=== PATIENT | female | born 1950 | race Two or more races ===

== ENCOUNTER 2020-11-16 10:51 | Inpatient (IN) | payer MEDICARE, MEDICAID ==
[~2020-11-16] VITALS: Ht 160 cm; Wt 90.7 kg
--- NOTE | 2020-11-16 10:55 | NUR ---
ED Nurse Note: pt presents to ED for AMS, per pt's daughter, she lives at home with another daughter who is COVID (+), she reports that pt has been isolating herself but in the last two days has experienced loss of appetite and increased confusion. at baseline, pt is AOx4 but today is AOx2, able to follow commands and answer simple questions. pt's daughter also reports that she has not been taking her HTN meds for unk amount of time, her BP upon triage is noted to be 231/103. pt is ambulatory with steady gait, when asked about px, she reports "a little" but cannot indicate where. pt is mildy repsonsive to pain, pulls away from COVID nasal swab. skin appears to be warm, dry and intact. vitals are otherwise stable. isolation precautions initiated
[2020-11-16 11:38] VITALS: BP 235/109
[2020-11-16 11:41] VITALS: BP 200/89
[2020-11-16 11:53] LABS: APPEARANCE,URINE CLEAR; BILIRUBIN, URINE NEGATIVE (NEGATIVE); GLUCOSE, URINE (UA) 1+ (NEGATIVE); KETONES,URINE 1+ (NEGATIVE); LEUKOCYTE ESTERASE ,URINE 1+ (NEGATIVE); NITRITE,URINE NEGATIVE (NEGATIVE); PH,URINE 6 (4.5-8.0); PROTEIN,URINE 2+ (NEGATIVE); UROBILINOGEN,URINE 1 MG/DL (0.0-1.0)
[2020-11-16 11:55] LABS: BASOPHILS % (AUTO) 1.3 % (0.0-2.0); EOSINOPHILS % (AUTO) 1.6 % (0.0-3.0); HEMOGLOBIN 13.8 G/DL (12.0-16.0); LYMPHOCYTES % (AUTO) 21.3 % (20.0-45.0); MEAN CORPUSCULAR VOLUME 92 FL (80-99); NEUTROPHILS % (AUTO) 65.9 % (45.0-75.0); PLATELET COUNT 187 K/UL (150-450); RED BLOOD COUNT 4.77 M/UL (4.20-5.40); WHITE BLOOD COUNT 8.6 K/UL (4.8-10.8)
[2020-11-16 11:56] LABS: COLOR,URINE YELLOW
[2020-11-16 11:57] LABS: INR 1.1 (0.9-1.1)
--- NOTE | 2020-11-16 12:02 | Emergency Room Report ---
History of Present Illness General Chief Complaint: Altered Mental Status Source: Patient Present Illness HPI Patient is a 70-year-old female past medical history of hypertension who was brought in by her family for altered mental status. Per family patient has been staying with her daughter who is COVID-19 positive. Over the past 2 days they report that the patient has become altered has had decreased appetite and appears fatigued. Patient is awake but not alert. She is able to follow commands but cannot give any history. Allergies: Coded Allergies: EGG (Verified Allergy, Unknown, 11/16/20) Shrimp (Verified Allergy, Unknown, 11/16/20) COVID-19 Screening Contact w/high risk pt: Yes Experienced COVID-19 symptoms?: No COVID-19 Testing performed CUSTOMER LOYALTY REPRESENTATIVE: Yes - pt's daughter has COVID COVID-19 Screening: Negative COVID-19 COVID-19 Testing Source: 2 days ago urgent care Patient History Reviewed Nursing Documentation: PMH: Agreed; PSxH: Agreed Nursing Documentation-PMH Past Medical History: No History, Except For Hx Hypertension: Yes Hx Asthma: Yes Review of Systems All Other Systems: limited - Altered mental status Physical Exam Vital Signs Date Time Temp Pulse Resp B/P (MAP) Pulse Ox O2 Delivery O2 Flow Rate FiO2 11/16/20 10:52 98.6 69 20 231/103 (145) 97 Room Air Sp02 EP Interpretation: reviewed, normal General Appearance: no apparent distress, alert, non-toxic Head: normocephalic, atraumatic Eyes: bilateral eye normal inspection, bilateral eye PERRL ENT: hearing grossly normal, normal pharynx, no angioedema, normal voice Neck: full range of motion, supple/symm/no masses Respiratory: no respiratory distress, no accessory muscle use, other - Right lower lobe rhonchi Cardiovascular #1: regular rate, rhythm Gastrointestinal: non tender, soft, no guarding, no rebound Rectal: deferred Genitourinary: no CVA tenderness Musculoskeletal: no calf tenderness, no lower extremity edema Neurologic: two way radio installer III-XII nml as tested Skin: no rash Lymphatic: no adenopathy Medical Decision Making Diagnostic Impression: Primary Impression: Encephalopathy Additional Impressions: Malignant hypertension Pneumonia ER Course Patient has been pancultured. Patient is a rapid COVID-19 PCR negative but patient kept as PUI. Patient CT brain demonstrates evidence of prior infarct but radiologist recommends MRI to rule out subacute infarct. Patient has been given aspirin and MRI has been ordered and is pending. Patient's chest x-ray consistent with pneumonia. Patient started on azithromycin as well as cefepime. Patient presented very hypertensive and has been given hydralazine. Patient's blood pressure has improved to 139/102. Patient will be admitted for further treatment and evaluation. Laboratory Tests Test 11/16/20 11:20 White Blood Count 8.6 K/UL (4.8-10.8) Red Blood Count 4.77 M/UL (4.20-5.40) Hemoglobin 13.8 G/DL (12.0-16.0) Hematocrit 44.0 % (37.0-47.0) Mean Corpuscular Volume 92 FL (80-99) Mean Corpuscular Hemoglobin 28.8 PG (27.0-31.0) Mean Corpuscular Hemoglobin Concent 31.2 G/DL (32.0-36.0) L Red Cell Distribution Width 14.0 % (11.6-14.8) Platelet Count 187 K/UL (150-450) Mean Platelet Volume 8.2 FL (6.5-10.1) Neutrophils (%) (Auto) 65.9 % (45.0-75.0) Lymphocytes (%) (Auto) 21.3 % (20.0-45.0) Monocytes (%) (Auto) 10.0 % (1.0-10.0) Eosinophils (%) (Auto) 1.6 % (0.0-3.0) Basophils (%) (Auto) 1.3 % (0.0-2.0) Prothrombin Time 11.7 SEC (9.30-11.50) H Prothrombin Time INR 1.1 (0.9-1.1) Activated Partial Thromboplast Time 25 SEC (23-33) D-Dimer 0.65 mg/L FEU (0.00-0.49) H Urine Color Yellow Urine Appearance Clear Urine pH 6 (4.5-8.0) Urine Specific [place] 1.025 (1.005-1.035) Urine Protein 2+ (NEGATIVE) H Urine Glucose (UA) 1+ (NEGATIVE) H Urine Ketones 1+ (NEGATIVE) H Urine Blood 1+ (NEGATIVE) H Urine Nitrite Negative (NEGATIVE) Urine Bilirubin Negative (NEGATIVE) Urine Urobilinogen 1 MG/DL (0.0-1.0) H Urine Leukocyte Esterase 1+ (NEGATIVE) H Urine RBC 0-2 /HPF (0 - 2) Urine WBC 0-2 /HPF (0 - 2) Urine Squamous Epithelial Cells Few /LPF (NONE/OCC) Urine Bacteria Few /HPF (NONE) Urine Mucus Few /LPF (NONE/OCC) H Sodium Level 136 MMOL/L (136-145) Potassium Level 3.7 MMOL/L (3.5-5.1) Chloride Level 100 MMOL/L (98-107) Carbon Dioxide Level 27 MMOL/L (21-32) Anion Gap 9 mmol/L (5-15) Blood Urea Nitrogen 22 mg/dL (7-18) H Creatinine 0.9 MG/DL (0.55-1.30) Estimated Glomerular Filtration Rate > 60 mL/min (>60) Glucose Level 222 MG/DL (74-106) H Lactic Acid Level Pending Calcium Level 9.0 MG/DL (8.5-10.1) Magnesium Level 2.2 MG/DL (1.8-2.4) Ferritin 38 NG/ML (8-388) Total Bilirubin 0.5 MG/DL (0.2-1.0) Aspartate Amino Transferase (AST) 28 U/L (15-37) Alanine Aminotransferase (ALT) 23 U/L (12-78) Alkaline Phosphatase 68 U/L (46-116) Lactate Dehydrogenase 205 U/L (81-234) Total Creatine Kinase 91 U/L (26-308) Troponin I 0.012 ng/mL (0.000-0.056) C-Reactive Protein, Quantitative Pending Pro-B-Type Natriuretic Peptide 461 pg/mL (0-125) H Total Protein 8.1 G/DL (6.4-8.2) Albumin 3.3 G/DL (3.4-5.0) L Globulin 4.8 g/dL Albumin/Globulin Ratio 0.7 (1.0-2.7) L Microbiology Date/Time Source Procedure Growth Status 11/16/20 11:20 Nasopharynx SARS-CoV-2 RdRp Gene Assay - Final Complete EKG Diagnostic Results Troponin ordered: Yes When was troponin ordered?: Nov 16, 2020 EKG Time: 11:15 EP Interpretation: Sylvia Pelayo MD Rate: bradycardiac - 59 bpm Rhythm: other - Sinus bradycardia ST Segments: no acute changes ASA given to the pt in ED: No Rhythm Strip Diag. Results Rhythm Strip Time: 12:01 EP Interpretation: yes - Sylvia Pelayo MD Rate: 88 bpm Rhythm: NSR, no PVC's, no ectopy Chest X-Ray Diagnostic Results Chest X-Ray Diagnostic Results : Chest X-Ray Ordered: Yes # of Views/Limited/Complete: 1 View Indication: Other - Acute encephalopathy EP Interpretation: Yes Interpretation: no effusion, no pneumothorax, other - Right lower lobe infiltrate Impression: Other - Pneumonia Electronically Signed by: Sylvia Pelayo MD Last Vital Signs Date Time Temp Pulse Resp B/P (MAP) Pulse Ox O2 Delivery O2 Flow Rate FiO2 11/16/20 11:41 200/89 11/16/20 11:38 98.6 18 97 Room Air 11/16/20 11:11 78 Disposition: ADMITTED INPATIENT - Telemetry Condition: Critical Physician Consult: Dr. White at 1250pm Referrals: [facility] (PCP) Additional Instructions: I spoke with Dr. Reno from [facility] who states they will not be transferring any patients from this area at this time. Please note that this report is being documented using [employer]on[employer] technology. This can lead to erroneous entry secondary to incorrect interpretation by the dictating instrument. Sylvia Pelayo M.D. Nov 16, 2020 12:02
[2020-11-16 12:07] LABS: ANION GAP 9 mmol/L (5-15); BLOOD UREA NITROGEN 22 mg/dL (7-18); CARBON DIOXIDE 27 MMOL/L (21-32); CHLORIDE 100 MMOL/L (98-107); CREATININE 0.9 MG/DL (0.55-1.30); POTASSIUM 3.7 MMOL/L (3.5-5.1); SODIUM 136 MMOL/L (136-145)
--- NOTE | 2020-11-16 12:21 | Diagnostic Imaging Report ---
FILM CXR 1 VIEW INDICATION: Altered mental status COMPARISON: None FINDINGS: Single frontal view demonstrates a prominent heart size. Interstitial prominence with subtle right upper and right lower lobe and left lower lobe opacities. No effusion or pneumothorax. The visualized osseous structures are within normal limits. IMPRESSION: Enlarged heart and interstitial prominence with right upper and bilateral lower lobe infiltrates
[2020-11-16 12:26] LABS: ALANINE AMINOTRANSFERASE 23 U/L (12-78); ALBUMIN 3.3 G/DL (3.4-5.0); ALBUMIN/GLOBULIN RATIO 0.7 (1.0-2.7); ALKALINE PHOSPHATASE 68 U/L (46-116); ASPARTATE AMINO TRANSFERASE 28 U/L (15-37); BILIRUBIN,TOTAL 0.5 MG/DL (0.2-1.0); CREATINE KINASE 91 U/L (26-308); FERRITIN 38 NG/ML (8-388); LACTATE DEHYDROGENASE 205 U/L (81-234)
[2020-11-16] MEDS ORDERED: Cefepime HCl 2 GM in D5W 55 ML IVPB ONE (12:45)
[2020-11-16] MEDS ORDERED: Azithromycin 500 MG in NS 275 ML IV ONE (12:45)
--- NOTE | 2020-11-16 12:50 | Diagnostic Imaging Report ---
CT HEAD Without Contrast HISTORY: Altered mental status TECHNIQUE: One or more of the following dose reduction techniques were used: automated exposure control, adjustment of the mA and/or kV according to patient size, use of iterative reconstruction technique. One or more of the following dose reduction techniques were used: automated exposure control, adjustment of the mA and/or kV according to patient size, use of iterative reconstruction technique. Total Exam volume computed tomography dose index (CTDIvol) = 53.4 mGy and Dose Length Product (DLP) = 1018.8mGY-c. Axial CT images of the head obtained. Coronal reconstructions were obtained. COMPARISON: None FINDINGS: There is an area of hypoattenuation in the left temporal and parietal lobe with volume loss. Mild periventricular white matter hypoattenuation. No acute hemorrhage or mass-effect or midline shift. Paranasal sinuses and mastoid air cells are unremarkable. No skull fracture seen. Orbital structures are unremarkable. IMPRESSION: Hypoattenuation in the left parietal and temporal lobe which has the appearance of a prior infarct although subacute ischemia cannot be excluded. This may be further evaluated with MRI. There is no acute hemorrhage or mass-effect or midline shift.
[2020-11-16 13:11] VITALS: BP 168/63
--- NOTE | 2020-11-16 13:25 | NUR ---
ED Nurse Note: reflex lactic drawn and sent to lab
--- NOTE | 2020-11-16 13:27 | NUR ---
ED Nurse Note: R forearm IV site infiltrated and removed. new IV line established to L AC; 22g, patent and intact, infusing abx per ERMD order
--- NOTE | 2020-11-16 14:21 | NUR ---
ED Nurse Note: Spoke with pt's daughter Deanna Argueta - [phone]. Per daughter, pt is supposed to be taking blood pressure medication but does not take it. Pt's daughter is unable to provide list of meds.
[2020-11-16 15:15] VITALS: BP_SYST 161; BP_SYST 186; BP_DIAS 61; BP_DIAS 80
--- NOTE | 2020-11-16 15:58 | Diagnostic Imaging Report ---
MRI HEAD Without Contrast HISTORY: Altered mental status COMPARISON: Head CT 16 November 2020 TECHNIQUE: Multiplanar and multiecho MRI images of the brain obtained without contrast FINDINGS: No abnormal intra- or extra-axial collections or parenchymal lesions are seen. There are involutional changes with prominence of the sulci, basal cisterns and ventricles. Scattered white matter hyperintensities are present, likely from small vessel disease. Large area of restricted diffusion involving the left temporal lobe and occipital lobe corresponding to a hypoattenuation the recent head CT without hemorrhagic changes.. This area demonstrates edema and sulcal thickening. IMPRESSION: 1. Restricted diffusion from acute or subacute ischemia involving the left temporal and occipital lobes. No midline shift appreciated. Age- related changes are present. No acute hemorrhage. 2. Involutional changes with small vessel disease.
--- NOTE | 2020-11-16 17:00 | NUR ---
ED Nurse Note: pt's BP in 180-190 range systolically, ERMD notified
--- NOTE | 2020-11-16 17:13 | Consultation ---
History of Present Illness General Date patient seen: Nov 16, 2020 Time patient seen: 15:30 Chief Complaint: Altered Mental Status Referring physician: Dr White Reason for Consultation: PNA Present Illness HPI 89 years old Wolof speaking female with past medical history of hypertension, asthma, was brought by he family due to altered mental status. Patient was staying at home with her daughter, who was diagnosed with COVID-19 . Over the past few days patient became altered , had decreased appetite and appeared fatigued. Patient was able to follow commands , but unable to provide any history. Upon evaluation she was afebrile , pulse oximetry was stable on room air, blood pressure was significantly elevated 231/103. CT of the head revealed hypoattenuation in the left parietal and temporal lobe, which had appearance of a prior infarct, although subacute ischemia cannot be excluded. No acute hemorrhage or mass-effect or midline shift. Chest x-ray revealed enlarged heart and interstitial prominence with right upper and bilateral lower lobe infiltrates. MRI of the brain revealed restricted diffusion from acute or subacute ischemia, involving the left temporal and occipital lobes. No acute hemorrhage, no midline shift. Small vessel disease. Laboratory work-up revealed no leukocytosis, stable hemoglobin , hematocrit and platelet count. Stable electrolytes. Lactic acid 2.1 , repeated 1.9 Glucose 222 Troponin negative , pro BNP 461 . BUN 22 , creatinine 0.9. Albumin 3.3. Urinalysis revealed +2 protein, +1 glucose, no pyuria, no bacteria. Stable LFT. Rapid COVID-19 was negative. CRP pending , LDH 205 ,ferritin 38 and D-dimer 0.65. In emergency department patient received empiric antibiotic . Hydralazine was given twice IV for elevated blood pressure , and at this time blood pressure down to 168/63 . saturating 98 % on the room air. Still in emergency department and waiting for a room to be admitted. Pulmonary consult was requested to assist in management of this patient. Allergies: Coded Allergies: EGG (Verified Allergy, Unknown, 11/16/20) Shrimp (Verified Allergy, Unknown, 11/16/20) Medication History Unable to Obtain Active Prescriptions or Reported Meds Patient History Healthcare decision maker Resuscitation status Advanced Directive on File Review of Systems ROS Narrative Unable to obtain due to patient medical condition Physical Exam General Appearance: no apparent distress, confused, other - awake, responsive, but unabel to provide answers as being asled Lines, tubes and drains: peripheral HEENT: normocephalic, atraumatic, anicteric, mucous membranes moist Neck: supple Respiratory/Chest: lungs clear - with moderate air exchange , no accessory muscle use Cardiovascular/Chest: normal rate, regular rhythm Abdomen: normal bowel sounds, non tender, soft Skin Exam: warm/dry Neurologic: responsive, other - unable to squeeze my hands ( ? does't understand me? ) but muscle strength BLE stable, pronator drift not seen when she was raising her arms while lying in the bed; unable to access gait, Last 24 Hour Vital Signs Date Time Temp Pulse Resp B/P (MAP) Pulse Ox O2 Delivery O2 Flow Rate FiO2 11/16/20 15:15 98.6 71 16 186/80 97 Room Air 11/16/20 13:11 98.6 78 18 168/63 98 Room Air 11/16/20 12:19 200/89 11/16/20 11:41 200/89 11/16/20 11:38 98.6 18 235/109 97 Room Air 11/16/20 11:17 235/109 11/16/20 11:11 78 18 11/16/20 10:52 98.6 69 20 231/103 (145) 97 Room Air Laboratory Tests Test 11/16/20 11:20 11/16/20 12:50 11/16/20 13:30 White Blood Count 8.6 K/UL (4.8-10.8) Red Blood Count 4.77 M/UL (4.20-5.40) Hemoglobin 13.8 G/DL (12.0-16.0) Hematocrit 44.0 % (37.0-47.0) Mean Corpuscular Volume 92 FL (80-99) Mean Corpuscular Hemoglobin 28.8 PG (27.0-31.0) Mean Corpuscular Hemoglobin Concent 31.2 G/DL (32.0-36.0) L Red Cell Distribution Width 14.0 % (11.6-14.8) Platelet Count 187 K/UL (150-450) Mean Platelet Volume 8.2 FL (6.5-10.1) Neutrophils (%) (Auto) 65.9 % (45.0-75.0) Lymphocytes (%) (Auto) 21.3 % (20.0-45.0) Monocytes (%) (Auto) 10.0 % (1.0-10.0) Eosinophils (%) (Auto) 1.6 % (0.0-3.0) Basophils (%) (Auto) 1.3 % (0.0-2.0) Prothrombin Time 11.7 SEC (9.30-11.50) H Prothromb Time International Ratio 1.1 (0.9-1.1) Activated Partial Thromboplast Time 25 SEC (23-33) D-Dimer 0.65 mg/L FEU (0.00-0.49) H Urine Color Yellow Urine Appearance Clear Urine pH 6 (4.5-8.0) Urine Specific [place] 1.025 (1.005-1.035) Urine Protein 2+ (NEGATIVE) H Urine Glucose (UA) 1+ (NEGATIVE) H Urine Ketones 1+ (NEGATIVE) H Urine Blood 1+ (NEGATIVE) H Urine Nitrite Negative (NEGATIVE) Urine Bilirubin Negative (NEGATIVE) Urine Urobilinogen 1 MG/DL (0.0-1.0) H Urine Leukocyte Esterase 1+ (NEGATIVE) H Urine RBC 0-2 /HPF (0 - 2) Urine WBC 0-2 /HPF (0 - 2) Urine Squamous Epithelial Cells Few /LPF (NONE/OCC) Urine Bacteria Few /HPF (NONE) Urine Mucus Few /LPF (NONE/OCC) H Sodium Level 136 MMOL/L (136-145) Potassium Level 3.7 MMOL/L (3.5-5.1) Chloride Level 100 MMOL/L (98-107) Carbon Dioxide Level 27 MMOL/L (21-32) Anion Gap 9 mmol/L (5-15) Blood Urea Nitrogen 22 mg/dL (7-18) H Creatinine 0.9 MG/DL (0.55-1.30) Estimat Glomerular Filtration Rate > 60 mL/min (>60) Glucose Level 222 MG/DL (74-106) H Lactic Acid Level 2.10 mmol/L (0.4-2.0) H 1.90 mmol/L (0.66-2.22) Calcium Level 9.0 MG/DL (8.5-10.1) Magnesium Level 2.2 MG/DL (1.8-2.4) Ferritin 38 NG/ML (8-388) Total Bilirubin 0.5 MG/DL (0.2-1.0) Aspartate Amino Transf (AST/SGOT) 28 U/L (15-37) Alanine Aminotransferase (ALT/SGPT) 23 U/L (12-78) Alkaline Phosphatase 68 U/L (46-116) Lactate Dehydrogenase 205 U/L (81-234) Total Creatine Kinase 91 U/L (26-308) Troponin I 0.012 ng/mL (0.000-0.056) C-Reactive Protein, Quantitative Pending Pro-B-Type Natriuretic Peptide 461 pg/mL (0-125) H Total Protein 8.1 G/DL (6.4-8.2) Albumin 3.3 G/DL (3.4-5.0) L Globulin 4.8 g/dL Albumin/Globulin Ratio 0.7 (1.0-2.7) L Arterial Blood pH 7.505 (7.350-7.450) Arterial Blood Partial Pressure CO2 34.7 mmHg (35.0-45.0) L Arterial Blood Partial Pressure O2 81.7 mmHg (75.0-100.0) Arterial Blood HCO3 26.8 mmol/L (22.0-26.0) H Arterial Blood Oxygen Saturation 97.0 % (95-100) Arterial Blood Base Excess 3.9 (-2-2) H Joshua Test Positive Microbiology Date/Time Source Procedure Growth Status 11/16/20 11:20 Nasopharynx SARS-CoV-2 RdRp Gene Assay - Final Complete Height (Feet): 5 Height (Inches): 3.00 Weight (Pounds): 200 Assessment/Plan Assessment/Plan: ASSESSMENT Pneumonia Suspected COVID-19/PUI ( close contact with daughter, diagnosed positive ) Acute toxic metabolic encephalopathy ( possibly due to COVID vs neurolgogical conditiion) Abnormal MRI HTN emeregency hx of asthma PLAN OF CARE admit to isolation room , monitored floor O2 titrate to keep sat > 92% HFA get CAMRYN COV2 by PCR given close contact with positive patient empiric abx hold on steroids, given pulse ox stable on RA a/coagulation with LMWH fup inflam markers HFA no evidence of asthma exacerbation fup imaging supportive care neuro eval start ASA and check lipid panel further workup per neuro recs BP management , reduce BP slowly case discussed and evaluated by supervising physician Abril Adler NP Nov 16, 2020 17:13
[2020-11-16] MEDS ORDERED: Albuterol 90mcg Inhaler 8gm INH PRN (17:15)
--- NOTE | 2020-11-16 17:41 | NUR ---
ED Nurse Note: report given to JUAN Shelley. Addendum: 11/16/20 at 1742 by JUDE on 2E
--- NOTE | 2020-11-16 18:06 | NUR ---
ED Nurse Note: Pt transfered safely to 2E on the monitor. BP 180/89.
[2020-11-16 18:13] LABS: CHOLESTEROL 218 MG/DL (< 200); HDL CHOLESTEROL 48 MG/DL (40-60); TRIGLYCERIDES 70 MG/DL (30-150)
--- NOTE | 2020-11-16 18:15 | NUR ---
NURSE NOTES: pt was transferred to via rney. inventory list accounted for. ditto machine operator was placed. VS: 99.3, 99, 18, 185/83, 99%. pt has no complaints of pain. skin is intact, no skin issues. Right 22g forearm saline lock. bed is locked and in lowest position. call light is within reach.
--- NOTE | 2020-11-16 19:40 | NUR ---
NURSE NOTES: Contacted Dr. White for admission orders. Awaiting call back.
--- NOTE | 2020-11-16 19:40 | NUR ---
NURSE NOTES: Received pt and report from JUAN Dawson. Observed pt resting in bed with both eyes open and watching television. Pt is A/Ox2-3. playground monitor is in placed; pt is NSR. IV site intact, asymptomatic, and patent. Pt is on RA; sating at 97%. Bed is in the lowest position and locked. Call light and bedside table is within reach. No signs/symptoms of acute distress noted. Will contact MD for admission orders.
--- NOTE | 2020-11-16 19:43 | NUR ---
NURSE HAND-OFF REPORT: Important Events on Shift:[] pt was transferred from ED Patient Status: [] Diet: [] Pending Orders: [] Pending Results/Labs:[] Pending MD notification:[] Latest Vital Signs: Temperature 98.2 , Pulse 79 , B/P 180 /89 , Respiratory Rate 18 , O2 SAT 98 , Room Air, O2 Flow Rate . Vital Sign Comment: [] EKG Rhythm: Rhythm change?: MD Notified?: - MD Response: Latest Chakraborty Fall Score: 85 Fall Risk: High Risk Safety Measures: Call light , Bed Alarm , Side Rails , Bed position . Fall Precautions: Report given to [].Ruby MARTINEZ
[2020-11-16 20:00] VITALS: BP 159/79
--- NOTE | 2020-11-16 20:30 | NUR ---
NURSE NOTES: Received admission orders from Dr. White. Will note and carry out.
[2020-11-17] VITALS: BP 169/91
[2020-11-17] MEDS: D5 1/2NS w/KCl 20mEq 1,000 ML IV SCH ×2 (00:15→11:20)
[2020-11-17] MEDS: HydrALAZINE 50mg tab ORAL PRN ×2 (01:14→18:37)
[2020-11-17 04:00] VITALS: BP 158/89
--- NOTE | 2020-11-17 07:35 | NUR ---
NURSE NOTES: pt is in bed eating breakfast. IV is patent, running fluids, no signs of phlebitis or infiltration noted. pt is on quality assurance monitor body and RA, no signs of cardiac or respiratory distress present. pt verbalized understanding of call light. call light is within reach, bed is locked and in lowest position.
--- NOTE | 2020-11-17 07:51 | NUR ---
NURSE HAND-OFF REPORT: Important Events on Shift: Pt was admitted for AMS and r/o COVID. Patient Status: Stable Diet: Cardiac Pending Orders: 2D Echo Pending Results/Labs: AM Labs Pending MD notification: N Latest Vital Signs: Temperature 98.0 , Pulse 64 , B/P 158 /89 , Respiratory Rate 17 , O2 SAT 97 , Room Air, O2 Flow Rate . EKG Rhythm: Sinus Rhythm Rhythm change?: N Latest Chakraborty Fall Score: 85 Fall Risk: High Risk Safety Measures: Call light Within Reach, Bed Alarm Zone 1, Side Rails Side Rails x2, Bed position . Fall Precautions: Yellow Socks Yellow Gown Door Sign Patient Fall Education Report given to JUAN Dawson.
[2020-11-17 08:00] VITALS: BP 159/89
[2020-11-17 08:26] LABS: BASOPHILS % (AUTO) 1.4 % (0.0-2.0); EOSINOPHILS % (AUTO) 3.3 % (0.0-3.0); HEMATOCRIT 41.6 % (37.0-47.0); HEMOGLOBIN 13.3 G/DL (12.0-16.0); LYMPHOCYTES % (AUTO) 17.6 % (20.0-45.0); MEAN CORPUSCULAR VOLUME 91 FL (80-99); MONOCYTES % (AUTO) 11.6 % (1.0-10.0); NEUTROPHILS % (AUTO) 66.1 % (45.0-75.0); PLATELET COUNT 195 K/UL (150-450); RED BLOOD COUNT 4.59 M/UL (4.20-5.40); RED CELL DISTRIBUTION WIDTH 14.3 % (11.6-14.8); WHITE BLOOD COUNT 8.2 K/UL (4.8-10.8)
--- NOTE | 2020-11-17 08:47 | Consultation ---
Consult Note Consult Note Neurology Consultation Date of Consultation: 11/17/2020 Reason For Referral: Altered Level of Consciousness HPI: This is a 70 years old primarily Wolof speaking female patient with past medical history of hypertension, asthma, was brought by he family due to altered mental status. Patient lives with her daughter and was apparently exposed to COVID-19, She states that over the past 3 days she became altered, also had decreased appetite and appeared fatigued. Patient was examined at bedside with 2 RN's one Wolof speaking who translated the visit with me. She admits to frontal headaches, occasional dizziness. Upon evaluation she was afebrile, able to speak and understand questions. However, she was not able to answer appropriately, at times daljit answers were not within in context of the question being answered. She was able to recognize the color "blue" of the nurses scrubs and also she was able to read the sugar label on a sugar packet, but when asked how many people were in the room besides her, she answered she has [address] of the head revealed hypoattenuation in the left parietal and temporal lobe, which had appearance of a prior infarct. No acute hemorrhage or mass-effect or midline shift. MRI of the brain revealed restricted diffusion from acute or subacute ischemia, involving the left temporal and occipital lobes. No acute hemorrhage, no midline shift. Small vessel disease. We were consulted for ALOC and AMS. Past Medical history: Hypertension Past Surgical history: Denies Family History: Non Contributory Allergies: NKDA ROS: no weight loss or fever Psychological: no depression or mood changes, no memory los Hematological and Lymphatic ROS: no swollen glands, unusual bleeding or bruising Endocrine: no polyuria, polydipsia, weight changes, temperature intolerance Respiratory : no cough, shortness of breath, or wheezing Cardiovascular: no chest pain or dyspnea on exertion Gastrointestinal: denies abdominal pain, bright red blood in stool. Musculoskeletal: no myalgias or arthralgias Neurological ROS: Left sided weakness, dizziness Dermatological ROS: no new or changing skin lesions, rashes or pruritis Physical Exam: VS reviewed General: Patient is lying in bed no acute distress Neuro: Awake and Alert Oriented x4, has insight to situation Comprehension intact. Language parameters intact. Cranial nerves II-XII are tested Pupils are round equal and sluggish. However right sided visual deficit noted. Tongue is midline. Motor: No involuntary movements. Bilateral extremity strength is equal 3/5 bilateral lower extremity 3/5. Sensation intact to light and touch. Coordination and gait intact. LAB Data: Reviewed Imaging: MRI Brain: Restricted diffusion from acute or subacute ischemia involving the left temporal and occipital lobes. No midline shift appreciated. Age- related changes are present. No acute hemorrhage. Meds: Reviewed Assessment and Rec's 1. 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 Hypertension --> Bp meds,monitor closely , consider 2D Echo 3. Obesity. Thank you for allowing us to participate in the care of this patient consultation greatly appreciated. Discussed in detail with my supervising physician Dr. Burt Leo, who is in agreement with plan of care. The time of the note does not necessarily reflect the time the patient was seen. Carmen Melara NP Nov 17, 2020 08:47
[2020-11-17 08:49] LABS: ALANINE AMINOTRANSFERASE 21 U/L (12-78); ALBUMIN 3.1 G/DL (3.4-5.0); ALBUMIN/GLOBULIN RATIO 0.8 (1.0-2.7); ALKALINE PHOSPHATASE 63 U/L (46-116); ANION GAP 7 mmol/L (5-15); ASPARTATE AMINO TRANSFERASE 19 U/L (15-37); BILIRUBIN,TOTAL 0.6 MG/DL (0.2-1.0); BLOOD UREA NITROGEN 22 mg/dL (7-18); CALCIUM 8.8 MG/DL (8.5-10.1); CARBON DIOXIDE 29 MMOL/L (21-32); CHLORIDE 102 MMOL/L (98-107); CREATININE 0.8 MG/DL (0.55-1.30); POTASSIUM 3.8 MMOL/L (3.5-5.1); SODIUM 138 MMOL/L (136-145)
[2020-11-17] MEDS: Azithromycin 500 MG in NS 275 ML IV SCH (08:53)
[2020-11-17] MEDS: Aspirin Baby 81mg ORAL SCH (08:53)
[2020-11-17] MEDS ORDERED: Enoxaparin 60mg Inj SUBQ SCH (09:00)
--- NOTE | 2020-11-17 09:41 | Pulmonology Progress Note ---
Subjective Allergies: Coded Allergies: EGG (Verified Allergy, Unknown, 11/16/20) Shrimp (Verified Allergy, Unknown, 11/16/20) Subjective on tele denies CP SOB remains on RA, sat stable awaiting COVID 19 by PCR result, in isolation for now BP better seen and evaluated by neuro Objective Last 24 Hour Vital Signs Date Time Temp Pulse Resp B/P (MAP) Pulse Ox O2 Delivery O2 Flow Rate FiO2 11/17/20 08:52 80 159/89 11/17/20 04:00 98.0 81 17 158/89 (112) 97 11/17/20 04:00 64 11/17/20 01:14 169/91 11/17/20 00:00 97.6 86 17 169/91 (117) 97 11/17/20 00:00 71 11/16/20 21:39 89 165/82 11/16/20 20:00 81 11/16/20 20:00 97.8 97 20 159/79 (105) 97 11/16/20 19:30 Room Air 11/16/20 18:06 98.2 79 18 180/89 98 Room Air 11/16/20 17:40 197/90 11/16/20 15:15 98.6 71 16 186/80 97 Room Air 11/16/20 13:11 98.6 78 18 168/63 98 Room Air 11/16/20 12:19 200/89 11/16/20 11:41 200/89 11/16/20 11:38 98.6 18 235/109 97 Room Air 11/16/20 11:17 235/109 11/16/20 11:11 78 18 11/16/20 10:52 98.6 69 20 231/103 (145) 97 Room Air Intake and Output 11/16/20 11/17/20 19:00 07:00 Intake Total 690 ml Balance 690 ml Intake Oral 240 ml IV Total 450 ml # Voids 2 Objective General Appearance: no apparent distress, confused, awake, responsive, but unable to provide answers as being asked Lines, tubes and drains: peripheral HEENT: normocephalic, atraumatic, anicteric, mucous membranes moist , apparent R sided visual deficit Neck: supple Respiratory/Chest: lungs clear - with moderate air exchange , no accessory muscle use Cardiovascular/Chest: normal rate, regular rhythm Abdomen: normal bowel sounds, non tender, soft Skin Exam: warm/dry Neurologic: responsive, unable to squeeze my hands pronator drift not seen , unable to access gait, Microbiology Date/Time Source Procedure Growth Status 11/16/20 11:20 Nasopharynx SARS-CoV-2 RdRp Gene Assay - Final Complete Laboratory Tests 11/16/20 11:20: White Blood Count 8.6, Red Blood Count 4.77, Hemoglobin 13.8, Hematocrit 44.0, Mean Corpuscular Volume 92, Mean Corpuscular Hemoglobin 28.8, Mean Corpuscular Hemoglobin Concent 31.2L, Red Cell Distribution Width 14.0, Platelet Count 187, Mean Platelet Volume 8.2, Neutrophils (%) (Auto) 65.9, Lymphocytes (%) (Auto) 21.3, Monocytes (%) (Auto) 10.0, Eosinophils (%) (Auto) 1.6, Basophils (%) (Auto) 1.3, Prothrombin Time 11.7H, Prothromb Time International Ratio 1.1, Activated Partial Thromboplast Time 25, D-Dimer 0.65H, Urine Color Yellow, Urine Appearance Clear, Urine pH 6, Urine Specific [place] 1.025, Urine Protein 2+H, Urine Glucose (UA) 1+H, Urine Ketones 1+H, Urine Blood 1+H, Urine Nitrite Negative, Urine Bilirubin Negative, Urine Urobilinogen 1H, Urine Leukocyte Esterase 1+H, Urine RBC 0-2, Urine WBC 0-2, Urine Squamous Epithelial Cells Few, Urine Bacteria Few, Urine Mucus FewH, Sodium Level 136, Potassium Level 3.7, Chloride Level 100, Carbon Dioxide Level 27, Anion Gap 9, Blood Urea Nitrogen 22H, Creatinine 0.9, Estimat Glomerular Filtration Rate > 60, Glucose Level 222H , Lactic Acid Level 2.10H, Calcium Level 9.0, Magnesium Level 2.2, Ferritin 38, Total Bilirubin 0.5, Aspartate Amino Transf (AST/SGOT) 28, Alanine Aminotransferase (ALT/SGPT) 23, Alkaline Phosphatase 68, Lactate Dehydrogenase 205, Total Creatine Kinase 91, Troponin I 0.012, C-Reactive Protein, Quantitative [Pending], Pro-B-Type Natriuretic Peptide 461H, Total Protein 8.1, Albumin 3.3L, Globulin 4.8, Albumin/Globulin Ratio 0.7L, Triglycerides Level 70, Cholesterol Level 218H, LDL Cholesterol 141H, HDL Cholesterol 48, [place]ol[place] rol/HDL Ratio 4.5H 11/16/20 12:50: Arterial Blood pH 7.505H, Arterial Blood Partial Pressure CO2 34.7L, Arterial Blood Partial Pressure O2 81.7, Arterial Blood HCO3 26.8H, Arterial Blood Oxygen Saturation 97.0, Arterial Blood Base Excess 3.9H, Joshua Test Positive 11/16/20 13:30: Lactic Acid Level 1.90 11/17/20 07:05: White Blood Count 8.2, Red Blood Count 4.59, Hemoglobin 13.3, Hematocrit 41.6, Mean Corpuscular Volume 91, Mean Corpuscular Hemoglobin 29.1, Mean Corpuscular Hemoglobin Concent 32.1, Red Cell Distribution Width 14.3, Platelet Count 195, Mean Platelet Volume 9.2, Neutrophils (%) (Auto) 66.1, Lymphocytes (%) (Auto) 17.6L, Monocytes (%) (Auto) 11.6H, Eosinophils (%) (Auto) 3.3H, Basophils (%) (Auto) 1.4, Sodium Level 138, Potassium Level 3.8, Chloride Level 102, Carbon Dioxide Level 29, Anion Gap 7, Blood Urea Nitrogen 22H, Creatinine 0.8, Estimat Glomerular Filtration Rate > 60, Glucose Level 142H, Calcium Level 8.8, Magnesium Level 2.2, Total Bilirubin 0.6, Aspartate Amino Transf (AST/SGOT) 19, Alanine Aminotransferase (ALT/SGPT) 21, Alkaline Phosphatase 63, Total Protein 6.9, Albumin 3.1L, Globulin 3.8, Albumin/Globulin Ratio 0.8L, Phosphorus Level 3.0 Current Medications Medications (Trade) Dose Ordered Sig/Jaquan Route PRN Reason Start Time Stop Time Status Last Admin Dose Admin Albuterol Sulfate (Proventil MDI) 2 puff Q4H PRN INH Shortness of Breath 11/16/20 17:15 02/14/21 17:14 Aspirin (ASA) 81 mg DAILY ORAL 11/17/20 09:00 01/01/21 08:59 11/17/20 08:53 Azithromycin 500 mg/Sodium Chloride 275 ml @ 275 mls/hr DAILY IV 11/17/20 09:00 11/22/20 08:59 11/17/20 08:53 Carvedilol (Coreg) 3.125 mg EVERY 12 HOURS ORAL 11/16/20 21:00 12/16/20 20:59 11/17/20 08:52 Ceftriaxone Sodium 1 gm/ Sodium Chloride 55 ml @ 110 mls/hr DAILY IVPB 11/17/20 09:00 11/24/20 08:59 Dextrose/ Electrolytes 1,000 ml @ 75 mls/hr [id number] IV 11/16/20 22:00 12/16/20 21:59 11/17/20 00:15 Enoxaparin Sodium (Lovenox) 40 mg DAILY SUBQ 11/17/20 09:00 02/15/21 08:59 11/17/20 08:52 Hydralazine HCl (Apresoline) 50 mg Q6HR PRN ORAL SBP >160 11/16/20 20:45 02/14/21 20:44 11/17/20 01:14 Assessment/Plan Assessment/Plan ASSESSMENT Pneumonia Suspected COVID-19/PUI ( close contact with daughter, diagnosed positive ) Acute toxic metabolic encephalopathy ( possibly due to COVID vs neurological condition) Abnormal MRI -likely CVA, 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 HTN emergency hx of asthma PLAN OF CARE tele isolation room , monitored floor O2 titrate to keep sat > 92% HFA get CAMRYN COV2 by PCR given close contact with positive patient empiric abx hold on steroids, given pulse ox stable on RA a/coagulation with LMWH fup inflam markers HFA no evidence of asthma exacerbation fup imaging neuro eval appreciated MRI/MRA head and neck pending ASA lipid panel -elevated TC and LDL start statin carotid duplex pending ECHO BP management -Hydralazine and BB case discussed and evaluated by supervising physician Abril Adler NP Nov 17, 2020 09:41
[2020-11-17] MEDS: cefTRIAXone 1 GM in NS 55 ML IVPB SCH (11:16)
--- NOTE | 2020-11-17 11:57 | Diagnostic Imaging Report ---
EXAM: US Duplex Bilateral Extracranial Arteries CLINICAL HISTORY: ALOC TECHNIQUE: Real-time duplex ultrasound scan of the extracranial arteries integrating B-mode two-dimensional vascular structure, Doppler spectral analysis and color flow Doppler imaging. COMPARISON: None FINDINGS: Right common carotid artery: Unremarkable. No occlusion or significant stenosis on color flow and spectral Doppler imaging. Right internal carotid artery: Peak systolic velocity in the right ICA measures 66.8 cm/s. No occlusion or significant stenosis on color flow and spectral Doppler imaging. Right external carotid artery: Unremarkable. No occlusion or significant stenosis on color flow and spectral Doppler imaging. Right vertebral artery: Unremarkable. Antegrade flow. Right ICA/CCA ratio: Unremarkable. Within normal limits. Left common carotid artery: Unremarkable. No occlusion or significant stenosis on color flow and spectral Doppler imaging. Left internal carotid artery: Peak systolic velocity in the left ICA measures 44.6 cm/s. Diffuse intimal plaque bilaterally. Small calcified plaque in the proximal left ICA. No occlusion or significant stenosis on color flow and spectral Doppler imaging. Left external carotid artery: Unremarkable. No occlusion or significant stenosis on color flow and spectral Doppler imaging. Left vertebral artery: Unremarkable. Antegrade flow. Left ICA/CCA ratio: Unremarkable. Within normal limits. Lymph nodes: Unremarkable. No lymphadenopathy. CAROTID STENOSIS REFERENCE USING SRU CRITERIA: Mild - <50% stenosis. ICA PSV is less than 125 cm/second and plaque or intimal thickening is visible. Moderate - 50-69% stenosis. ICA PSV is 125 to 230 cm/second and plaque is visible. Severe - 70-94% stenosis. ICA PSV is more than 230 cm/second and visible plaque with lumen narrowing is seen. Near occlusion - 95-99% stenosis. ICA PSV is variable and significant plaque with luminal narrowing is seen. Occluded - 100% stenosis. No flow identified. IMPRESSION: 1. No hemodynamically significant stenosis in either ICA. 2. Normal antegrade flow in bilateral vertebral arteries.
[2020-11-17 12:00] VITALS: BP 166/70
--- NOTE | 2020-11-17 13:58 | History & Physical ---
History and Physical History & Physicial Dictated for Int Med-Dr White no [id number] Lennox Loco MD Nov 17, 2020 13:58
--- NOTE | 2020-11-17 14:00 | NUR ---
NURSE NOTES: weaned pt off of venturi mask to NC 3L, pt is saturating at >97%. monitored and stayed with pt for 15 minutes. no signs of respiratory distress noted. Addendum: 11/18/20 at 0750 by Samir Toledo RN disregard wrong patient
--- NOTE | 2020-11-17 14:29 | History and Physical Report ---
DATE OF ADMISSION: 11/16/2020 CHIEF COMPLAINT: The patient is a 70-year-old female who presents with a chief complaint of altered mental status. HISTORY OF PRESENT ILLNESS: The patient lives with her daughter who apparently tested COVID positive. The patient began to experience worsening confusion over the last couple of days. The patient also had decreased appetite and was not eating. The patient also appeared fatigued. The patient presented to [place] emergency room. Rapid COVID test was reported as nonreactive. A rapid COVID-19 test at [facility] was reported as negative. The patient was found to have an acute or subacute left cerebrovascular accident. The patient is admitted with altered mental status and probable acute cerebrovascular accident. REVIEW OF SYSTEMS: Unable to assess secondary to the patient's mental status. PAST MEDICAL HISTORY: Significant for: 1. Hypertension. 2. Asthma. PAST SURGICAL HISTORY: The patient denies. CURRENT MEDICATIONS: Unknown. ALLERGIES: No known drug allergies. SOCIAL HISTORY: The patient is a . The patient lives with her adult daughter. The patient denies tobacco or alcohol use. PHYSICAL EXAMINATION: VITAL SIGNS: Temperature 98.6, respirations 20, pulse 69, blood pressure 231/103. GENERAL: The patient is well-developed, well-nourished obese female, in no apparent distress. HEENT: Eyes, pupils are equal and responsive to light and accommodation. Extraocular movements are intact. NECK: Supple without lymphadenopathy. CHEST: Lungs are clear to auscultation bilaterally without wheezes or rales. CARDIOVASCULAR: Regular rhythm and rate. S1 and S2 normal without murmurs, rubs, or gallops. ABDOMEN: Soft, nontender, and nondistended. Positive bowel sounds. No evidence of hepatosplenomegaly. Currently, no rebound or guarding noted. EXTREMITIES: Negative for clubbing, cyanosis, or edema. RECTAL/GENITAL: Not performed. NEUROLOGIC: Cranial nerves II through XII are grossly intact without focal deficits. LABORATORY STUDIES: WBC 8.6, hemoglobin 13.8, hematocrit 44.0, platelets 187,000. Sodium 136, potassium 3.7, chloride 100, CO2 27, BUN 22, creatinine 0.9, glucose 222. Troponin 0.012. CT scan of the brain revealed hypoattenuation in the left parietal and left temporal lobe consistent with subacute ischemic attack. ASSESSMENT: This is a 70-year-old female. 1. Altered mental status. 2. Acute left cerebrovascular accident. 3. Hypertension. 4. Asthma. TREATMENT: 1. Altered mental status, this may be secondary to acute cerebrovascular accident. 2. Acute left cerebrovascular accident. A Neurology consultation has been obtained. The patient has been started empirically on aspirin. Follow recommendations of Neurology. 3. Hypertension. The patient has hypertensive emergency by criteria admission blood pressure. The patient has been started on p.r.n. The patient has been started on carvedilol 3.125 mg twice daily. Follow recommendations of Cardiology. 4. Asthma. 5. Bilateral pneumonia by chest x-ray. The patient has been started empirically on ceftriaxone and azithromycin. A Pulmonary consultation has been obtained with Dr. Mcmillan. Lennox Loco M.D. DR: Johnny JOB#: [id number] CC:
[2020-11-17 16:00] VITALS: BP 194/89
--- NOTE | 2020-11-17 19:32 | NUR ---
NURSE NOTES: Received pt and report from JUAN Dawson. Observed pt resting in bed with both eyes open. Pt is A/Ox2-3. satellite project site monitor is in placed; pt is NSR. IV site intact, asymptomatic, and patent. Pt is on RA; sating at 98%. Bed is in the lowest position and locked. Call light and bedside table is within reach. No signs/symptoms of acute distress noted. Will continue plan of care.
--- NOTE | 2020-11-17 19:34 | NUR ---
NURSE HAND-OFF REPORT: Important Events on Shift:[] pt is now on NC 2L, weaned off from venturi mask Patient Status: [] full code Diet: [] cardiac Pending Orders: [] Pending Results/Labs:[] Pending MD notification:[] Latest Vital Signs: Temperature 96.6 , Pulse 67 , B/P 194 /89 , Respiratory Rate 19 , O2 SAT 100 , Room Air, O2 Flow Rate . Vital Sign Comment: [] EKG Rhythm: Sinus Rhythm Rhythm change?: N MD Notified?: - MD Response: Latest Chakraborty Fall Score: 85 Fall Risk: High Risk Safety Measures: Call light Within Reach, Bed Alarm Zone 1, Side Rails Side Rails x2, Bed position Low and Locked. Fall Precautions: Yellow Socks Yellow Gown Door Sign Patient Fall Education Report given to [].Ruby MARTINEZ Addendum: 11/17/20 at 1937 by Samir Toledo RN disregard note wrong patient
[2020-11-17 20:00] VITALS: BP 167/84
[2020-11-17] MEDS: Atorvastatin 20mg tab ORAL SCH (21:14)
--- NOTE | 2020-11-17 23:38 | NUR ---
NURSE NOTES: Entered pt's room and noticed both IVs are on the bedside table. Some blood noted on blanket. Bleeding has stopped. No acute distress noted. Will insert IV shortly.
[2020-11-18] VITALS: BP 156/80
--- NOTE | 2020-11-18 02:22 | NUR ---
NURSE NOTES: Observed pt asleep in bed. Pt is currently on room air; sating at 98%. No signs/symptoms of acute distress noted. Will continue plan of care.
[2020-11-18 04:00] VITALS: BP 125/73
--- NOTE | 2020-11-18 07:14 | NUR ---
NURSE HAND-OFF REPORT: Important Events on Shift: Pt was slightly confused last night and pulled out IVs. Endorsed to dayshift nurse. Pt is currently calm and eating breakfast. Patient Status: Stable Diet: Cardiac Pending Orders: MRI neck & head no contrast Pending Results/Labs: AM Labs Pending MD notification: N Latest Vital Signs: Temperature 98.4 , Pulse 69 , B/P 125 /73 , Respiratory Rate 19 , O2 SAT 97 , Room Air, O2 Flow Rate . EKG Rhythm: Sinus Rhythm Rhythm change?: N Latest Chakraborty Fall Score: 85 Fall Risk: High Risk Safety Measures: Call light Within Reach, Bed Alarm Zone 1, Side Rails Side Rails x2, Bed position Low and Locked. Fall Precautions: Yellow Socks Yellow Gown Door Sign Patient Fall Education Report given to JUAN Dawson.
--- NOTE | 2020-11-18 07:49 | NUR ---
NURSE NOTES: pt is in bed and eating breakfast. pt is on lunchroom monitor and RA no signs of cardiac or respiratory distress noted. bed is locked and in lowest position, call light is within reach. IV is patent no signs of phlebitis
[2020-11-18 08:00] VITALS: BP 179/69
--- NOTE | 2020-11-18 08:27 | NUR ---
NURSE NOTES: pt BP is 179/69, pulse is 67. per pharmacy it is okay to give scheduled Coreg and PRN hydralazine
[2020-11-18] MEDS: cefTRIAXone 1 GM in NS 55 ML IVPB SCH (08:31)
[2020-11-18] MEDS: Aspirin Baby 81mg ORAL SCH (08:32)
[2020-11-18 08:34] LABS: EOSINOPHILS % (AUTO) 5.2 % (0.0-3.0); HEMOGLOBIN 12.2 G/DL (12.0-16.0); LYMPHOCYTES % (AUTO) 23.4 % (20.0-45.0); MEAN CORPUSCULAR VOLUME 88 FL (80-99); MONOCYTES % (AUTO) 8.7 % (1.0-10.0); NEUTROPHILS % (AUTO) 61.7 % (45.0-75.0); PLATELET COUNT 163 K/UL (150-450); RED BLOOD COUNT 4.19 M/UL (4.20-5.40); RED CELL DISTRIBUTION WIDTH 14.8 % (11.6-14.8); WHITE BLOOD COUNT 7.4 K/UL (4.8-10.8)
[2020-11-18] MEDS: HydrALAZINE 50mg tab ORAL PRN ×3 (08:34→19:42)
[2020-11-18] MEDS: Enoxaparin 40mg Inj SUBQ SCH (08:37)
[2020-11-18 09:11] LABS: ALANINE AMINOTRANSFERASE 22 U/L (12-78); ALBUMIN 2.8 G/DL (3.4-5.0); ALBUMIN/GLOBULIN RATIO 0.7 (1.0-2.7); ALKALINE PHOSPHATASE 59 U/L (46-116); ANION GAP 9 mmol/L (5-15); ASPARTATE AMINO TRANSFERASE 22 U/L (15-37); BILIRUBIN,TOTAL 0.5 MG/DL (0.2-1.0); BLOOD UREA NITROGEN 17 mg/dL (7-18); CARBON DIOXIDE 25 MMOL/L (21-32); CHLORIDE 101 MMOL/L (98-107); CREATININE 0.9 MG/DL (0.55-1.30); POTASSIUM 4.1 MMOL/L (3.5-5.1); SODIUM 134 MMOL/L (136-145)
--- NOTE | 2020-11-18 09:49 | Pulmonology Progress Note ---
Subjective Allergies: Coded Allergies: EGG (Verified Allergy, Unknown, 11/16/20) Shrimp (Verified Allergy, Unknown, 11/16/20) Subjective on tele denies CP SOB remains on RA, sat stable awaiting COVID 19 by PCR result, in isolation for now Objective Last 24 Hour Vital Signs Date Time Temp Pulse Resp B/P (MAP) Pulse Ox O2 Delivery O2 Flow Rate FiO2 11/18/20 08:34 179/69 11/18/20 08:32 67 179/69 11/18/20 04:00 69 11/18/20 04:00 98.4 88 19 125/73 (90) 97 11/18/20 00:00 98.5 80 19 156/80 (105) 98 11/18/20 00:00 73 11/17/20 21:15 89 177/88 11/17/20 21:00 Room Air 11/17/20 20:00 78 11/17/20 20:00 98.1 88 17 167/84 (111) 96 11/17/20 18:37 194/89 11/17/20 16:00 96.6 66 19 194/89 (124) 100 11/17/20 16:00 67 11/17/20 12:00 68 11/17/20 12:00 97.3 73 19 166/70 (102) 96 Intake and Output 0 11/17/20 11/18/20 19:00 07:00 Intake Total 600 ml 720 ml Balance 600 ml 720 ml Intake Oral 600 ml 360 ml Other 360 ml # Voids 2 4 Objective General Appearance: no apparent distress, confused, awake, responsive, but unable to provide answers as being asked Lines, tubes and drains: peripheral HEENT: normocephalic, atraumatic, anicteric, mucous membranes moist , apparent R sided visual deficit Neck: supple Respiratory/Chest: lungs clear - with moderate air exchange , no accessory muscle use Cardiovascular/Chest: normal rate, regular rhythm Abdomen: normal bowel sounds, non tender, soft Skin Exam: warm/dry Neurologic: responsive, unable to squeeze my hands pronator drift not seen , unable to access gait, Microbiology Date/Time Source Procedure Growth Status 11/16/20 11:20 Nasopharynx SARS-CoV-2 RdRp Gene Assay - Final Complete Laboratory Tests 11/18/20 08:00: White Blood Count 7.4, Red Blood Count 4.19L, Hemoglobin 12.2, Hematocrit 37.0, Mean Corpuscular Volume 88, Mean Corpuscular Hemoglobin 29.2, Mean Corpuscular Hemoglobin Concent 33.1, Red Cell Distribution Width 14.8, Platelet Count 163, Mean Platelet Volume 9.1, Neutrophils (%) (Auto) 61.7, Lymphocytes (%) (Auto) 23.4, Monocytes (%) (Auto) 8.7, Eosinophils (%) (Auto) 5.2H, Basophils (%) (Auto) 1.0, Sodium Level 134L, Potassium Level 4.1, Chloride Level 101, Carbon Dioxide Level 25, Anion Gap 9, Blood Urea Nitrogen 17, Creatinine 0.9, Estimat Glomerular Filtration Rate > 60, Glucose Level 242#H, Calcium Level 8.0L, Total Bilirubin 0.5, Aspartate Amino Transf (AST/SGOT) 22, Alanine Aminotransferase (ALT/SGPT) 22, Alkaline Phosphatase 59, Total Protein 6.7, Albumin 2.8L, Globulin 3.9, Albumin/Globulin Ratio 0.7L Current Medications Medications (Trade) Dose Ordered Sig/Jaquan Route PRN Reason Start Time Stop Time Status Last Admin Dose Admin Albuterol Sulfate (Proventil MDI) 2 puff Q4H PRN INH Shortness of Breath 11/16/20 17:15 02/14/21 17:14 Aspirin (ASA) 81 mg DAILY ORAL 11/17/20 09:00 01/01/21 08:59 11/18/20 08:32 Atorvastatin Calcium (Lipitor) 40 mg BEDTIME ORAL 11/17/20 21:00 02/15/21 20:59 11/17/20 21:14 Azithromycin 500 mg/Sodium Chloride 275 ml @ 275 mls/hr DAILY IV 11/17/20 09:00 11/22/20 08:59 11/17/20 08:53 Carvedilol (Coreg) 3.125 mg EVERY 12 HOURS ORAL 11/16/20 21:00 12/16/20 20:59 11/18/20 08:32 Ceftriaxone Sodium 1 gm/ Sodium Chloride 55 ml @ 110 mls/hr DAILY IVPB 11/17/20 09:00 11/24/20 08:59 11/18/20 08:31 Enoxaparin Sodium (Lovenox) 40 mg DAILY SUBQ 11/18/20 09:00 02/16/21 08:59 11/18/20 08:37 Hydralazine HCl (Apresoline) 50 mg Q6HR PRN ORAL SBP >160 11/16/20 20:45 02/14/21 20:44 11/18/20 08:34 Assessment/Plan Assessment/Plan ASSESSMENT Pneumonia Suspected COVID-19/PUI ( close contact with daughter, diagnosed positive ) Acute toxic metabolic encephalopathy ( possibly due to COVID vs neurological condition) Abnormal MRI -likely CVA, 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 HTN emergency hx of asthma PLAN OF CARE tele isolation room , monitored floor O2 titrate to keep sat > 92% HFA get CAMYRN COV2 by PCR given close contact with positive patient empiric abx hold on steroids, given pulse ox stable on RA a/coagulation with LMWH fup inflam markers HFA no evidence of asthma exacerbation fup imaging neuro eval appreciated MRI/MRA head and neck pending ASA lipid panel -elevated TC and LDL -> start statin carotid duplex -> No hemodynamically significant stenosis in either ICA. ECHO with pEF venous Dueplx BLE MRA head and neck pending BP management -BB and Hydralazine prn for spikes check HgA1c given hyperglycemia swallow eval PT fall precautions case discussed and evaluated by supervising physician Abril Adler NP Nov 18, 2020 09:49
--- NOTE | 2020-11-18 10:50 | Cardiology Report ---
APPROVED REPORT EKG Measurement Heart [id number] <Conclusion> Sinus bradycardia Left ventricular hypertrophy with repolarization abnormality Abnormal ECG
[2020-11-18] MEDS ORDERED: ASPIRIN81 MG ORAL (11:01)
[2020-11-18] MEDS ORDERED: MULTIVITAMINS1 EAC2 ORAL (11:01)
[2020-11-18 12:00] VITALS: BP 162/81
[2020-11-18] MEDS: Azithromycin 500 MG in NS 275 ML IV SCH (12:40)
[2020-11-18] MEDS ORDERED: Varibar Pudding 230ml MC PRN (14:00)
[2020-11-18] MEDS ORDERED: Varibar Thin Liquid powder 148gm MC PRN (14:00)
[2020-11-18] MEDS ORDERED: Varibar Honey 250ml MC PRN (14:00)
[2020-11-18] MEDS ORDERED: Varibar Nectar 240ml MC PRN (14:00)
--- NOTE | 2020-11-18 15:40 | Diagnostic Imaging Report ---
Indications: Altered level of consciousness, evidence of acute left temporal and occipital CVA on recent brain MRI Technique: 3D [id number] images obtained through the [place] [facility] [place]. 3-D MIP reconstructions were generated in multiple rotational projections on an integrated workstation Comparison: none Findings: Patent nonstenotic codominant distal vertebral arteries. Both PICAs are demonstrated. Patent nonstenotic basilar artery. Bilateral superior cerebellar arteries are patent. The bilateral posterior cerebral arteries are patent without evidence of significant stenosis. Neither posterior communicating artery is visualized. Patent nonstenotic distal internal carotid arteries. There is mild narrowing of the left carotid siphon. Patent nonstenotic bilateral middle cerebral arteries and proximal branches. Patent nonstenotic bilateral anterior cerebral arteries and proximal branches. No evidence of aneurysm or vascular malformation. Impression: No evidence of significant proximal cerebrovascular insufficiency demonstrated. Mild stenosis: Less than 50% diameter Moderate stenosis: 50-69% diameter Severe stenosis: 70+% diameter All stenosis measurements are based on NASCET criteria, using normal distal vessel diameter as the denominator
--- NOTE | 2020-11-18 15:41 | Diagnostic Imaging Report ---
Indication: Weakness, history of altered level of consciousness, left temporal CVA demonstrated on recent MRI Technique: Axial 2-D [id number] images were obtained through the neck. 3-D MIP reconstructions were generated integrated workstation. No postcontrast images were obtained, per referring physician request Comparison: none Findings: Exam is limited. Findings are taken from the source images as the MIP images are essentially nondiagnostic. Unremarkable aortic arch. Patent right brachiocephalic artery. The right common carotid origin is poorly visualized, in part due to tortuosity resulting in-plane flow and in part due to motion artifact. The remainder of the right common carotid artery is patent and grossly nonstenotic. The right proximal internal carotid artery is patent and nonstenotic, gives off a sizable proximal anterior cerebral and proximal middle cerebral arteries. The proximal right subclavian artery is poorly visualized. The origin of the right vertebral artery is poorly visualized. Appears possibly stenotic but this could be artifactual. The remainder of the right vertebral artery is normal in caliber. The basilar artery is included, appears normal in caliber as do the proximal posterior cerebral arteries. The origin of the left common carotid artery is not well-demonstrated. The remainder of the common carotid artery is well-visualized, patent, nonstenotic, as is left internal carotid artery. There may be mild narrowing of the distal left internal carotid artery at the carotid siphon. The A1 segment of the left anterior cerebral artery is not definitely visualized as are portions of the branches of the middle cerebral artery. The left proximal subclavian artery is patent and nonstenotic. Patent nonstenotic left vertebral artery. Impression: Very limited exam, due to lack of postcontrast images, motion artifact, and inherent limitations of noncontrast [id number] imaging particularly in tortuous vessels. No gross evidence of significant extracranial cerebrovascular disease. Note, however, that certain segments of the vessels are not clearly visualized and stenoses within the segments cannot be ruled out Mild stenosis: Less than 50% diameter Moderate stenosis: 50-69% diameter Severe stenosis: 70+% diameter All stenosis measurements are based on NASCET criteria, using normal distal vessel diameter as the denominator
--- NOTE | 2020-11-18 15:41 | Diagnostic Imaging Report ---
Indication: Bilateral leg pain Technique: Grayscale and duplex images of the bilateral lower extremity veins Comparison: Findings: Bilaterally, grayscale and duplex images demonstrate no evidence of intraluminal thrombus. Normal phasic Doppler waveforms, demonstrating normal augmentation response and no evidence of valvular insufficiency. Greater saphenous vein(s) and tibial veins are patent. Normal compressibility. Impression: Negative for evidence of lower extremity deep venous thrombosis bilaterally
[2020-11-18 16:00] VITALS: BP 140/90
--- NOTE | 2020-11-18 16:43 | NUR ---
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
[2020-11-18] MEDS: NovoLOG Insulin Flexpen SUBQ SCH ×2 (17:00→21:00)
--- NOTE | 2020-11-18 18:38 | Internal Med Progress Note ---
Subjective Date of Service: Nov 18, 2020 Physician Name Lennox Loco Attending Physician Titi White MD Current Medications Medications (Trade) Dose Ordered Sig/Jaquan Route PRN Reason Start Time Stop Time Status Last Admin Dose Admin Albuterol Sulfate (Proventil MDI) 2 puff Q4H PRN INH Shortness of Breath 11/16/20 17:15 02/14/21 17:14 Aspirin (ASA) 81 mg DAILY ORAL 11/17/20 09:00 01/01/21 08:59 11/18/20 08:32 Atorvastatin Calcium (Lipitor) 40 mg BEDTIME ORAL 11/17/20 21:00 02/15/21 20:59 11/17/20 21:14 Azithromycin 500 mg/Sodium Chloride 275 ml @ 275 mls/hr DAILY IV 11/17/20 09:00 11/22/20 08:59 11/18/20 12:40 Barium Sulfate (Varibar Honey) 250 ml NOW PRN MC RAD 11/18/20 14:00 11/21/20 13:50 Barium Sulfate (Varibar [place]) 240 ml NOW PRN MC RAD 11/18/20 14:00 11/21/20 13:50 Barium Sulfate (Varibar Pudding) 230 ml NOW PRN MC RAD 11/18/20 14:00 11/21/20 13:50 Barium Sulfate (Varibar Thin Liquid powder) 148 gm NOW PRN MC RAD 11/18/20 14:00 11/21/20 13:50 Carvedilol (Coreg) 3.125 mg EVERY 12 HOURS ORAL 11/16/20 21:00 11/18/20 20:00 11/18/20 08:32 Carvedilol (Coreg) 6.25 mg EVERY 12 HOURS ORAL 11/18/20 21:00 12/16/20 20:59 Ceftriaxone Sodium 1 gm/ Sodium Chloride 55 ml @ 110 mls/hr DAILY IVPB 11/17/20 09:00 11/24/20 08:59 11/18/20 08:31 Dextrose (Dextrose 50%) 25 ml Q30M PRN IV Hypoglycemia 11/18/20 15:45 02/16/21 15:44 Dextrose (Dextrose 50%) 50 ml Q30M PRN IV Hypoglycemia 11/18/20 15:45 02/16/21 15:44 Enoxaparin Sodium (Lovenox) 40 mg DAILY SUBQ 11/18/20 09:00 02/16/21 08:59 11/18/20 08:37 Hydralazine HCl (Apresoline) 50 mg Q6HR PRN ORAL SBP >160 11/16/20 20:45 02/14/21 20:44 11/18/20 14:09 Insulin Aspart (NovoLOG) BEFORE MEALS AND HS SUBQ 11/18/20 17:00 02/16/21 16:59 Allergies: Coded Allergies: EGG (Verified Allergy, Unknown, 11/16/20) Shrimp (Verified Allergy, Unknown, 11/16/20) ROS Limited/Unobtainable: Yes Subjective 70 YO F admitted with altered mental status. Now acute cerebral vascular accident and pneumonia. Cover for Int Med-Dr White. Objective Last Vital Signs Date Time Temp Pulse Resp B/P (MAP) Pulse Ox O2 Delivery O2 Flow Rate FiO2 11/18/20 16:00 70 11/18/20 16:00 96.2 18 140/90 (107) 98 11/18/20 09:00 Room Air Laboratory Tests Test 11/18/20 08:00 11/18/20 08:30 White Blood Count 7.4 K/UL (4.8-10.8) Red Blood Count 4.19 M/UL (4.20-5.40) L Hemoglobin 12.2 G/DL (12.0-16.0) Hematocrit 37.0 % (37.0-47.0) Mean Corpuscular Volume 88 FL (80-99) Mean Corpuscular Hemoglobin 29.2 PG (27.0-31.0) Mean Corpuscular Hemoglobin Concent 33.1 G/DL (32.0-36.0) Red Cell Distribution Width 14.8 % (11.6-14.8) Platelet Count 163 K/UL (150-450) Mean Platelet Volume 9.1 FL (6.5-10.1) Neutrophils (%) (Auto) 61.7 % (45.0-75.0) Lymphocytes (%) (Auto) 23.4 % (20.0-45.0) Monocytes (%) (Auto) 8.7 % (1.0-10.0) Eosinophils (%) (Auto) 5.2 % (0.0-3.0) H Basophils (%) (Auto) 1.0 % (0.0-2.0) Sodium Level 134 MMOL/L (136-145) L Potassium Level 4.1 MMOL/L (3.5-5.1) Chloride Level 101 MMOL/L (98-107) Carbon Dioxide Level 25 MMOL/L (21-32) Anion Gap 9 mmol/L (5-15) Blood Urea Nitrogen 17 mg/dL (7-18) Creatinine 0.9 MG/DL (0.55-1.30) Estimat Glomerular Filtration Rate > 60 mL/min (>60) Glucose Level 242 MG/DL (74-106) #H Calcium Level 8.0 MG/DL (8.5-10.1) L Total Bilirubin 0.5 MG/DL (0.2-1.0) Aspartate Amino Transf (AST/SGOT) 22 U/L (15-37) Alanine Aminotransferase (ALT/SGPT) 22 U/L (12-78) Alkaline Phosphatase 59 U/L (46-116) Total Protein 6.7 G/DL (6.4-8.2) Albumin 2.8 G/DL (3.4-5.0) L Globulin 3.9 g/dL Albumin/Globulin Ratio 0.7 (1.0-2.7) L Hemoglobin A1c 7.4 % (4.3-6.0) H Microbiology Date/Time Source Procedure Growth Status 11/16/20 11:20 Nasopharynx SARS-CoV-2 RdRp Gene Assay - Final Complete 11/16/20 11:20 Blood Blood Culture - Preliminary NO GROWTH AFTER 48 HOURS Resulted 11/16/20 11:05 Blood Blood Culture - Preliminary NO GROWTH AFTER 48 HOURS Resulted Intake and Output 11/17/20 11/18/20 19:00 07:00 Intake Total 600 ml 720 ml Balance 600 ml 720 ml Intake Oral 600 ml 360 ml Other 360 ml # Voids 2 4 Objective PHYSICAL EXAMINATION: GENERAL: The patient is well-developed, well-nourished obese female, in no apparent distress. HEENT: Eyes, pupils are equal and responsive to light and accommodation. Extraocular movements are intact. NECK: Supple without lymphadenopathy. CHEST: Lungs are clear to auscultation bilaterally without wheezes or rales. CARDIOVASCULAR: Regular rhythm and rate. S1 and S2 normal without murmurs, rubs, or gallops. ABDOMEN: Soft, nontender, and nondistended. Positive bowel sounds. No evidence of hepatosplenomegaly. Currently, no rebound or guarding noted. EXTREMITIES: Negative for clubbing, cyanosis, or edema. RECTAL/GENITAL: Not performed. NEUROLOGIC: Cranial nerves II through XII are grossly intact without focal deficits. Assessment/Plan Assessment/Plan ASSESSMENT: This is a 70-year-old female. 1. Altered mental status. 2. Acute left cerebrovascular accident. 3. Hypertensive emergency 4. Asthma. TREATMENT: 1. Altered mental status, this may be secondary to acute cerebrovascular accident. 2. Acute left cerebrovascular accident. A Neurology consultation has been obtained. The patient has been started empirically on aspirin. Follow recommendations of Neurology. 3. Hypertension. The patient has hypertensive emergency by criteria admission blood pressure. The patient has been started on hydralazine p.r.n. The patient has been started on carvedilol 3.125 mg twice daily. Follow recommendations of Cardiology. 4. Asthma. 5. Bilateral pneumonia by chest x-ray. The patient has been started empirically on ceftriaxone and azithromycin. A Pulmonary consultation has been obtained with Dr. Mcmillna. Lennox Loco MD Nov 18, 2020 18:38
[2020-11-18 20:00] VITALS: BP 140/90
--- NOTE | 2020-11-18 20:04 | NUR ---
NURSE HAND-OFF REPORT: Important Events on Shift:[] dr. downey ordered insulin adn accuchecks Patient Status: [] full code Diet: [] cardiac Pending Orders: [] Pending Results/Labs:[] Pending MD notification:[] Latest Vital Signs: Temperature 96.2 , Pulse 92 , B/P 187 /88 , Respiratory Rate 18 , O2 SAT 98 , Room Air, O2 Flow Rate . Vital Sign Comment: [] EKG Rhythm: Sinus Rhythm Rhythm change?: N MD Notified?: - MD Response: Latest Chakraborty Fall Score: 85 Fall Risk: High Risk Safety Measures: Call light Within Reach, Bed Alarm Zone 1, Side Rails Side Rails x2, Bed position Low and Locked. Fall Precautions: Yellow Socks Yellow Gown Door Sign Patient Fall Education Report given to [].Dannielle MARTINEZ
--- NOTE | 2020-11-18 21:30 | NUR ---
NURSE NOTES: Received report from JUAN Spicer. Patient is awake on bed, alert and oriented x 2-3. Cardica monitor is in place, shows sinu rhythm with no chest pain reported. On cardiac diet, instructed and amenable. IV site is on left hand g-22 saline locked that is patent and intact. Safety measures are in place, bed in lowest and locked position, side rails up x 2, call light button and bedside table within reach, instructed to call for any assistance needed. Will continue plan of care.
[2020-11-18] MEDS: Atorvastatin 20mg tab ORAL SCH (21:45)
[2020-11-18] MEDS: Carvedilol 6.25mg Tab ORAL SCH (21:45)
[2020-11-19] VITALS: BP 147/70
[2020-11-19 04:00] VITALS: BP 141/72
[2020-11-19 04:27] LABS: BASOPHILS % (AUTO) 1.1 % (0.0-2.0); EOSINOPHILS % (AUTO) 5.2 % (0.0-3.0); HEMATOCRIT 37.8 % (37.0-47.0); HEMOGLOBIN 12.8 G/DL (12.0-16.0); LYMPHOCYTES % (AUTO) 24.8 % (20.0-45.0); MEAN CORPUSCULAR VOLUME 87 FL (80-99); MONOCYTES % (AUTO) 9.8 % (1.0-10.0); NEUTROPHILS % (AUTO) 59.2 % (45.0-75.0); PLATELET COUNT 181 K/UL (150-450); RED BLOOD COUNT 4.35 M/UL (4.20-5.40); RED CELL DISTRIBUTION WIDTH 15.5 % (11.6-14.8); WHITE BLOOD COUNT 7.5 K/UL (4.8-10.8)
[2020-11-19 04:46] LABS: ANION GAP 7 mmol/L (5-15); BLOOD UREA NITROGEN 14 mg/dL (7-18); CALCIUM 8.1 MG/DL (8.5-10.1); CARBON DIOXIDE 26 MMOL/L (21-32); CHLORIDE 103 MMOL/L (98-107); CREATININE 0.8 MG/DL (0.55-1.30); SODIUM 136 MMOL/L (136-145)
[2020-11-19] MEDS: NovoLOG Insulin Flexpen SUBQ SCH ×4 (05:42→20:12)
--- NOTE | 2020-11-19 07:15 | NUR ---
NURSE HAND-OFF REPORT: Important Events on Shift: Patient has been resting well comfortably the whole shift with no desaturation noted Patient Status: Patient is awake on bed in stable condition. Plan of care endorsed Diet: Cardiac diet Pending Orders: none Pending Results/Labs:AM lab result Pending MD notification:none Latest Vital Signs: Temperature 98.2 , Pulse 87 , B/P 141 /72 , Respiratory Rate 20 , O2 SAT 98 , Room Air, O2 Flow Rate . Vital Sign Comment: stable EKG Rhythm: Sinus Rhythm Rhythm change?: N MD Notified?: - MD Response: Latest Chakraborty Fall Score: 85 Fall Risk: High Risk Safety Measures: Call light Within Reach, Bed Alarm Zone 1, Side Rails Side Rails x2, Bed position Low and Locked. Fall Precautions: Yellow Socks Yellow Gown Door Sign Patient Fall Education Report given to JUAN Greene.
--- NOTE | 2020-11-19 07:43 | NUR ---
NURSE NOTES: Received report from Renu/RN. Pt in bed, sleeping, in semi fowlers position. On room air, no distress or SOB noted. IV on right hand 22G, SL, patent and clean. Bed in the lowest position and locked, call light within reach, encouraged to use when needed. Side rails up X3. Will continue plan of care.
[2020-11-19 08:00] VITALS: BP 179/79
[2020-11-19] MEDS: Carvedilol 6.25mg Tab ORAL SCH ×2 (09:20→20:12)
[2020-11-19] MEDS: Enoxaparin 40mg Inj SUBQ SCH (09:20)
[2020-11-19] MEDS: Aspirin Baby 81mg ORAL SCH (09:20)
[2020-11-19] MEDS: cefTRIAXone 1 GM in NS 55 ML IVPB SCH (09:21)
--- NOTE | 2020-11-19 09:25 | NUR ---
CASE MANAGEMENT:REVIEW 11/19/20 SI: ACUTE TOXIC METABOLIC ENCEPHALOPATHY PNEUMONIA. POSSIBLE CVA 97.5 81 20 179/79 98% ON RA GLUCOSE+171 IS: IV AZITHROMYCIN QD IV ROCEPHIN Q24 ASA PO QD COREG PO Q12 SS INSULIN AC+HS LOVENOX SQ QD LIPITOR PO QHS : TELEMETRY STATUS DCP: FROM HOME
[2020-11-19] MEDS: Azithromycin 500 MG in NS 275 ML IV SCH (09:59)
--- NOTE | 2020-11-19 11:07 | Pulmonology Progress Note ---
Subjective ROS Limited/Unobtainable: Yes Allergies: Coded Allergies: EGG (Verified Allergy, Unknown, 11/16/20) Shrimp (Verified Allergy, Unknown, 11/16/20) Subjective on tele denies CP SOB remains on RA, sat stable awaiting COVID 19 by PCR result, in isolation for now Objective Last 24 Hour Vital Signs Date Time Temp Pulse Resp B/P (MAP) Pulse Ox O2 Delivery O2 Flow Rate FiO2 11/19/20 09:20 81 179/79 11/19/20 09:00 Room Air 11/19/20 08:00 97.5 81 20 179/79 (112) 98 11/19/20 08:00 86 11/19/20 04:00 88 11/19/20 04:00 98.2 87 20 141/72 (95) 98 11/19/20 00:00 98.0 92 20 147/70 (95) 99 11/18/20 23:39 98 11/18/20 21:45 94 152/75 11/18/20 21:00 Room Air 11/18/20 20:00 96.2 92 18 140/90 (107) 98 11/18/20 20:00 70 11/18/20 19:42 187/88 11/18/20 16:00 70 11/18/20 16:00 96.2 92 18 140/90 (107) 98 11/18/20 14:09 188/86 11/18/20 12:00 69 11/18/20 12:00 96.9 69 18 162/81 (108) 97 Intake and Output 11/18/20 11/19/20 19:00 07:00 Intake Total 270 ml 300 ml Balance 270 ml 300 ml Intake Oral 270 ml 300 ml # Voids 2 Objective General Appearance: no apparent distress, confused, awake, responsive, but unable to provide answers as being asked Lines, tubes and drains: peripheral HEENT: normocephalic, atraumatic, anicteric, mucous membranes moist , apparent R sided visual deficit Neck: supple Respiratory/Chest: lungs clear - with moderate air exchange , no accessory muscle use Cardiovascular/Chest: normal rate, regular rhythm Abdomen: normal bowel sounds, non tender, soft Skin Exam: warm/dry Neurologic: responsive, unable to squeeze my hands pronator drift not seen , unable to access gait, Microbiology Date/Time Source Procedure Growth Status 11/16/20 11:20 Nasopharynx SARS-CoV-2 RdRp Gene Assay - Final Complete 11/16/20 11:20 Blood Blood Culture - Preliminary NO GROWTH AFTER 48 HOURS Resulted 11/16/20 11:05 Blood Blood Culture - Preliminary NO GROWTH AFTER 48 HOURS Resulted Laboratory Tests 11/19/20 04:15: White Blood Count 7.5, Red Blood Count 4.35, Hemoglobin 12.8, Hematocrit 37.8, Mean Corpuscular Volume 87, Mean Corpuscular Hemoglobin 29.4, Mean Corpuscular Hemoglobin Concent 33.8, Red Cell Distribution Width 15.5H, Platelet Count 181, Mean Platelet Volume 9.6, Neutrophils (%) (Auto) 59.2, Lymphocytes (%) (Auto) 24.8, Monocytes (%) (Auto) 9.8, Eosinophils (%) (Auto) 5.2H, Basophils (%) (Auto) 1.1, Sodium Level 136, Potassium Level 4.0, Chloride Level 103, Carbon Dioxide Level 26, Anion Gap 7, Blood Urea Nitrogen 14, Creatinine 0.8, Estimat Glomerular Filtration Rate > 60, Glucose Level 171H, Calcium Level 8.1L 11/19/20 05:38: POC Whole Blood Glucose [Pending] Current Medications Medications (Trade) Dose Ordered Sig/Jaquan Route PRN Reason Start Time Stop Time Status Last Admin Dose Admin Albuterol Sulfate (Proventil MDI) 2 puff Q4H PRN INH Shortness of Breath 11/16/20 17:15 02/14/21 17:14 Aspirin (ASA) 81 mg DAILY ORAL 11/17/20 09:00 01/01/21 08:59 11/19/20 09:20 Atorvastatin Calcium (Lipitor) 40 mg BEDTIME ORAL 11/17/20 21:00 02/15/21 20:59 11/18/20 21:45 Azithromycin 500 mg/Sodium Chloride 275 ml @ 275 mls/hr DAILY IV 11/17/20 09:00 11/22/20 08:59 11/19/20 09:59 Barium Sulfate (Varibar [place]) 250 ml NOW PRN MC RAD 11/18/20 14:00 11/21/20 13:50 Barium Sulfate (Varibar [place]) 240 ml NOW PRN MC RAD 11/18/20 14:00 11/21/20 13:50 Barium Sulfate (Varibar Pudding) 230 ml NOW PRN MC RAD 11/18/20 14:00 11/21/20 13:50 Barium Sulfate (Varibar Thin Liquid powder) 148 gm NOW PRN MC RAD 11/18/20 14:00 11/21/20 13:50 Carvedilol (Coreg) 6.25 mg EVERY 12 HOURS ORAL 11/18/20 21:00 12/16/20 20:59 11/19/20 09:20 Ceftriaxone Sodium 1 gm/ Sodium Chloride 55 ml @ 110 mls/hr DAILY IVPB 11/17/20 09:00 11/24/20 08:59 11/19/20 09:21 Dextrose (Dextrose 50%) 25 ml Q30M PRN IV Hypoglycemia 11/18/20 15:45 02/16/21 15:44 Dextrose (Dextrose 50%) 50 ml Q30M PRN IV Hypoglycemia 11/18/20 15:45 02/16/21 15:44 Enoxaparin Sodium (Lovenox) 40 mg DAILY SUBQ 11/18/20 09:00 02/16/21 08:59 11/19/20 09:20 Hydralazine HCl (Apresoline) 50 mg Q6HR PRN ORAL SBP >160 11/16/20 20:45 02/14/21 20:44 11/18/20 19:42 Insulin Aspart (NovoLOG) BEFORE MEALS AND HS SUBQ 11/18/20 17:00 02/16/21 16:59 11/19/20 05:42 Assessment/Plan Assessment/Plan ASSESSMENT Pneumonia Suspected COVID-19/PUI ( close contact with daughter, diagnosed positive ) Acute toxic metabolic encephalopathy ( possibly due to COVID vs neurological condition) Abnormal MRI -likely CVA, 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 HTN emergency hx of asthma Diabetes PLAN OF CARE tele isolation room , monitored floor O2 titrate to keep sat > 92% HFA get CAMRYN COV2 by PCR given close contact with positive patient empiric abx hold on steroids, given pulse ox stable on RA a/coagulation with LMWH fup inflam markers HFA no evidence of asthma exacerbation fup imaging neuro eval appreciated MRI/MRA head and neck pending ASA lipid panel -elevated TC and LDL -> start statin carotid duplex -> No hemodynamically significant stenosis in either ICA. ECHO with pEF venous Duplex BLE NGT neck MRA. head MRI ->No gross evidence of significant extracranial cerebrovascular disease. No evidence of significant proximal cerebrovascular insufficiency BP management -BB and Hydralazine prn for spikes check HgA1c given hyperglycemia 7.4 BS management with SSI swallow eval PT fall precautions case discussed and evaluated by supervising physician Abril Adler NP Nov 19, 2020 11:07
--- NOTE | 2020-11-19 11:20 | NUR ---
PT NOTE Received MD order for PT evaluation. PT intervention deferred due to elevated BP 177/93. Kacey MARTINEZ aware, will re-attempt later as schedule permits.
[2020-11-19] MEDS: HydrALAZINE 50mg tab ORAL PRN ×2 (11:33→23:52)
[2020-11-19 12:00] VITALS: BP 166/86
--- NOTE | 2020-11-19 13:33 | Neurology Progress Note ---
Interim History Interim History ROS Limited/Unobtainable: No Complaints: pt bp elevated eating well Review of Systems All Systems: reviewed and negative except above Objective Physical Exam Last Vital Signs Date Time Temp Pulse Resp B/P (MAP) Pulse Ox O2 Delivery O2 Flow Rate FiO2 11/19/20 12:00 71 11/19/20 12:00 97.7 20 166/86 (112) 98 11/19/20 09:00 Room Air Laboratory Tests Test 11/19/20 04:15 11/19/20 05:38 White Blood Count 7.5 K/UL (4.8-10.8) Red Blood Count 4.35 M/UL (4.20-5.40) Hemoglobin 12.8 G/DL (12.0-16.0) Hematocrit 37.8 % (37.0-47.0) Mean Corpuscular Volume 87 FL (80-99) Mean Corpuscular Hemoglobin 29.4 PG (27.0-31.0) Mean Corpuscular Hemoglobin Concent 33.8 G/DL (32.0-36.0) Red Cell Distribution Width 15.5 % (11.6-14.8) H Platelet Count 181 K/UL (150-450) Mean Platelet Volume 9.6 FL (6.5-10.1) Neutrophils (%) (Auto) 59.2 % (45.0-75.0) Lymphocytes (%) (Auto) 24.8 % (20.0-45.0) Monocytes (%) (Auto) 9.8 % (1.0-10.0) Eosinophils (%) (Auto) 5.2 % (0.0-3.0) H Basophils (%) (Auto) 1.1 % (0.0-2.0) Sodium Level 136 MMOL/L (136-145) Potassium Level 4.0 MMOL/L (3.5-5.1) Chloride Level 103 MMOL/L (98-107) Carbon Dioxide Level 26 MMOL/L (21-32) Anion Gap 7 mmol/L (5-15) Blood Urea Nitrogen 14 mg/dL (7-18) Creatinine 0.8 MG/DL (0.55-1.30) Estimat Glomerular Filtration Rate > 60 mL/min (>60) Glucose Level 171 MG/DL (74-106) H Calcium Level 8.1 MG/DL (8.5-10.1) L POC Whole Blood Glucose Pending Neurologic Exam Objective Physical Exam: VS reviewed General: Patient is lying in bed no acute distress Neuro: Awake and Alert Oriented x4, has insight to situation Comprehension receptive phasia not able to answer in text to what is being asked.Language parameters intact. Cranial nerves II-XII are tested Pupils are round equal and sluggish. However right sided visual deficit noted. Tongue is midline. Motor: No involuntary movements. Bilateral extremity strength is equal 3/5 bilateral lower extremity 3/5. Sensation intact to light and touch. Coordination and gait intact. Impression/Recommendations Diagnostic Impression Assessment and Rec's 1. CVA, left temporal and occipital lobes with right sided visual depth field deficit and receptive aphasia --> MRI Brain and CT Head noted --> MRA Head and Neck reviewed as well --> continue ASA --> Order Fasting Lipids and consider statin after reviewing results --> have discussed with daughter Deanna regrading findings and results. 2. Hypertension --> Bp meds,monitor closely 3. Obesity. Thank you for allowing us to participate in the care of this patient c onsultation greatly appreciated. Discussed in detail with my supervising physician Dr. Burt Leo, who is in agreement with plan of care. The time of the note does not necessarily reflect the time the patient was seen. Carmen Melara NP Nov 19, 2020 13:33
--- NOTE | 2020-11-19 13:50 | NUR ---
PT NOTE Second attempt to see patient for PT evaluation, BP 176/90. PT evaluation deferred, Kacey RN notified, will follow up tomorrow.
[2020-11-19 14:04] LABS: CHOLESTEROL 151 MG/DL (< 200); HDL CHOLESTEROL 42 MG/DL (40-60); TRIGLYCERIDES 52 MG/DL (30-150)
--- NOTE | 2020-11-19 14:40 | Cardiology Report ---
APPROVED REPORT EXAM: Two-dimensional and M-mode echocardiogram with Doppler and color Doppler. INDICATION Altered Loc M-Mode DIMENSIONS IVSd1.0 (0.7-1.1cm)Left Atrium (MM)4.7 (1.6-4.0cm) LVDd6.0 (3.5-5.6cm)Aortic Root3.2 (2.0-3.7cm) PWd1.0 (0.7-1.1cm)Aortic Cusp Exc.2.0 (1.5-2.0cm) IVSs1.8 cmEPSS0.5 (>1.0cm) LVDs3.8 (2.5-4.0cm) PWs1.8 cm Other Information Technically limited study due to body habitus. <Conclusion> Normal left ventricular chamber size, systolic function and wall motion to extent visualized. Left ventricular ejection fraction estimated to be 60-65 %. Study quality precludes accurate assessment of regional wall motion. Mild left ventricular hypertrophy. No evidence of pericardial effusion. All other cardiac chamber sizes are within normal limits. Focal aortic valve sclerosis with adequate cusp excursion. Thickened mitral valve leaflets with normal excursion. Mitral annulus and aortic root calcification. Normal tricuspid valve structure. IVC at normal size with slightly physiologic collapse. A color flow and spectral Doppler study was performed and revealed: Trace aortic regurgitation. Trace mitral regurgitation. Mitral diastolic velocities suggest reduced left ventricular relaxation c/w mild LV diastolic dysfunction (Grade I ). Trace tricuspid regurgitation. Tricuspid systolic velocities suggests peak right ventricular systolic pressure of 23 mmHg.
[2020-11-19 16:00] VITALS: BP 142/80
--- NOTE | 2020-11-19 17:25 | NUR ---
Speech Pathology Note (Bedside Dysphagia Evaluation) Admitted: 11/16/2020 C/C: AMS in setting of Hypertension MRI brain 11/16/2020: Large area of restricted diffusion involving left temporal and occipital lobe MRA Head 11/17/2020: no stenosis, aneurysm Carotid: negative TTE: grossly unremarkable Brief Note: Ms. Cheatham is a right handed Gambian primary speaking female BIB her family for AMS on 11/16/2020. She was found to be hypertensive on arrival 231/103. She was found to have abnormal CT head additionally. Onset of stroke was unclear, for further medical or procedural intervention. The neurology consulted and MRI of brain was completed and noted as the above. The MRA, carotid, TTE were all completed and findings were essentially unremarkable. I reviewed the vital signs, labs and available imaging reports. I discussed with RN prior to evaluation: Findings of Speech/Language/Cognitive/Voice: Pt stated that she could understand a little bit of [place], but primarily spoke Gambian. My Gambian is limited so asked her some questions in basic Gambian and basic [place]. When I asked her what her name was, she began to say her kids name. When I asked her if she knew where she was she started randomly speaking without making much sense. She followed some simple commands but accuracy was inconsistent. She appeared to be presents with more sensory motor cortical aphasia, with significant receptive language deficits Findings of Swallow: Pt's oral peripheral and oropharyngeal and laryngeal function is intact based on her speech and phonation. Oral cavity is clear. No teeth. Unable to determine if she uses dentures to eat or not. She appeared to complain nausea and heart burn. She agreed to take drinks. She was able to swallow thin liquid 118cc without dysphagia. s.s of aspiration or vomit. Interpretation 1. 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 Functional swallow Plan: 1. Supportive speech and language therapy -[facility] v.s Home health 2. Mechanical soft diet with thin liquid -Investigate her previous diet and dental status Zoran Adams
--- NOTE | 2020-11-19 17:56 | Internal Med Progress Note ---
Subjective Date of Service: Nov 19, 2020 Physician Name Lennox Loco Attending Physician Titi White MD Current Medications Medications (Trade) Dose Ordered Sig/Jaquan Route PRN Reason Start Time Stop Time Status Last Admin Dose Admin Albuterol Sulfate (Proventil MDI) 2 puff Q4H PRN INH Shortness of Breath 11/16/20 17:15 02/14/21 17:14 Aspirin (ASA) 81 mg DAILY ORAL 11/17/20 09:00 01/01/21 08:59 11/19/20 09:20 Atorvastatin Calcium (Lipitor) 40 mg BEDTIME ORAL 11/17/20 21:00 02/15/21 20:59 11/18/20 21:45 Azithromycin 500 mg/Sodium Chloride 275 ml @ 275 mls/hr DAILY IV 11/17/20 09:00 11/22/20 08:59 11/19/20 09:59 Barium Sulfate (Varibar Honey) 250 ml NOW PRN MC RAD 11/18/20 14:00 11/21/20 13:50 Barium Sulfate (Varibar L[place]hanna) 240 ml NOW PRN MC RAD 11/18/20 14:00 11/21/20 13:50 Barium Sulfate (Varibar Pudding) 230 ml NOW PRN MC RAD 11/18/20 14:00 11/21/20 13:50 Barium Sulfate (Varibar Thin Liquid powder) 148 gm NOW PRN MC RAD 11/18/20 14:00 11/21/20 13:50 Carvedilol (Coreg) 6.25 mg EVERY 12 HOURS ORAL 11/18/20 21:00 12/16/20 20:59 11/19/20 09:20 Ceftriaxone Sodium 1 gm/ Sodium Chloride 55 ml @ 110 mls/hr DAILY IVPB 11/17/20 09:00 11/24/20 08:59 11/19/20 09:21 Dextrose (Dextrose 50%) 25 ml Q30M PRN IV Hypoglycemia 11/18/20 15:45 02/16/21 15:44 Dextrose (Dextrose 50%) 50 ml Q30M PRN IV Hypoglycemia 11/18/20 15:45 02/16/21 15:44 Enoxaparin Sodium (Lovenox) 40 mg DAILY SUBQ 11/18/20 09:00 02/16/21 08:59 11/19/20 09:20 Hydralazine HCl (Apresoline) 50 mg Q6HR PRN ORAL SBP >160 11/16/20 20:45 02/14/21 20:44 11/19/20 11:33 Insulin Aspart (NovoLOG) BEFORE MEALS AND HS SUBQ 11/19/20 11:30 02/17/21 11:29 11/19/20 16:39 Allergies: Coded Allergies: EGG (Verified Allergy, Unknown, 11/16/20) Shrimp (Verified Allergy, Unknown, 11/16/20) ROS Limited/Unobtainable: No Constitutional: Reports: no symptoms HEENT: Reports: no symptoms Cardiovascular: Reports: no symptoms Respiratory: Reports: no symptoms Gastrointestinal/Abdominal: Reports: no symptoms Genitourinary: Reports: no symptoms Neurologic/Psychiatric: Reports: no symptoms Subjective 70 YO F admitted with altered mental status. Now acute cerebral vascular accident and pneumonia. Cover for Int Med-Dr White. Objective Last Vital Signs Date Time Temp Pulse Resp B/P (MAP) Pulse Ox O2 Delivery O2 Flow Rate FiO2 11/19/20 16:00 97.2 72 20 142/80 (100) 99 11/19/20 09:00 Room Air Laboratory Tests Test 11/19/20 04:15 11/19/20 05:38 11/19/20 16:36 White Blood Count 7.5 K/UL (4.8-10.8) Red Blood Count 4.35 M/UL (4.20-5.40) Hemoglobin 12.8 G/DL (12.0-16.0) Hematocrit 37.8 % (37.0-47.0) Mean Corpuscular Volume 87 FL (80-99) Mean Corpuscular Hemoglobin 29.4 PG (27.0-31.0) Mean Corpuscular Hemoglobin Concent 33.8 G/DL (32.0-36.0) Red Cell Distribution Width 15.5 % (11.6-14.8) H Platelet Count 181 K/UL (150-450) Mean Platelet Volume 9.6 FL (6.5-10.1) Neutrophils (%) (Auto) 59.2 % (45.0-75.0) Lymphocytes (%) (Auto) 24.8 % (20.0-45.0) Monocytes (%) (Auto) 9.8 % (1.0-10.0) Eosinophils (%) (Auto) 5.2 % (0.0-3.0) H Basophils (%) (Auto) 1.1 % (0.0-2.0) Sodium Level 136 MMOL/L (136-145) Potassium Level 4.0 MMOL/L (3.5-5.1) Chloride Level 103 MMOL/L (98-107) Carbon Dioxide Level 26 MMOL/L (21-32) Anion Gap 7 mmol/L (5-15) Blood Urea Nitrogen 14 mg/dL (7-18) Creatinine 0.8 MG/DL (0.55-1.30) Estimat Glomerular Filtration Rate > 60 mL/min (>60) Glucose Level 171 MG/DL (74-106) H Calcium Level 8.1 MG/DL (8.5-10.1) L Triglycerides Level 52 MG/DL (30-150) Cholesterol Level 151 MG/DL (< 200) LDL Cholesterol 98 mg/dL (<100) HDL Cholesterol 42 MG/DL (40-60) Cholesterol/HDL Ratio 3.6 (3.3-4.4) POC Whole Blood Glucose Pending 149 MG/DL (74-106) H Intake and Output 11/18/20 11/19/20 19:00 07:00 Intake Total 270 ml 300 ml Balance 270 ml 300 ml Intake Oral 270 ml 300 ml # Voids 2 Objective PHYSICAL EXAMINATION: GENERAL: The patient is well-developed, well-nourished obese female, in no apparent distress. HEENT: Eyes, pupils are equal and responsive to light and accommodation. Extraocular movements are intact. NECK: Supple without lymphadenopathy. CHEST: Lungs are clear to auscultation bilaterally without wheezes or rales. CARDIOVASCULAR: Regular rhythm and rate. S1 and S2 normal without murmurs, rubs, or gallops. ABDOMEN: Soft, nontender, and nondistended. Positive bowel sounds. No evidence of hepatosplenomegaly. Currently, no rebound or guarding noted. EXTREMITIES: Negative for clubbing, cyanosis, or edema. RECTAL/GENITAL: Not performed. NEUROLOGIC: Cranial nerves II through XII are grossly intact without focal deficits. Assessment/Plan Status Narrative Patient : LETICIA BANEGAS Referring Physician: Geraldine Pelayo M.D. ID Number:[id number] Service Date: 11/16/20 : 1950 Report Date: 11/16/20 Gender: F Accession No.: [id number] Location: [facility] [place] Procedure: MRI Brain no Contrast MRI HEAD Without Contrast HISTORY: Altered mental status COMPARISON: Head CT 16 November 2020 TECHNIQUE: Multiplanar and multiecho MRI images of the brain obtained without contrast FINDINGS: No abnormal intra- or extra-axial collections or parenchymal lesions are seen. There are involutional changes with prominence of the sulci, basal cisterns and ventricles. Scattered white matter hyperintensities are present, likely from small vessel disease. Large area of restricted diffusion involving the left temporal lobe and occipital lobe corresponding to a hypoattenuation the recent head CT without hemorrhagic changes.. This area demonstrates edema and sulcal thickening. IMPRESSION: 1. Restricted diffusion from acute or subacute ischemia involving the left temporal and occipital lobes. No midline shift appreciated. Age- related changes are present. No acute hemorrhage. 2. Involutional changes with small vessel disease. Assessment/Plan ASSESSMENT: This is a 70-year-old female. 1. Altered mental status. 2. Acute left cerebrovascular accident. 3. Hypertensive emergency 4. Asthma. TREATMENT: 1. Altered mental status, this may be secondary to acute cerebrovascular accident. 2. Acute left cerebrovascular accident. A Neurology consultation has been obtained with Dr Leo. The patient has been started empirically on aspirin. Follow recommendations of Neurology. PT/OT eval 3. Hypertension. The patient has hypertensive emergency by criteria admission blood pressure. The patient has been started on hydralazine p.r.n. The patient has been started on carvedilol 3.125 mg twice daily. Follow recommendations of Cardiology. 4. Asthma. 5. Bilateral pneumonia by chest x-ray. The patient has been started empirically on ceftriaxone and azithromycin. A Pulmonary consultation has been obtained with Dr. Mcmillan. 6. Discharge planning: Acute rehab Lennox Loco MD Nov 19, 2020 17:56
--- NOTE | 2020-11-19 19:03 | NUR ---
NURSE HAND-OFF REPORT: Important Events on Shift: Patient Status: Stable Diet: Cardiac Pending Orders: Pending Results/Labs: Pending MD notification: Latest Vital Signs: Temperature 97.2 , Pulse 68 , B/P 142 /80 , Respiratory Rate 20 , O2 SAT 99 , Room Air, O2 Flow Rate . Vital Sign Comment: stable EKG Rhythm: Sinus Rhythm Rhythm change?: N MD Notified?: - MD Response: Latest Chakraborty Fall Score: 85 Fall Risk: High Risk Safety Measures: Call light Within Reach, Bed Alarm Zone 1, Side Rails Side Rails x2, Bed position Low and Locked. Fall Precautions: Yellow Socks Yellow Gown Door Sign Patient Fall Education Report given to Renu/JUAN.
--- NOTE | 2020-11-19 19:20 | NUR ---
NURSE NOTES: Report received from JUAN Greene. Patient is awake on bed, alert and oriented x 1-2. alarm security or surveillance monitor is in place, shows sinus rhythm with no chest pain reported. On room air, saturating 94-95%. On cardiac diet, instructed and amenable. IV site is on left hand g-22 saline locked that is patent and intact. Patient can ambulate with minimal assistance needed. Safety measures are in place, bed in lowest and locked position, side rails up x 2, call light button and bedside table within reach, instructed to call for any assistance needed. Will continue plan of care.
[2020-11-19 20:00] VITALS: BP 151/87
[2020-11-19] MEDS: Atorvastatin 20mg tab ORAL SCH (20:12)
--- NOTE | 2020-11-19 22:55 | NUR ---
NURSE NOTES: Patient is sleeping at this time, saturating 97% on room air. Will continue plan of care.
[2020-11-20] VITALS (8 sets, daily range): BP systolic 148–187; BP diastolic 67–83
[2020-11-20] MEDS: NovoLOG Insulin Flexpen SUBQ SCH ×4 (05:17→21:00)
[2020-11-20 06:04] LABS: BASOPHILS % (AUTO) 1.3 % (0.0-2.0); EOSINOPHILS % (AUTO) 7.1 % (0.0-3.0); HEMATOCRIT 41.4 % (37.0-47.0); HEMOGLOBIN 13.2 G/DL (12.0-16.0); LYMPHOCYTES % (AUTO) 14.8 % (20.0-45.0); MEAN CORPUSCULAR VOLUME 88 FL (80-99); MONOCYTES % (AUTO) 10.3 % (1.0-10.0); NEUTROPHILS % (AUTO) 66.5 % (45.0-75.0); PLATELET COUNT 202 K/UL (150-450); RED BLOOD COUNT 4.72 M/UL (4.20-5.40); RED CELL DISTRIBUTION WIDTH 14.5 % (11.6-14.8); WHITE BLOOD COUNT 6.8 K/UL (4.8-10.8)
[2020-11-20] MEDS: HydrALAZINE 50mg tab ORAL PRN ×3 (06:29→23:57)
[2020-11-20 06:35] LABS: ANION GAP 9 mmol/L (5-15); BLOOD UREA NITROGEN 10 mg/dL (7-18); CARBON DIOXIDE 25 MMOL/L (21-32); CHLORIDE 103 MMOL/L (98-107); CREATININE 0.7 MG/DL (0.55-1.30); POTASSIUM 4.1 MMOL/L (3.5-5.1); SODIUM 137 MMOL/L (136-145)
--- NOTE | 2020-11-20 07:19 | NUR ---
NURSE HAND-OFF REPORT: Important Events on Shift: Patient has been saturating 95-98% on room air, no complaints of any pain or SOB the whole shift. Patient Status: Patient is awake on bed in stable codnition. Plan of care endorsed. Diet: CCHO(Medium) Pending Orders: none Pending Results/Labs:AM lab result Pending MD notification:none Latest Vital Signs: Temperature 98.6 , Pulse 82 , B/P 161 /78 , Respiratory Rate 21 , O2 SAT 94 , Room Air, O2 Flow Rate . Vital Sign Comment: stable EKG Rhythm: Sinus Rhythm Rhythm change?: N MD Notified?: - MD Response: Latest Chakraborty Fall Score: 75 Fall Risk: High Risk Safety Measures: Call light Within Reach, Bed Alarm Zone 1, Side Rails Side Rails x2, Bed position Low and Locked. Fall Precautions: Yellow Socks Yellow Gown Door Sign Patient Fall Education Report given to JUAN Erazo.
--- NOTE | 2020-11-20 07:23 | NUR ---
NURSE NOTES: Received report from Renu/RN. Pt in bed, sleeping, in semi fowlers position. On room air, no distress or SOB noted. IV on right hand 22G, SL, patent and clean. Patient continuously having high blood pressure, hydralazine PRN given during institutional nutrition consultant. Bed in the lowest position and locked, call light within reach, encouraged to use when needed. Side rails up X3. Will continue plan of care.
--- NOTE | 2020-11-20 08:34 | NUR ---
CASE MANAGEMENT:REVIEW 11/20/20 SI: ACUTE LT CVA. BILATERAL PNEUMONIA 98.6 82 21 161/78 94% ON RA GLUCOSE+129 IS: IV AZITHROMYCIN QD IV ROCEPHIN Q24 ASA PO QD COREG PO Q12 SS INSULIN AC+HS LOVENOX SQ QD LIPITOR PO QHS : TELEMETRY STATUS DCP: FROM HOME PLAN: PATIENT HAS BEEN HERE FOR 4 DAYS AND [facility] HAS NOT MADE ANY ATTEMPT TO CONTACT US OR ARRANGE FOR THEIR PATIENT TO BE TRANSFERRED TO A [facility] FACILITY WE HAVE TRIED MULTIPLE TIMES TO REACH OUT TO [facility] BY PHONE AND HAVE BEEN PLACED ON HOLD FOR 1 HOUR OR MORE CLINICALS AND REVIEWS HAVE BEEN FAXED DAILY WAITING FOR 4 DAYS FOR A [facility] ESTHETIC DERMATOLOGIST TO CALL US @ [phone]
[2020-11-20] MEDS: Aspirin Baby 81mg ORAL SCH (09:23)
[2020-11-20] MEDS: Carvedilol 6.25mg Tab ORAL SCH (09:23)
[2020-11-20] MEDS: Enoxaparin 40mg Inj SUBQ SCH (09:24)
[2020-11-20] MEDS: cefTRIAXone 1 GM in NS 55 ML IVPB SCH (09:24)
[2020-11-20] MEDS: Azithromycin 500 MG in NS 275 ML IV SCH (09:38)
--- NOTE | 2020-11-20 10:16 | NUR ---
PT NOTE PT intervention deferred due to elevated BP 171/85. Kacey MARTINEZ aware, will re-attempt later as schedule permits.
--- NOTE | 2020-11-20 10:29 | Pulmonology Progress Note ---
Subjective ROS Limited/Unobtainable: No Allergies: Coded Allergies: EGG (Verified Allergy, Unknown, 11/16/20) Shrimp (Verified Allergy, Unknown, 11/16/20) All Systems: reviewed and negative except above Subjective on tele denies CP SOB remains on RA, sat stable awaiting COVID 19 by PCR result, in isolation for now BP elevated Objective Last 24 Hour Vital Signs Date Time Temp Pulse Resp B/P (MAP) Pulse Ox O2 Delivery O2 Flow Rate FiO2 11/20/20 10:18 78 159/76 (103) 11/20/20 09:23 94 184/78 11/20/20 09:00 Room Air 11/20/20 08:00 79 11/20/20 08:00 97.8 94 20 184/78 (113) 98 11/20/20 06:29 161/78 11/20/20 04:32 98.6 82 21 161/78 (105) 94 11/20/20 03:13 76 11/20/20 00:00 98.6 88 20 187/76 (113) 95 11/19/20 23:52 187/90 11/19/20 23:18 59 11/19/20 21:00 Room Air 11/19/20 20:15 86 11/19/20 20:12 68 142/80 11/19/20 20:00 98.5 89 21 151/87 (108) 94 11/19/20 16:00 68 11/19/20 16:00 97.2 72 20 142/80 (100) 99 11/19/20 12:00 71 11/19/20 12:00 97.7 72 20 166/86 (112) 98 11/19/20 11:33 172/96 Intake and Output 11/19/20 11/20/20 19:00 07:00 Intake Total 400 ml 600 ml Balance 400 ml 600 ml Intake Oral 400 ml 600 ml # Voids 3 3 Objective General Appearance: no apparent distress, confused, awake, responsive, but unable to provide answers as being asked Lines, tubes and drains: peripheral HEENT: normocephalic, atraumatic, anicteric, mucous membranes moist , apparent R sided visual deficit Neck: supple Respiratory/Chest: lungs clear - with moderate air exchange , no accessory muscle use Cardiovascular/Chest: normal rate, regular rhythm Abdomen: normal bowel sounds, non tender, soft Skin Exam: warm/dry Neurologic: responsive, unable to squeeze my hands pronator drift not seen , unable to access gait, Laboratory Tests 11/19/20 16:36: POC Whole Blood Glucose 149H 11/20/20 04:30: White Blood Count 6.8, Red Blood Count 4.72, Hemoglobin 13.2, Hematocrit 41.4, Mean Corpuscular Volume 88, Mean Corpuscular Hemoglobin 28.0, Mean Corpuscular Hemoglobin Concent 31.8L, Red Cell Distribution Width 14.5, Platelet Count 202, Mean Platelet Volume 8.6, Neutrophils (%) (Auto) 66.5, Lymphocytes (%) (Auto) 14.8L, Monocytes (%) (Auto) 10.3H, Eosinophils (%) (Auto) 7.1H, Basophils (%) (Auto) 1.3, Sodium Level 137, Potassium Level 4.1, Chloride Level 103, Carbon Dioxide Level 25, Anion Gap 9, Blood Urea Nitrogen 10, Creatinine 0.7, Estimat Glomerular Filtration Rate > 60, Glucose Level 129H, Calcium Level 9.0 11/20/20 05:15: POC Whole Blood Glucose 146H Current Medications Medications (Trade) Dose Ordered Sig/Jaquan Route PRN Reason Start Time Stop Time Status Last Admin Dose Admin Albuterol Sulfate (Proventil MDI) 2 puff Q4H PRN INH Shortness of Breath 11/16/20 17:15 02/14/21 17:14 Aspirin (ASA) 81 mg DAILY ORAL 11/17/20 09:00 01/01/21 08:59 11/20/20 09:23 Atorvastatin Calcium (Lipitor) 40 mg BEDTIME ORAL 11/17/20 21:00 02/15/21 20:59 11/19/20 20:12 Azithromycin 500 mg/Sodium Chloride 275 ml @ 275 mls/hr DAILY IV 11/17/20 09:00 11/22/20 08:59 11/20/20 09:38 Barium Sulfate (Varibar Honey) 250 ml NOW PRN MC RAD 11/18/20 14:00 11/21/20 13:50 Barium Sulfate (Varibar Rod[place]) 240 ml NOW PRN MC RAD 11/18/20 14:00 11/21/20 13:50 Barium Sulfate (Varibar Pudding) 230 ml NOW PRN MC RAD 11/18/20 14:00 11/21/20 13:50 Barium Sulfate (Varibar Thin Liquid powder) 148 gm NOW PRN MC RAD 11/18/20 14:00 11/21/20 13:50 Carvedilol (Coreg) 6.25 mg EVERY 12 HOURS ORAL 11/18/20 21:00 12/16/20 20:59 11/20/20 09:23 Ceftriaxone Sodium 1 gm/ Sodium Chloride 55 ml @ 110 mls/hr DAILY IVPB 11/17/20 09:00 11/24/20 08:59 11/20/20 09:24 Dextrose (Dextrose 50%) 25 ml Q30M PRN IV Hypoglycemia 11/18/20 15:45 02/16/21 15:44 Dextrose (Dextrose 50%) 50 ml Q30M PRN IV Hypoglycemia 11/18/20 15:45 02/16/21 15:44 Enoxaparin Sodium (Lovenox) 40 mg DAILY SUBQ 11/18/20 09:00 02/16/21 08:59 11/20/20 09:24 Hydralazine HCl (Apresoline) 50 mg Q6HR PRN ORAL SBP >160 11/16/20 20:45 02/14/21 20:44 11/20/20 06:29 Insulin Aspart (NovoLOG) BEFORE MEALS AND HS SUBQ 11/19/20 11:30 02/17/21 11:29 11/20/20 05:17 Assessment/Plan Assessment/Plan ASSESSMENT Pneumonia Suspected COVID-19/PUI ( close contact with daughter, diagnosed positive ) Acute toxic metabolic encephalopathy ( possibly due to COVID vs neurological condition) Abnormal MRI -likely CVA, 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 HTN emergency hx of asthma Diabetes PLAN OF CARE tele isolation room , monitored floor O2 titrate to keep sat > 92% HFA get CAMRYN COV2 by PCR given close contact with positive patient empiric abx hold on steroids, given pulse ox stable on RA a/coagulation with LMWH fup inflam markers HFA no evidence of asthma exacerbation fup imaging neuro eval appreciated MRI/MRA head and neck pending ASA lipid panel -elevated TC and LDL -> start statin carotid duplex -> No hemodynamically significant stenosis in either ICA. ECHO with pEF venous Duplex BLE NGT neck MRA. head MRI ->No gross evidence of significant extracranial cerebrovascular disease. No evidence of significant proximal cerebrovascular insufficiency BP management - changed to BB and CCB, Hydralazine prn check HgA1c given hyperglycemia -7.4 BS management with SSI swallow eval PT fall precautions case discussed and evaluated by supervising physician Abril Adler NP Nov 20, 2020 10:29
--- NOTE | 2020-11-20 11:25 | Internal Med Progress Note ---
Subjective Date of Service: Nov 20, 2020 Physician Name LocoLennox Attending Physician Titi White MD Current Medications Medications (Trade) Dose Ordered Sig/Jaquan Route PRN Reason Start Time Stop Time Status Last Admin Dose Admin Albuterol Sulfate (Proventil MDI) 2 puff Q4H PRN INH Shortness of Breath 11/16/20 17:15 02/14/21 17:14 Amlodipine Besylate (Norvasc) 5 mg DAILY ORAL 11/20/20 10:45 12/20/20 10:44 11/20/20 11:17 Aspirin (ASA) 81 mg DAILY ORAL 11/17/20 09:00 01/01/21 08:59 11/20/20 09:23 Atorvastatin Calcium (Lipitor) 40 mg BEDTIME ORAL 11/17/20 21:00 02/15/21 20:59 11/19/20 20:12 Azithromycin 500 mg/Sodium Chloride 275 ml @ 275 mls/hr DAILY IV 11/17/20 09:00 11/22/20 08:59 11/20/20 09:38 Barium Sulfate (Varibar Honey) 250 ml NOW PRN MC RAD 11/18/20 14:00 11/21/20 13:50 Barium Sulfate (Varibar [place]) 240 ml NOW PRN MC RAD 11/18/20 14:00 11/21/20 13:50 Barium Sulfate (Varibar Pudding) 230 ml NOW PRN MC RAD 11/18/20 14:00 11/21/20 13:50 Barium Sulfate (Varibar Thin Liquid powder) 148 gm NOW PRN MC RAD 11/18/20 14:00 11/21/20 13:50 Ceftriaxone Sodium 1 gm/ Sodium Chloride 55 ml @ 110 mls/hr DAILY IVPB 11/17/20 09:00 11/24/20 08:59 11/20/20 09:24 Dextrose (Dextrose 50%) 25 ml Q30M PRN IV Hypoglycemia 11/18/20 15:45 02/16/21 15:44 Dextrose (Dextrose 50%) 50 ml Q30M PRN IV Hypoglycemia 11/18/20 15:45 02/16/21 15:44 Enoxaparin Sodium (Lovenox) 40 mg DAILY SUBQ 11/18/20 09:00 02/16/21 08:59 11/20/20 09:24 Hydralazine HCl (Apresoline) 50 mg Q6HR PRN ORAL SBP >160 11/16/20 20:45 02/14/21 20:44 11/20/20 06:29 Insulin Aspart (NovoLOG) BEFORE MEALS AND HS SUBQ 11/19/20 11:30 02/17/21 11:29 11/20/20 05:17 Metoprolol Tartrate (Lopressor) 25 mg Q12HR ORAL 11/20/20 21:00 02/18/21 20:59 Allergies: Coded Allergies: EGG (Verified Allergy, Unknown, 11/16/20) Shrimp (Verified Allergy, Unknown, 11/16/20) ROS Limited/Unobtainable: No Constitutional: Reports: no symptoms HEENT: Reports: no symptoms Cardiovascular: Reports: no symptoms Respiratory: Reports: no symptoms Gastrointestinal/Abdominal: Reports: no symptoms Genitourinary: Reports: no symptoms Neurologic/Psychiatric: Reports: no symptoms Subjective 70 YO F admitted with altered mental status. Now acute cerebral vascular accident and pneumonia. Cover for Int Med-Dr White. Objective Last Vital Signs Date Time Temp Pulse Resp B/P (MAP) Pulse Ox O2 Delivery O2 Flow Rate FiO2 11/20/20 11:17 78 159/76 11/20/20 09:00 Room Air 11/20/20 08:00 97.8 20 98 Laboratory Tests Test 11/19/20 16:36 11/20/20 04:30 11/20/20 05:15 POC Whole Blood Glucose 149 MG/DL (74-106) H 146 MG/DL (74-106) H White Blood Count 6.8 K/UL (4.8-10.8) Red Blood Count 4.72 M/UL (4.20-5.40) Hemoglobin 13.2 G/DL (12.0-16.0) Hematocrit 41.4 % (37.0-47.0) Mean Corpuscular Volume 88 FL (80-99) Mean Corpuscular Hemoglobin 28.0 PG (27.0-31.0) Mean Corpuscular Hemoglobin Concent 31.8 G/DL (32.0-36.0) L Red Cell Distribution Width 14.5 % (11.6-14.8) Platelet Count 202 K/UL (150-450) Mean Platelet Volume 8.6 FL (6.5-10.1) Neutrophils (%) (Auto) 66.5 % (45.0-75.0) Lymphocytes (%) (Auto) 14.8 % (20.0-45.0) L Monocytes (%) (Auto) 10.3 % (1.0-10.0) H Eosinophils (%) (Auto) 7.1 % (0.0-3.0) H Basophils (%) (Auto) 1.3 % (0.0-2.0) Sodium Level 137 MMOL/L (136-145) Potassium Level 4.1 MMOL/L (3.5-5.1) Chloride Level 103 MMOL/L (98-107) Carbon Dioxide Level 25 MMOL/L (21-32) Anion Gap 9 mmol/L (5-15) Blood Urea Nitrogen 10 mg/dL (7-18) Creatinine 0.7 MG/DL (0.55-1.30) Estimat Glomerular Filtration Rate > 60 mL/min (>60) Glucose Level 129 MG/DL (74-106) H Calcium Level 9.0 MG/DL (8.5-10.1) Intake and Output 11/19/20 11/20/20 19:00 07:00 Intake Total 400 ml 600 ml Balance 400 ml 600 ml Intake Oral 400 ml 600 ml # Voids 3 3 Objective PHYSICAL EXAMINATION: GENERAL: The patient is well-developed, well-nourished obese female, in no apparent distress. HEENT: Eyes, pupils are equal and responsive to light and accommodation. Extraocular movements are intact. NECK: Supple without lymphadenopathy. CHEST: Lungs are clear to auscultation bilaterally without wheezes or rales. CARDIOVASCULAR: Regular rhythm and rate. S1 and S2 normal without murmurs, rubs, or gallops. ABDOMEN: Soft, nontender, and nondistended. Positive bowel sounds. No evidence of hepatosplenomegaly. Currently, no rebound or guarding noted. EXTREMITIES: Negative for clubbing, cyanosis, or edema. RECTAL/GENITAL: Not performed. NEUROLOGIC: Cranial nerves II through XII are grossly intact without focal deficits. Assessment/Plan Status Narrative Patient : LETICIA BANEGAS Referring Physician: Geraldine Pelayo M.D. ID Number:[id number] Service Date: 11/16/20 : 1950 Report Date: 11/16/20 Gender: F Accession No.: [id number] Location: [facility] Procedure: MRI Brain no Contrast MRI HEAD Without Contrast HISTORY: Altered mental status COMPARISON: Head CT 16 November 2020 TECHNIQUE: Multiplanar and multiecho MRI images of the brain obtained without contrast FINDINGS: No abnormal intra- or extra-axial collections or parenchymal lesions are seen. There are involutional changes with prominence of the sulci, basal cisterns and ventricles. Scattered white matter hyperintensities are present, likely from small vessel disease. Large area of restricted diffusion involving the left temporal lobe and occipital lobe corresponding to a hypoattenuation the recent head CT without hemorrhagic changes.. This area demonstrates edema and sulcal thickening. IMPRESSION: 1. Restricted diffusion from acute or subacute ischemia involving the left temporal and occipital lobes. No midline shift appreciated. Age- related changes are present. No acute hemorrhage. 2. Involutional changes with small vessel disease. Assessment/Plan ASSESSMENT: This is a 70-year-old female. 1. Altered mental status. 2. Acute left cerebrovascular accident. 3. Hypertensive emergency 4. Asthma. TREATMENT: 1. Altered mental status, this may be secondary to acute cerebrovascular accident. 2. Acute left cerebrovascular accident. A Neurology consultation has been obtained with Dr Leo. The patient has been started empirically on aspirin. Follow recommendations of Neurology. PT/OT eval 3. Hypertension. The patient has hypertensive emergency by criteria admission blood pressure. The patient has been started on hydralazine p.r.n. The patient has been started on carvedilol 3.125 mg twice daily. Follow recommendations of Cardiology. 4. Asthma. 5. Bilateral pneumonia by chest x-ray. ABX= ceftriaxone and azithromycin. A Pulmonary consultation = Dr. Mcmillan. 6. Discharge planning: Acute rehab contracted with [facility] Lennox Loco MD Nov 20, 2020 11:25
--- NOTE | 2020-11-20 13:35 | Neurology Progress Note ---
Interim History Interim History ROS Limited/Unobtainable: No Complaints: pt has no complaints seen with Dr. Leo Objective Physical Exam Last Vital Signs Date Time Temp Pulse Resp B/P (MAP) Pulse Ox O2 Delivery O2 Flow Rate FiO2 11/20/20 11:17 78 159/76 11/20/20 09:00 Room Air 11/20/20 08:00 97.8 20 98 Laboratory Tests Test 11/19/20 16:36 11/20/20 04:30 11/20/20 05:15 11/20/20 11:22 POC Whole Blood Glucose 149 MG/DL (74-106) H 146 MG/DL (74-106) H 178 MG/DL (74-106) H White Blood Count 6.8 K/UL (4.8-10.8) Red Blood Count 4.72 M/UL (4.20-5.40) Hemoglobin 13.2 G/DL (12.0-16.0) Hematocrit 41.4 % (37.0-47.0) Mean Corpuscular Volume 88 FL (80-99) Mean Corpuscular Hemoglobin 28.0 PG (27.0-31.0) Mean Corpuscular Hemoglobin Concent 31.8 G/DL (32.0-36.0) L Red Cell Distribution Width 14.5 % (11.6-14.8) Platelet Count 202 K/UL (150-450) Mean Platelet Volume 8.6 FL (6.5-10.1) Neutrophils (%) (Auto) 66.5 % (45.0-75.0) Lymphocytes (%) (Auto) 14.8 % (20.0-45.0) L Monocytes (%) (Auto) 10.3 % (1.0-10.0) H Eosinophils (%) (Auto) 7.1 % (0.0-3.0) H Basophils (%) (Auto) 1.3 % (0.0-2.0) Sodium Level 137 MMOL/L (136-145) Potassium Level 4.1 MMOL/L (3.5-5.1) Chloride Level 103 MMOL/L (98-107) Carbon Dioxide Level 25 MMOL/L (21-32) Anion Gap 9 mmol/L (5-15) Blood Urea Nitrogen 10 mg/dL (7-18) Creatinine 0.7 MG/DL (0.55-1.30) Estimat Glomerular Filtration Rate > 60 mL/min (>60) Glucose Level 129 MG/DL (74-106) H Calcium Level 9.0 MG/DL (8.5-10.1) Neurologic Exam Objective Physical Exam: VS reviewed General: Patient is lying in bed no acute distress Neuro: Awake and Alert Oriented x4, has insight to situation Comprehension receptive phasia not able to answer in text to what is being asked.Language parameters intact. Cranial nerves II-XII are tested Pupils are round equal and sluggish. However right sided visual deficit noted. Tongue is midline. Motor: No involuntary movements. Bilateral extremity strength is equal 5/5 bilateral lower extremity 5/5. Sensation intact to light and touch. Coordination and gait intact. Impression/Recommendations Diagnostic Impression Assessment and Rec's 1. CVA, left temporal and occipital lobes with right sided visual depth field deficit and receptive aphasia --> MRI Brain and CT Head noted --> MRA Head and Neck reviewed as well --> continue ASA --> Order Fasting Lipids and consider statin Lipitor 80mg po daily after reviewing results-was ordered and is Still pending! --> had a family phone meeting with daughter Deanna and her brother Mac for 30 minutes on 11/19/[address] Leo discussed halfway management and findings. 2. Hypertension --> Bp meds,monitor closely BP goal 140/60 3. Obesity. --> weight loss Thank you for allowing us to participate in the care of this patient consultation greatly appreciated. Discussed in detail with my supervising physician Dr. Burt Leo, who is in agreement with plan of care. The time of the note does not necessarily reflect the time the patient was seen. Carmen Melara BOWLING BALL WEIGHER AND PACKER Nov 20, 2020 13:35
--- NOTE | 2020-11-20 19:37 | NUR ---
NURSE HAND-OFF REPORT: Important Events on Shift:Pt had continuously high blood pressure, ORTHO TECH Adler aware and adjusted doses and meds. Patient Status: Stable Diet: Cardiac Pending Orders: Pending Results/Labs: Pending MD notification: Latest Vital Signs: Temperature 97.7 , Pulse 88 , B/P 172 /71 , Respiratory Rate 20 , O2 SAT 98 , Room Air, O2 Flow Rate . Vital Sign Comment: Stable EKG Rhythm: Sinus Rhythm Rhythm change?: N MD Notified?: - MD Response: Latest Chakraborty Fall Score: 75 Fall Risk: High Risk Safety Measures: Call light Within Reach, Bed Alarm Zone 1, Side Rails Side Rails x2, Bed position Low and Locked. Fall Precautions: Yellow Socks Yellow Gown Door Sign Patient Fall Education Report given to Madeleine/RN.
--- NOTE | 2020-11-20 19:38 | NUR ---
NURSE NOTES: Received report from JUAN Erazo; noted AOX1-2, Maltese speaking; comfortable in bed; PUI for XCOVID-19 awaiting COVID-19 pCR results collected today AM; in room air; in no acute distress; denies any pain nor discomfort; with peripheral IV site noted on R hand 22 gauge; intact and patent saline locked; with accucheck ACHS; will monitor BP d/t episode of HTN during AM shift; ambulatory with assistance and encouraged to call for assistance when trying to go get up to go to the bathroom; call light within reach; side rails x 2; bed locked and in low position; will continue to monitor.
[2020-11-20] MEDS: Atorvastatin 20mg tab ORAL SCH (21:36)
[2020-11-21] VITALS: BP 166/114
[2020-11-21 04:00] VITALS: BP 171/75
[2020-11-21 04:15] LABS: HEMATOCRIT 42.2 % (37.0-47.0); HEMOGLOBIN 13.4 G/DL (12.0-16.0); MEAN CORPUSCULAR VOLUME 87 FL (80-99); PLATELET COUNT 188 K/UL (150-450); RED BLOOD COUNT 4.84 M/UL (4.20-5.40); RED CELL DISTRIBUTION WIDTH 14.4 % (11.6-14.8); WHITE BLOOD COUNT 4.3 K/UL (4.8-10.8)
[2020-11-21 04:26] LABS: ANION GAP 6 mmol/L (5-15); BLOOD UREA NITROGEN 9 mg/dL (7-18); CALCIUM 9.2 MG/DL (8.5-10.1); CARBON DIOXIDE 28 MMOL/L (21-32); CHLORIDE 103 MMOL/L (98-107); CREATININE 0.7 MG/DL (0.55-1.30); POTASSIUM 3.9 MMOL/L (3.5-5.1); SODIUM 137 MMOL/L (136-145)
[2020-11-21] MEDS: NovoLOG Insulin Flexpen SUBQ SCH ×4 (05:38→21:00)
--- NOTE | 2020-11-21 06:53 | NUR ---
NURSE HAND-OFF REPORT: Important Events on Shift: SBP between 160-170s; Hydralazine 50 mg PO PRN given @ 2357; PUI COVID-19 pending test results, taken on 11/20/20 Patient Status: stable, ambulatory with assistance, with episodes of confusion Diet: cardiac diet, thin liquids Pending Orders: N Pending Results/Labs: PCR COVID-19 Pending MD notification:N Latest Vital Signs: Temperature 99.2 , Pulse 72 , B/P 171 /75 , Respiratory Rate 18 , O2 SAT 96 , Room Air, O2 Flow Rate . Vital Sign Comment: within baseline EKG Rhythm: Sinus Rhythm Rhythm change?: N MD Notified?: - MD Response: Latest Chakraborty Fall Score: 75 Fall Risk: High Risk Safety Measures: Call light Within Reach, Bed Alarm Zone 1, Side Rails Side Rails x2, Bed position Low and Locked. Fall Precautions: Yellow Socks Yellow Gown Patient Fall Education Report given to JUAN Dawson.
--- NOTE | 2020-11-21 07:55 | NUR ---
NURSE NOTES: pt is sitting on the edge of the bed eating breakfast. pt is on auto body repair technician, RA, no signs of cardiac or respiratory distress noted. IV is patent, flushes well. bed is locked and in lowest position, call light is within reach. no complaints of pain.
[2020-11-21] MEDS: Aspirin Baby 81mg ORAL SCH (08:35)
[2020-11-21] MEDS: cefTRIAXone 1 GM in NS 55 ML IVPB SCH (08:35)
[2020-11-21] MEDS: Enoxaparin 40mg Inj SUBQ SCH (08:38)
[2020-11-21 08:55] VITALS: BP 155/88
--- NOTE | 2020-11-21 09:45 | NUR ---
PT EVALUATION NOTE Patient seen for initial evaluation and treatment initiated. Patient presents with generalized weakness and decreased balance which impairs patient's level of functional mobility and safety. Patient performs bed mobility and transfers with SBA, slightly unsteady upon standing however no loss of balance. Patient ambulated 50 ft in her room due to isolation precautions without assistive device, slightly unsteady however no loss of balance. Patient will benefit from skilled inpatient PT intervention to improve overall strength and postural stability for improved level of functional mobility and safety. Recommend short term SNF for rehab vs home with family and home PT once medically cleared by MD. No DME needs identified at this time. Addendum: 11/21/20 at 1221 by BYRON ALANIZ PT Amended: Links added.
--- NOTE | 2020-11-21 10:32 | Pulmonology Progress Note ---
Subjective ROS Limited/Unobtainable: No Allergies: Coded Allergies: EGG (Verified Allergy, Unknown, 11/16/20) Shrimp (Verified Allergy, Unknown, 11/16/20) All Systems: reviewed and negative except above Subjective on tele denies CP SOB remains on RA, sat stable awaiting COVID 19 by PCR result, in isolation for now -> never done in ED, done 11/20 BP still elevated Objective Last 24 Hour Vital Signs Date Time Temp Pulse Resp B/P (MAP) Pulse Ox O2 Delivery O2 Flow Rate FiO2 11/21/20 08:55 98.1 86 20 155/88 (110) 97 11/21/20 08:36 86 155/88 11/21/20 08:36 86 155/88 11/21/20 04:00 99.2 72 18 171/75 (107) 96 11/21/20 04:00 71 11/21/20 00:00 76 11/21/20 00:00 98.6 77 18 166/114 (131) 98 11/20/20 23:57 166/114 11/20/20 21:36 89 172/73 11/20/20 21:00 Room Air 11/20/20 20:00 99.0 89 18 172/73 (106) 97 11/20/20 20:00 80 11/20/20 17:15 88 172/71 (104) 11/20/20 16:00 97.7 83 20 183/83 (116) 98 11/20/20 16:00 68 11/20/20 15:51 183/83 11/20/20 12:00 73 11/20/20 12:00 97.7 75 20 148/67 (94) 98 11/20/20 11:17 78 159/76 Intake and Output 11/20/20 11/21/20 19:00 07:00 Intake Total 400 ml 300 ml Balance 400 ml 300 ml Intake Oral 400 ml 300 ml # Voids 2 2 Objective General Appearance: no apparent distress, confused, awake, responsive, but unable to provide answers as being asked Lines, tubes and drains: peripheral HEENT: normocephalic, atraumatic, anicteric, mucous membranes moist , apparent R sided visual deficit Neck: supple Respiratory/Chest: lungs clear - with moderate air exchange , no accessory muscle use Cardiovascular/Chest: normal rate, regular rhythm Abdomen: normal bowel sounds, non tender, soft Skin Exam: warm/dry Neurologic: responsive, unable to squeeze my hands pronator drift not seen , unable to access gait, Laboratory Tests 11/20/20 11:22: POC Whole Blood Glucose 178H 11/20/20 16:31: POC Whole Blood Glucose 129H 11/20/20 21:26: POC Whole Blood Glucose 135H 11/21/20 03:38: White Blood Count 4.3L, Red Blood Count 4.84, Hemoglobin 13.4, Hematocrit 42.2, Mean Corpuscular Volume 87, Mean Corpuscular Hemoglobin 27.7, Mean Corpuscular Hemoglobin Concent 31.7L, Red Cell Distribution Width 14.4, Platelet Count 188, Mean Platelet Volume 9.8, Neutrophils (%) (Auto) , Lymphocytes (%) (Auto) , Monocytes (%) (Auto) , Eosinophils (%) (Auto) , Basophils (%) (Auto) , Sodium Level 137, Potassium Level 3.9, Chloride Level 103, Carbon Dioxide Level 28, Anion Gap 6, Blood Urea Nitrogen 9, Creatinine 0.7, Estimat Glomerular Filtration Rate > 60, Glucose Level 140H, Calcium Level 9.2 11/21/20 05:36: POC Whole Blood Glucose 130H Current Medications Medications (Trade) Dose Ordered Sig/Jaquan Route PRN Reason Start Time Stop Time Status Last Admin Dose Admin Albuterol Sulfate (Proventil MDI) 2 puff Q4H PRN INH Shortness of Breath 11/16/20 17:15 02/14/21 17:14 Amlodipine Besylate (Norvasc) 5 mg DAILY ORAL 11/20/20 10:45 12/20/20 10:44 11/21/20 08:36 Aspirin (ASA) 81 mg DAILY ORAL 11/17/20 09:00 01/01/21 08:59 11/21/20 08:35 Atorvastatin Calcium (Lipitor) 40 mg BEDTIME ORAL 11/17/20 21:00 02/15/21 20:59 11/20/20 21:36 Azithromycin 500 mg/Sodium Chloride 275 ml @ 275 mls/hr DAILY IV 11/17/20 09:00 11/22/20 08:59 11/20/20 09:38 Barium Sulfate (Varibar Honey) 250 ml NOW PRN MC RAD 11/18/20 14:00 11/21/20 13:50 Barium Sulfate (Varibar [place]) 240 ml NOW PRN MC RAD 11/18/20 14:00 11/21/20 13:50 Barium Sulfate (Varibar Pudding) 230 ml NOW PRN MC RAD 11/18/20 14:00 11/21/20 13:50 Barium Sulfate (Varibar Thin Liquid powder) 148 gm NOW PRN MC RAD 11/18/20 14:00 11/21/20 13:50 Ceftriaxone Sodium 1 gm/ Sodium Chloride 55 ml @ 110 mls/hr DAILY IVPB 11/17/20 09:00 11/24/20 08:59 11/21/20 08:35 Dextrose (Dextrose 50%) 25 ml Q30M PRN IV Hypoglycemia 11/18/20 15:45 02/16/21 15:44 Dextrose (Dextrose 50%) 50 ml Q30M PRN IV Hypoglycemia 11/18/20 15:45 02/16/21 15:44 Enoxaparin Sodium (Lovenox) 40 mg DAILY SUBQ 11/18/20 09:00 02/16/21 08:59 11/21/20 08:38 Hydralazine HCl (Apresoline) 50 mg Q6HR PRN ORAL SBP >160 11/16/20 20:45 02/14/21 20:44 11/20/20 23:57 Insulin Aspart (NovoLOG) BEFORE MEALS AND HS SUBQ 11/19/20 11:30 02/17/21 11:29 11/20/20 11:30 Metoprolol Tartrate (Lopressor) 25 mg Q12HR ORAL 11/20/20 21:00 02/18/21 20:59 11/21/20 08:36 Assessment/Plan Assessment/Plan ASSESSMENT Pneumonia Suspected COVID-19/PUI ( close contact with daughter, diagnosed positive ) Acute toxic metabolic encephalopathy ( possibly due to COVID vs neurological condition) Abnormal MRI -likely CVA, 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 HTN emergency hx of asthma Diabetes PLAN OF CARE tele isolation room , monitored floor O2 titrate to keep sat > 92% HFA get CAMRYN COV2 by PCR given close contact with positive patient- not done in ER, just done 09/20 awaiting results empiric abx hold on steroids, given pulse ox stable on RA a/coagulation with LMWH fup inflam markers HFA no evidence of asthma exacerbation fup imaging neuro eval appreciated MRI/MRA head and neck pending ASA lipid panel -elevated TC and LDL -> start statin carotid duplex -> No hemodynamically significant stenosis in either ICA. ECHO with pEF venous Duplex BLE NGT neck MRA. head MRI ->No gross evidence of significant extracranial cerebrovascular disease. No evidence of significant proximal cerebrovascular insufficiency BP management - changed to BB and CCB, Hydralazine prn check HgA1c given hyperglycemia -7.4 BS management with SSI swallow eval working with PT - recommends SNF vs home with home PT fall precautions case discussed and evaluated by supervising physician Abril Adler NP Nov 21, 2020 10:32
[2020-11-21] MEDS: HydrALAZINE 50mg tab ORAL PRN (10:38)
[2020-11-21] MEDS: Azithromycin 500 MG in NS 275 ML IV SCH (11:23)
--- NOTE | 2020-11-21 11:25 | NUR ---
RD ASSESSMENT & RECOMMENDATIONS SEE CARE ACTIVITY FOR COMPLETE ASSESSMENT DAILY ESTIMATED NEEDS: Needs based on cardiac, DM/ 62kg abw 25-30 kcals/kg 0469-5052 total kcals 1-1.5 g protein/kg 62-93 g total protein 25-30 mL/kg 8189-2252 total fluid mLs NUTRITION DIAGNOSIS: Altered nutrition related lab values R/T HTN and DM as evidenced by elev BPs (231/103 upon adm -> 212/92), A1C 7.4 CURRENT DIET:CARDIAC, mech soft ground PO DIET RECOMMENDATIONS: CCHO MED, LOW NA / texture per ENVIRONMENTAL SUSTAINABILITY MANAGER ADDITIONAL RECOMMENDATIONS: * Calibrated bedscale wt * Monitor for continued good PO tolerance and improvement in intake * Monitor lytes, replete as needed
--- NOTE | 2020-11-21 11:52 | Neurology Progress Note ---
Interim History Interim History ROS Limited/Unobtainable: No Complaints: Pt is doing better clincially, no complaints. Objective Physical Exam Last Vital Signs Date Time Temp Pulse Resp B/P (MAP) Pulse Ox O2 Delivery O2 Flow Rate FiO2 11/21/20 11:25 64 194/89 11/21/20 08:55 98.1 20 97 11/20/20 21:00 Room Air Laboratory Tests Test 11/20/20 16:31 11/20/20 21:26 11/21/20 03:38 11/21/20 05:36 POC Whole Blood Glucose 129 MG/DL (74-106) H 135 MG/DL (74-106) H 130 MG/DL (74-106) H White Blood Count 4.3 K/UL (4.8-10.8) L Red Blood Count 4.84 M/UL (4.20-5.40) Hemoglobin 13.4 G/DL (12.0-16.0) Hematocrit 42.2 % (37.0-47.0) Mean Corpuscular Volume 87 FL (80-99) Mean Corpuscular Hemoglobin 27.7 PG (27.0-31.0) Mean Corpuscular Hemoglobin Concent 31.7 G/DL (32.0-36.0) L Red Cell Distribution Width 14.4 % (11.6-14.8) Platelet Count 188 K/UL (150-450) Mean Platelet Volume 9.8 FL (6.5-10.1) Neutrophils (%) (Auto) % (45.0-75.0) Lymphocytes (%) (Auto) % (20.0-45.0) Monocytes (%) (Auto) % (1.0-10.0) Eosinophils (%) (Auto) % (0.0-3.0) Basophils (%) (Auto) % (0.0-2.0) Sodium Level 137 MMOL/L (136-145) Potassium Level 3.9 MMOL/L (3.5-5.1) Chloride Level 103 MMOL/L (98-107) Carbon Dioxide Level 28 MMOL/L (21-32) Anion Gap 6 mmol/L (5-15) Blood Urea Nitrogen 9 mg/dL (7-18) Creatinine 0.7 MG/DL (0.55-1.30) Estimat Glomerular Filtration Rate > 60 mL/min (>60) Glucose Level 140 MG/DL (74-106) H Calcium Level 9.2 MG/DL (8.5-10.1) Neurologic Exam Objective Physical Exam: VS reviewed General: Patient is lying in bed no acute distress Neuro: Awake and Alert Oriented x4, has insight to situation Comprehension receptive phasia not able to answer in text to what is being asked.Language parameters intact. Cranial nerves II-XII are tested Pupils are round equal and sluggish. However right sided visual deficit noted. Tongue is midline. Motor: No involuntary movements. Bilateral extremity strength is equal 5/5 bilateral lower extremity 5/5. Sensation intact to light and touch. Coordination and gait intact. Impression/Recommendations Diagnostic Impression Assessment and Rec's 1. CVA, left temporal and occipital lobes with right sided visual depth field deficit and receptive aphasia --> MRI Brain and CT Head noted --> MRA Head and Neck reviewed as well --> continue ASA --> Order Fasting Lipids and consider statin Lipitor 80mg po daily after reviewing results-was ordered and is Still pending! --> had a family phone meeting with daughter Deanna and her brother Mac for 30 minutes on 11/19/[address] Leo discussed intermediate management and findings. --> Speech Therapy which can be done outpatient. No motor deficits does not require outpatient PT 2. Hypertension --> Bp meds,monitor 3. Obesity. --> weight loss Thank you for allowing us to participate in the care of this patient consultation greatly appreciated. Discussed in detail with my supervising physician Dr. Burt Leo, who is in agreement with plan of care. The time of the note does not necessarily reflect the time the patient was seen. Carmen Melara MASTER AUTOMOTIVE GLASS TECHNICIAN Nov 21, 2020 11:52
[2020-11-21 12:00] VITALS: BP 194/89
--- NOTE | 2020-11-21 12:01 | NUR ---
CASE MANAGEMENT:REVIEW 11/21/20 SI: ACUTE LT CVA. BILATERAL PNEUMONIA 98.1 86 20 212/92 97% ON RA GLUCOSE+140 IS: IV AZITHROMYCIN QD IV ROCEPHIN Q24 LOPRESSOR 50MG Q12 ( STARTED @ 25MG LAST NIGHT, DOSE INCREASED THIS AM) NORVASC PO QD LOVENOX SQ QD LIPITOR PO QHS : TELEMETRY STATUS DCP: FROM HOME PLAN: PATIENT HAS BEEN HERE FOR 5 DAYS AND [facility] HAS NOT MADE ANY ATTEMPT TO CONTACT US OR ARRANGE FOR THEIR PATIENT TO BE TRANSFERRED TO A [facility] FACILITY WE HAVE TRIED MULTIPLE TIMES TO REACH OUT TO [facility] BY PHONE AND HAVE BEEN PLACED ON HOLD FOR 1 HOUR OR MORE CLINICALS AND REVIEWS HAVE BEEN FAXED DAILY WAITING FOR 5 DAYS FOR A [facility] TAPE CUTTER TO CALL US @ [phone]
--- NOTE | 2020-11-21 14:01 | Internal Med Progress Note ---
Subjective Physician Name Titi White Attending Physician Titi White MD Current Medications Medications (Trade) Dose Ordered Sig/Jaquan Route PRN Reason Start Time Stop Time Status Last Admin Dose Admin Albuterol Sulfate (Proventil MDI) 2 puff Q4H PRN INH Shortness of Breath 11/16/20 17:15 02/14/21 17:14 Amlodipine Besylate (Norvasc) 5 mg DAILY ORAL 11/20/20 10:45 12/20/20 10:44 11/21/20 08:36 Aspirin (ASA) 81 mg DAILY ORAL 11/17/20 09:00 01/01/21 08:59 11/21/20 08:35 Atorvastatin Calcium (Lipitor) 40 mg BEDTIME ORAL 11/17/20 21:00 02/15/21 20:59 11/20/20 21:36 Azithromycin 500 mg/Sodium Chloride 275 ml @ 275 mls/hr DAILY IV 11/17/20 09:00 11/22/20 08:59 11/21/20 11:23 Ceftriaxone Sodium 1 gm/ Sodium Chloride 55 ml @ 110 mls/hr DAILY IVPB 11/17/20 09:00 11/24/20 08:59 11/21/20 08:35 Dextrose (Dextrose 50%) 25 ml Q30M PRN IV Hypoglycemia 11/18/20 15:45 02/16/21 15:44 Dextrose (Dextrose 50%) 50 ml Q30M PRN IV Hypoglycemia 11/18/20 15:45 02/16/21 15:44 Enoxaparin Sodium (Lovenox) 40 mg DAILY SUBQ 11/18/20 09:00 02/16/21 08:59 11/21/20 08:38 Hydralazine HCl (Apresoline) 50 mg Q6HR PRN ORAL SBP >160 11/16/20 20:45 02/14/21 20:44 11/21/20 10:38 Insulin Aspart (NovoLOG) BEFORE MEALS AND HS SUBQ 11/19/20 11:30 02/17/21 11:29 11/20/20 11:30 Metoprolol Tartrate (Lopressor) 50 mg Q12HR ORAL 11/21/20 11:00 02/18/21 10:59 11/21/20 11:25 Allergies: Coded Allergies: EGG (Verified Allergy, Unknown, 11/16/20) Shrimp (Verified Allergy, Unknown, 11/16/20) Subjective awake, alert, responsive, no acute distress, in [facility] isolation room. Objective Last Vital Signs Date Time Temp Pulse Resp B/P (MAP) Pulse Ox O2 Delivery O2 Flow Rate FiO2 11/21/20 11:25 64 194/89 11/21/20 08:55 98.1 20 97 11/20/20 21:00 Room Air Laboratory Tests Test 11/20/20 16:31 11/20/20 21:26 11/21/20 03:38 11/21/20 05:36 POC Whole Blood Glucose 129 MG/DL (74-106) H 135 MG/DL (74-106) H 130 MG/DL (74-106) H White Blood Count 4.3 K/UL (4.8-10.8) L Red Blood Count 4.84 M/UL (4.20-5.40) Hemoglobin 13.4 G/DL (12.0-16.0) Hematocrit 42.2 % (37.0-47.0) Mean Corpuscular Volume 87 FL (80-99) Mean Corpuscular Hemoglobin 27.7 PG (27.0-31.0) Mean Corpuscular Hemoglobin Concent 31.7 G/DL (32.0-36.0) L Red Cell Distribution Width 14.4 % (11.6-14.8) Platelet Count 188 K/UL (150-450) Mean Platelet Volume 9.8 FL (6.5-10.1) Neutrophils (%) (Auto) % (45.0-75.0) Lymphocytes (%) (Auto) % (20.0-45.0) Monocytes (%) (Auto) % (1.0-10.0) Eosinophils (%) (Auto) % (0.0-3.0) Basophils (%) (Auto) % (0.0-2.0) Sodium Level 137 MMOL/L (136-145) Potassium Level 3.9 MMOL/L (3.5-5.1) Chloride Level 103 MMOL/L (98-107) Carbon Dioxide Level 28 MMOL/L (21-32) Anion Gap 6 mmol/L (5-15) Blood Urea Nitrogen 9 mg/dL (7-18) Creatinine 0.7 MG/DL (0.55-1.30) Estimat Glomerular Filtration Rate > 60 mL/min (>60) Glucose Level 140 MG/DL (74-106) H Calcium Level 9.2 MG/DL (8.5-10.1) Intake and Output 11/20/20 11/21/20 19:00 07:00 Intake Total 400 ml 300 ml Balance 400 ml 300 ml Intake Oral 400 ml 300 ml # Voids 2 2 Objective General: No acute distress, awake and alert HEENT: NCAT, sclera anicteric, PERRL, EOMI. Neck: Supple, no significant jugular venous distention, Lungs: Fair inspiratory effort, no accessory muscle use, no Wheeze or Rales. Heart: Regular rate and rhythm, normal S1/S2, no murmurs Abdomen: soft, nontender, nondistended. Normoactive bowel sounds. / Rectal: Refused and deferred. Extremities: No Cyanosis , clubbing or edema. 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 CODE STATUS: Full code DVT prophylaxis: Lovenox Monitor laboratory and cultures. Titi White MD Nov 21, 2020 14:01
[2020-11-21 16:00] VITALS: BP 142/93
[2020-11-21] MEDS ORDERED: NS 275ml ONE (17:50)
[2020-11-21] MEDS ORDERED: Tubing IV Secondary IV ONE (17:50)
--- NOTE | 2020-11-21 19:35 | NUR ---
NURSE HAND-OFF REPORT: Important Events on Shift:[] n/a Patient Status: [] full code Diet: [] cardiac Pending Orders: [] Pending Results/Labs:[] Pending MD notification:[] Latest Vital Signs: Temperature 97.9 , Pulse 63 , B/P 142 /93 , Respiratory Rate 22 , O2 SAT 98 , Room Air, O2 Flow Rate . Vital Sign Comment: [] EKG Rhythm: Sinus Rhythm Rhythm change?: N MD Notified?: - MD Response: Latest Chakraborty Fall Score: 75 Fall Risk: High Risk Safety Measures: Call light Within Reach, Bed Alarm Zone 1, Side Rails Side Rails x2, Bed position Low and Locked. Fall Precautions: Yellow Socks Yellow Gown Patient Fall Education Report given to [].Sigrid MARTINEZ
--- NOTE | 2020-11-21 19:40 | NUR ---
NURSE NOTES: RECEIVED REPORT FROM JUAN CARMICHAEL. PT IN BED AWAKE, ALERT/ORIENTED X2, ABLE TO MAKE NEEDS KNOWN IN [place]. NO RESP DISTRESS NOTED. SATING 97% ON ROOM AIR. NO C/O PAIN OR DISCOMFORT.BED IN LOW POSITION & LOCKED. SIDE RAILS UP X2. BED ALARM ON. CALL LIGHT WITH IN REACH. EXPLAINED TO PT TO USE CALL LIGHT BEFORE GETTING OUT OF BED. WILL CONTINUE PLAN OF CARE.
[2020-11-21 20:00] VITALS: BP 155/71
[2020-11-21] MEDS: Atorvastatin 20mg tab ORAL SCH (21:02)
[2020-11-22] VITALS (7 sets, daily range): BP systolic 144–176; BP diastolic 68–97
[2020-11-22] MEDS: NovoLOG Insulin Flexpen SUBQ SCH ×4 (06:30→20:21)
--- NOTE | 2020-11-22 06:43 | NUR ---
NURSE NOTES: LEFT MESSAGE FOR DR. SHEARER INFORMING HIM THAT PTS PCR CAME BACK POSITIVE.
--- NOTE | 2020-11-22 07:25 | NUR ---
NURSE NOTES: RECEIVED REPORT FROM JUAN SINGH. PT IN BED LYING HOB ELEVATED. AWAKE, ALERT/ORIENTED X4, ABLE TO MAKE NEEDS KNOWN IN ARABIC. ABLE TO FOLLOW COMMANDS. NO CARDIO-RESP DISTRESS NOTED. AMBULATES WITH STEADY GAIT. INSTRUCTED TO UTILIZE CALL LIGHT FOR ASSISTANCE. NO C/O PAIN OR DISCOMFORT NOTED. BED IN LOWEST POSITION & LOCKED. SIDERAILS ARE UP X2. BED ALARM ON AND LOCK @ ALL TIMES. CALL LIGHT WITHIN EASY REACH. VERBALIZED UNDERSTANDING. WILL CONTINUE PLAN OF CARE.
--- NOTE | 2020-11-22 07:36 | NUR ---
NURSE HAND-OFF REPORT: Important Events on Shift:[N/A] Patient Status: [STABLE/FULL CODE] Diet: [] Pending Orders: [] Pending Results/Labs:[] Pending MD notification:[] Latest Vital Signs: Temperature 98.3 , Pulse 59 , B/P 144 /88 , Respiratory Rate 20 , O2 SAT 98 , Room Air, O2 Flow Rate . Vital Sign Comment: [] EKG Rhythm: Sinus Bradycardia Rhythm change?: Y MD Notified?: N - MD Response: Latest Chakraborty Fall Score: 75 Fall Risk: High Risk Safety Measures: Call light Within Reach, Bed Alarm Zone 1, Side Rails Side Rails x2, Bed position Low and Locked. Fall Precautions: Yellow Socks Yellow Gown Patient Fall Education Report given to COLIN CUADRA].
[2020-11-22] MEDS: Aspirin Baby 81mg ORAL SCH (08:40)
[2020-11-22] MEDS: Enoxaparin 40mg Inj SUBQ SCH (08:41)
[2020-11-22] MEDS: cefTRIAXone 1 GM in NS 55 ML IVPB SCH (09:00)
--- NOTE | 2020-11-22 09:14 | NUR ---
CASE MANAGEMENT:REVIEW 11/22/20 SI: ACUTE LT CVA. BILATERAL PNEUMONIA 98.8 67 18 155/97 97% ON RA GLUCOSE+124 IS: IV AZITHROMYCIN QD IV ROCEPHIN Q24 LOPRESSOR 50MG Q12 NORVASC PO QD LOVENOX SQ QD LIPITOR PO QHS : TELEMETRY STATUS DCP: FROM HOME PLAN: PATIENT HAS BEEN HERE FOR 6 DAYS AND [facility] HAS NOT MADE ANY ATTEMPT TO CONTACT US OR ARRANGE FOR THEIR PATIENT TO BE TRANSFERRED TO A [facility] FACILITY WE HAVE TRIED MULTIPLE TIMES TO REACH OUT TO [facility] BY PHONE AND HAVE BEEN PLACED ON HOLD FOR 1 HOUR OR MORE CLINICALS AND REVIEWS HAVE BEEN FAXED DAILY PATIENT NEEDS SNF PLACEMENT ~ AMBULATING 50fT WAITING FOR 6 DAYS FOR A [facility] [employer] TECH TO CALL US @ [phone]
--- NOTE | 2020-11-22 09:25 | NUR ---
DISCHARGE PLANNING WE HAVE BEEN TRYING TO GET IN TOUCH WITH SOMEBODY..ANYBODY AT [facility] FOR THE LAST 4 DAYS THEY AUTOMATICALLY PLACE YOU ON HOLD FOR AN HOUR OR MORE AND THEN LINE DISCONNECTS UNABLE TO SECURE SNF PLACEMENT FOR THIS UNTIL WE CAN SPEAK WITH A HAND THERAPIST AT [facility]
--- NOTE | 2020-11-22 10:26 | NUR ---
PT NOTE PT intervention deferred due to elevated BP 196/89. Donna [employer] PAR[employer]ROFESSIONAL notified, will re-attempt later as schedule permits.
[2020-11-22] MEDS: HydrALAZINE 50mg tab ORAL PRN ×2 (10:43→17:02)
--- NOTE | 2020-11-22 11:00 | NUR ---
NURSE NOTES: MEDICATED WITH HYDRALAZINE FOR SBP >160. PATIENT IS VERBALLY RESPONSIVE AND NO ACUTE CARDIO -RESP DISTRESS NOTED. WILL RECHECK AFTER AN HOUR. WILL CONT TO MONITOR.
--- NOTE | 2020-11-22 11:01 | Pulmonology Progress Note ---
Subjective ROS Limited/Unobtainable: No Allergies: Coded Allergies: EGG (Verified Allergy, Unknown, 11/16/20) Shrimp (Verified Allergy, Unknown, 11/16/20) All Systems: reviewed and negative except above Subjective on tele denies CP SOB remains on RA, sat stable awaiting COVID 19 by PCR 11/20 + ( not done in ED before as ordered) Objective Last 24 Hour Vital Signs Date Time Temp Pulse Resp B/P (MAP) Pulse Ox O2 Delivery O2 Flow Rate FiO2 11/22/20 10:43 192/79 11/22/20 08:40 67 155/97 11/22/20 08:40 67 155/97 11/22/20 08:00 98.8 67 18 155/97 (116) 97 11/22/20 04:00 98.3 64 20 144/88 (106) 98 11/22/20 04:00 59 11/22/20 00:00 97.7 60 20 157/84 (108) 97 11/22/20 00:00 60 11/21/20 21:03 68 155/71 11/21/20 21:00 Room Air 11/21/20 20:00 65 11/21/20 20:00 97.9 63 20 155/71 (99) 98 11/21/20 16:00 63 11/21/20 16:00 97.9 66 22 142/93 (109) 98 11/21/20 12:00 98.2 64 20 194/89 (124) 98 11/21/20 12:00 62 11/21/20 11:25 64 194/89 Intake and Output 11/21/20 11/22/20 19:00 07:00 Intake Total 600 ml 300 ml Balance 600 ml 300 ml Intake Oral 600 ml 300 ml # Voids 2 4 Objective General Appearance: no apparent distress, confused, awake, responsive, but unable to provide answers as being asked Lines, tubes and drains: peripheral HEENT: normocephalic, atraumatic, anicteric, mucous membranes moist , apparent R sided visual deficit Neck: supple Respiratory/Chest: lungs clear - with moderate air exchange , no accessory muscle use Cardiovascular/Chest: normal rate, regular rhythm Abdomen: normal bowel sounds, non tender, soft Skin Exam: warm/dry Neurologic: responsive, unable to squeeze my hands pronator drift not seen , unable to access gait, Microbiology Date/Time Source Procedure Growth Status 11/20/20 11:36 Nasopharynx Coronavirus COVID-19 PCR (ARVIND) - Final Complete Laboratory Tests 11/21/20 21:20: POC Whole Blood Glucose 139H 11/22/20 05:49: POC Whole Blood Glucose 124H Current Medications Medications (Trade) Dose Ordered Sig/Jaquan Route PRN Reason Start Time Stop Time Status Last Admin Dose Admin Albuterol Sulfate (Proventil MDI) 2 puff Q4H PRN INH Shortness of Breath 11/16/20 17:15 02/14/21 17:14 Amlodipine Besylate (Norvasc) 5 mg DAILY ORAL 11/20/20 10:45 12/20/20 10:44 11/22/20 08:40 Aspirin (ASA) 81 mg DAILY ORAL 11/17/20 09:00 01/01/21 08:59 11/22/20 08:40 Atorvastatin Calcium (Lipitor) 40 mg BEDTIME ORAL 11/17/20 21:00 02/15/21 20:59 11/21/20 21:02 Ceftriaxone Sodium 1 gm/ Sodium Chloride 55 ml @ 110 mls/hr DAILY IVPB 11/17/20 09:00 11/24/20 08:59 11/22/20 09:00 Dextrose (Dextrose 50%) 25 ml Q30M PRN IV Hypoglycemia 11/18/20 15:45 02/16/21 15:44 Dextrose (Dextrose 50%) 50 ml Q30M PRN IV Hypoglycemia 11/18/20 15:45 02/16/21 15:44 Enoxaparin Sodium (Lovenox) 40 mg DAILY SUBQ 11/18/20 09:00 02/16/21 08:59 11/22/20 08:41 Hydralazine HCl (Apresoline) 50 mg Q6HR PRN ORAL SBP >160 11/16/20 20:45 02/14/21 20:44 11/22/20 10:43 Insulin Aspart (NovoLOG) BEFORE MEALS AND HS SUBQ 11/19/20 11:30 02/17/21 11:29 11/21/20 17:38 Metoprolol Tartrate (Lopressor) 50 mg Q12HR ORAL 11/21/20 11:00 02/18/21 10:59 11/22/20 08:40 Assessment/Plan Assessment/Plan ASSESSMENT Pneumonia COVID-19 Acute toxic metabolic encephalopathy due to CVA CVA, 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 HTN emergency hx of asthma Diabetes PLAN OF CARE tele isolation room , monitored floor O2 titrate to keep sat > 92% HFA CAMRYN COV2 by PCR 11/20 + g empiric abx hold on steroids, given pulse ox stable on RA no need for REM given stable resp status a/coagulation with LMWH fup inflam markers HFA no evidence of asthma exacerbation fup imaging neuro eval appreciated MRI/MRA head and neck pending ASA lipid panel -elevated TC and LDL -> start statin carotid duplex -> No hemodynamically significant stenosis in either ICA. ECHO with pEF venous Duplex BLE NGT neck MRA. head MRI ->No gross evidence of significant extracranial cerebrovascular disease. No evidence of significant proximal cerebrovascular insufficiency BP management - BB and CCB ( dosing subsequently), Hydralazine prn check HgA1c given hyperglycemia -7.4 BS management with SSI swallow eval working with PT - recommends SNF vs home with home PT fall precautions dc plan pending for SNF for rehab vs home with home PT case discussed and evaluated by supervising physician Abril Adler NP Nov 22, 2020 11:01
--- NOTE | 2020-11-22 12:05 | Neurology Progress Note ---
Interim History Interim History ROS Limited/Unobtainable: No Complaints: pt remains stable jennifer RN no complaints Objective Physical Exam Last Vital Signs Date Time Temp Pulse Resp B/P (MAP) Pulse Ox O2 Delivery O2 Flow Rate FiO2 11/22/20 11:36 78 146/84 11/22/20 08:00 98.8 18 97 11/21/20 21:00 Room Air Laboratory Tests Test 11/21/20 21:20 11/22/20 05:49 11/22/20 11:40 POC Whole Blood Glucose 139 MG/DL (74-106) H 124 MG/DL (74-106) H 141 MG/DL (74-106) H Neurologic Exam Objective Physical Exam: VS reviewed General: Patient is lying in bed no acute distress Neuro: Awake and Alert Oriented x4, has insight to situation Comprehension receptive phasia not able to answer in text to what is being asked.Language parameters intact. Cranial nerves II-XII are tested Pupils are round equal and sluggish. However right sided visual deficit noted. Tongue is midline. Motor: No involuntary movements. Bilateral extremity strength is equal 5/5 bilateral lower extremity 5/5. Sensation intact to light and touch. Coordination and gait intact. Impression/Recommendations Diagnostic Impression Assessment and Rec's 1. CVA, left temporal and occipital lobes with right sided visual depth field deficit and receptive aphasia --> MRI Brain and CT Head noted --> MRA Head and Neck reviewed as well --> continue ASA --> Total Cholesterol elevated continue statin Lipitor 80mg po daily --> had a family phone meeting with daughter Deanna and her brother Mac for 30 minutes on 11/19/[address] Leo discussed penitentiary management and findings. --> Speech Therapy which can be done outpatient. No motor deficits does not require outpatient PT 2. Hypertension --> Bp meds,monitor 3. Obesity. --> weight loss Thank you for allowing us to participate in the care of this patient consultation greatly appreciated. Discussed in detail with my supervising physician Dr. Burt Leo, who is in agreement with plan of care. The time of the note does not necessarily reflect the time the patient was seen. Carmen Melara PRODUCT LISTER Nov 22, 2020 12:05
--- NOTE | 2020-11-22 14:00 | NUR ---
DISCHARGE PLANNING RECEIVED A CALL FROM [employer]PERATOR[employer]EL, T: [phone] STATING THAT ALL PRIOR AUTHORIZATIONS FOR POST ACUTE CARE HAS BEEN SUSPENDED UNTIL Dec FAXED CLINICALS TO RODOLFO DUFFY, T: [phone] SHE WILL REVIEW THE INFORMATION AND TRY TO FIND A COVID POSITIVE BED FOR THIS PATIENT SPOOL WORKERNICOLASA T: [phone] WILL FOLLOW UP
--- NOTE | 2020-11-22 16:01 | Internal Med Progress Note ---
Subjective Physician Name Titi White Attending Physician Titi White MD Current Medications Medications (Trade) Dose Ordered Sig/Jaquan Route PRN Reason Start Time Stop Time Status Last Admin Dose Admin Albuterol Sulfate (Proventil MDI) 2 puff Q4H PRN INH Shortness of Breath 11/16/20 17:15 02/14/21 17:14 Amlodipine Besylate (Norvasc) 5 mg BID ORAL 11/22/20 11:00 12/20/20 10:44 11/22/20 11:36 Aspirin (ASA) 81 mg DAILY ORAL 11/17/20 09:00 01/01/21 08:59 11/22/20 08:40 Atorvastatin Calcium (Lipitor) 40 mg BEDTIME ORAL 11/17/20 21:00 02/15/21 20:59 11/21/20 21:02 Ceftriaxone Sodium 1 gm/ Sodium Chloride 55 ml @ 110 mls/hr DAILY IVPB 11/17/20 09:00 11/24/20 08:59 11/22/20 09:00 Dextrose (Dextrose 50%) 25 ml Q30M PRN IV Hypoglycemia 11/18/20 15:45 02/16/21 15:44 Dextrose (Dextrose 50%) 50 ml Q30M PRN IV Hypoglycemia 11/18/20 15:45 02/16/21 15:44 Enoxaparin Sodium (Lovenox) 40 mg DAILY SUBQ 11/18/20 09:00 02/16/21 08:59 11/22/20 08:41 Hydralazine HCl (Apresoline) 50 mg Q6HR PRN ORAL SBP >160 11/16/20 20:45 02/14/21 20:44 11/22/20 10:43 Insulin Aspart (NovoLOG) BEFORE MEALS AND HS SUBQ 11/19/20 11:30 02/17/21 11:29 11/22/20 11:40 Metoprolol Tartrate (Lopressor) 50 mg Q12HR ORAL 11/21/20 11:00 02/18/21 10:59 11/22/20 08:40 Allergies: Coded Allergies: EGG (Verified Allergy, Unknown, 11/16/20) Shrimp (Verified Allergy, Unknown, 11/16/20) Subjective awake, alert, responsive, no acute distress, in COVID isolation room, on Room air. Objective Last Vital Signs Date Time Temp Pulse Resp B/P (MAP) Pulse Ox O2 Delivery O2 Flow Rate FiO2 11/22/20 12:08 98.4 63 20 148/68 (94) 96 11/22/20 09:00 Room Air Laboratory Tests Test 11/21/20 21:20 11/22/20 05:49 11/22/20 11:40 POC Whole Blood Glucose 139 MG/DL (74-106) H 124 MG/DL (74-106) H 141 MG/DL (74-106) H Microbiology Date/Time Source Procedure Growth Status 11/20/20 11:36 Nasopharynx Coronavirus COVID-19 PCR ([facility]) - Final Complete Intake and Output 11/21/20 11/22/20 19:00 07:00 Intake Total 600 ml 300 ml Balance 600 ml 300 ml Intake Oral 600 ml 300 ml # Voids 2 4 Objective General: No acute distress, awake and alert HEENT: NCAT, sclera anicteric, PERRL, EOMI. Neck: Supple, no significant jugular venous distention, Lungs: Fair inspiratory effort, no accessory muscle use, no Wheeze or Rales. Heart: Regular rate and rhythm, normal S1/S2, no murmurs Abdomen: soft, nontender, nondistended. Normoactive bowel sounds. / Rectal: Refused and deferred. Extremities: No Cyanosis , clubbing or edema. Neuro: A&O x 3, Able to move all extremities Assessment/Plan Assessment/Plan COVID-19 pneumonia. 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 Abx: Rocephin and azithromycin. CODE STATUS: Full code DVT prophylaxis: Lovenox Monitor laboratory and cultures. Titi White MD Nov 22, 2020 16:01
--- NOTE | 2020-11-22 19:09 | NUR ---
NURSE HAND-OFF REPORT: Important Events on Shift:[blood pressure monitoring; safety measure rendered. ] Patient Status: [stable] Diet: [cardiac] Pending Orders: [labs] Pending Results/Labs:[am] Pending MD notification:[] Latest Vital Signs: Temperature 98.6 , Pulse 65 , B/P 156 /90 , Respiratory Rate 18 , O2 SAT 97 , Room Air, O2 Flow Rate . Vital Sign Comment: [] EKG Rhythm: Sinus Rhythm Rhythm change?: N MD Notified?: N - MD Response: Latest Chakraborty Fall Score: 60 Fall Risk: High Risk Safety Measures: Call light Within Reach, Bed Alarm Zone 1, Side Rails Side Rails x2, Bed position Low and Locked. Fall Precautions: Yellow Socks Yellow Gown Patient Fall Education Report given to [arturo].
--- NOTE | 2020-11-22 20:00 | NUR ---
NURSE NOTES: RECEIVED PATIENT LYING IN BED, AWAKE, ALERT/ORIENTED X4, SINGAPOREAN SPEAKING, DENIES PAIN, NO SIGNS AND SYMPTOMS OF ACUTE CARDIO RESPIRATORY DISTRESS/SHORTNESS OF BREATH, NO PERIPHERAL EDEMA NOTED, SINUS RHYTHM ON SPECIAL SHOPPER. IV INTACT TO RIGHT HAND/GAUGE 22, NO REDNESS/SWELLING NOTED TO SITE. ISOLATION PRECAUTIONS OBSERVED AT ALL TIMES. ABDOMEN SOFT/NON DISTENDED/NON TENDER/AUDIBLE BOWEL SOUNDS, DENIES N/V/D. SIDE RAILS UP X2 FOR MOBILITY, BED IN LOWEST POSITION FOR SAFETY, FREQUENT ROUNDING FOR SAFETY/NEEDS. CONTINUE WITH CURRENT PLAN OF CARE. DISCHARGE PLAN ONGOING
[2020-11-22] MEDS: Atorvastatin 20mg tab ORAL SCH (20:17)
[2020-11-23] VITALS: BP 159/82
[2020-11-23 04:00] VITALS: BP 145/87
[2020-11-23 06:15] LABS: BASOPHILS % (AUTO) 1.2 % (0.0-2.0); EOSINOPHILS % (AUTO) 5.2 % (0.0-3.0); HEMATOCRIT 43.8 % (37.0-47.0); LYMPHOCYTES % (AUTO) 31.5 % (20.0-45.0); MEAN CORPUSCULAR VOLUME 87 FL (80-99); MONOCYTES % (AUTO) 15.4 % (1.0-10.0); NEUTROPHILS % (AUTO) 46.7 % (45.0-75.0); PLATELET COUNT 189 K/UL (150-450); RED BLOOD COUNT 5.03 M/UL (4.20-5.40); RED CELL DISTRIBUTION WIDTH 14.5 % (11.6-14.8); WHITE BLOOD COUNT 4.5 K/UL (4.8-10.8)
[2020-11-23] MEDS: NovoLOG Insulin Flexpen SUBQ SCH ×4 (06:30→20:24)
[2020-11-23 06:34] LABS: ANION GAP 7 mmol/L (5-15); BLOOD UREA NITROGEN 11 mg/dL (7-18); CARBON DIOXIDE 26 MMOL/L (21-32); CHLORIDE 104 MMOL/L (98-107); CREATININE 0.7 MG/DL (0.55-1.30); POTASSIUM 4.1 MMOL/L (3.5-5.1); SODIUM 137 MMOL/L (136-145)
--- NOTE | 2020-11-23 07:36 | NUR ---
NURSE HAND-OFF REPORT: Important Events on Shift:[UNEVENTFUL NIGHT, RESTED WELL] Patient Status: [STABLE, AFEBRILE] Diet: [CARDIAC MS GROUND] Pending Orders: [AM LABS] Pending Results/Labs:[N/A] Pending MD notification:[] Latest Vital Signs: Temperature 98.7 , Pulse 69 , B/P 145 /87 , Respiratory Rate 18 , O2 SAT 99 , Room Air, O2 Flow Rate . Vital Sign Comment: [] EKG Rhythm: Sinus Rhythm Rhythm change?: N MD Notified?: N - MD Response: Latest Chakraborty Fall Score: 60 Fall Risk: High Risk Safety Measures: Call light Within Reach, Bed Alarm Zone 1, Side Rails Side Rails x2, Bed position Low and Locked. Fall Precautions: Yellow Socks Yellow Gown Patient Fall Education Report given to [COLIN CUADRA].
--- NOTE | 2020-11-23 07:45 | NUR ---
NURSE NOTES: RECEIVED REPORT FROM JUAN VILLANUEVA. PT IN BED LYING HOB ELEVATED. AWAKE, ALERT/ORIENTED X4, ABLE TO MAKE NEEDS KNOWN IN JAPANESE. ABLE TO FOLLOW COMMANDS. NO CARDIO-RESP DISTRESS NOTED. AMBULATES WITH STEADY GAIT. INSTRUCTED TO UTILIZE CALL LIGHT FOR ASSISTANCE. NO C/O PAIN OR DISCOMFORT NOTED. BED IN LOWEST POSITION & LOCKED. SIDERAILS ARE UP X2. BED ALARM ON AND LOCK @ ALL TIMES. CALL LIGHT WITHIN EASY REACH. VERBALIZED UNDERSTANDING. WILL CONTINUE PLAN OF CARE.
[2020-11-23 07:58] VITALS: BP 152/86
[2020-11-23] MEDS: Aspirin Baby 81mg ORAL SCH (08:09)
[2020-11-23] MEDS: Enoxaparin 40mg Inj SUBQ SCH (08:10)
--- NOTE | 2020-11-23 09:08 | Pulmonology Progress Note ---
Subjective ROS Limited/Unobtainable: No Allergies: Coded Allergies: EGG (Verified Allergy, Unknown, 11/16/20) Shrimp (Verified Allergy, Unknown, 11/16/20) All Systems: reviewed and negative except above Subjective on tele denies CP SOB remains on RA, sat stable COVID 19 by PCR 11/20 + ( not done in ED before as ordered) Objective Last 24 Hour Vital Signs Date Time Temp Pulse Resp B/P (MAP) Pulse Ox O2 Delivery O2 Flow Rate FiO2 11/23/20 08:09 65 152/86 11/23/20 08:09 65 152/86 11/23/20 08:00 62 11/23/20 07:58 97.7 65 18 152/86 (108) 98 11/23/20 04:00 98.7 69 18 145/87 (106) 99 11/23/20 00:20 65 11/23/20 00:00 98.1 78 18 159/82 (107) 98 11/22/20 22:03 Room Air 11/22/20 20:18 72 171/89 11/22/20 20:00 97.8 72 18 171/89 (116) 96 11/22/20 20:00 65 11/22/20 18:15 156/90 (112) 11/22/20 17:02 65 176/81 11/22/20 17:02 176/81 11/22/20 16:00 71 11/22/20 16:00 98.6 65 18 176/81 (112) 97 11/22/20 12:08 98.4 63 20 148/68 (94) 96 11/22/20 12:00 72 11/22/20 11:36 78 146/84 11/22/20 10:43 192/79 Intake and Output 11/22/20 11/23/20 19:00 07:00 Intake Total 110 ml 480 ml Balance 110 ml 480 ml Intake Oral 480 ml IV Total 110 ml # Voids 4 2 Objective General Appearance: no apparent distress, confused, awake, responsive, but unable to provide answers as being asked Lines, tubes and drains: peripheral HEENT: normocephalic, atraumatic, anicteric, mucous membranes moist , apparent R sided visual deficit Neck: supple Respiratory/Chest: lungs clear - with moderate air exchange , no accessory muscle use Cardiovascular/Chest: normal rate, regular rhythm Abdomen: normal bowel sounds, non tender, soft Skin Exam: warm/dry Neurologic: responsive, unable to squeeze my hands pronator drift not seen , unable to access gait, Microbiology Date/Time Source Procedure Growth Status 11/20/20 11:36 Nasopharynx Coronavirus COVID-19 PCR ([facility]) - Final Complete Laboratory Tests 11/22/20 11:40: POC Whole Blood Glucose 141H 11/22/20 16:59: POC Whole Blood Glucose 138H 11/22/20 20:16: POC Whole Blood Glucose [Pending] 11/23/20 05:29: POC Whole Blood Glucose [Pending] 11/23/20 05:45: White Blood Count 4.5L, Red Blood Count 5.03, Hemoglobin 14.0, Hematocrit 43.8, Mean Corpuscular Volume 87, Mean Corpuscular Hemoglobin 27.9, Mean Corpuscular Hemoglobin Concent 31.9L, Red Cell Distribution Width 14.5, Platelet Count 189, Mean Platelet Volume 9.5, Neutrophils (%) (Auto) 46.7, Lymphocytes (%) (Auto) 31.5, Monocytes (%) (Auto) 15.4H, Eosinophils (%) (Auto) 5.2H, Basophils (%) (Auto) 1.2, Sodium Level 137, Potassium Level 4.1, Chloride Level 104, Carbon Dioxide Level 26, Anion Gap 7, Blood Urea Nitrogen 11, Creatinine 0.7, Estimat Glomerular Filtration Rate > 60, Glucose Level 129H, Calcium Level 9.0 Current Medications Medications (Trade) Dose Ordered Sig/Jaquan Route PRN Reason Start Time Stop Time Status Last Admin Dose Admin Albuterol Sulfate (Proventil MDI) 2 puff Q4H PRN INH Shortness of Breath 11/16/20 17:15 02/14/21 17:14 Amlodipine Besylate (Norvasc) 5 mg BID ORAL 11/22/20 11:00 12/20/20 10:44 11/23/20 08:09 Aspirin (ASA) 81 mg DAILY ORAL 11/17/20 09:00 01/01/21 08:59 11/23/20 08:09 Atorvastatin Calcium (Lipitor) 40 mg BEDTIME ORAL 11/17/20 21:00 02/15/21 20:59 11/22/20 20:17 Ceftriaxone Sodium 1 gm/ Sodium Chloride 55 ml @ 110 mls/hr DAILY IVPB 11/17/20 09:00 11/24/20 08:59 11/22/20 09:00 Dextrose (Dextrose 50%) 25 ml Q30M PRN IV Hypoglycemia 11/18/20 15:45 02/16/21 15:44 Dextrose (Dextrose 50%) 50 ml Q30M PRN IV Hypoglycemia 11/18/20 15:45 02/16/21 15:44 Enoxaparin Sodium (Lovenox) 40 mg DAILY SUBQ 11/18/20 09:00 02/16/21 08:59 11/23/20 08:10 Hydralazine HCl (Apresoline) 50 mg Q6HR PRN ORAL SBP >160 11/16/20 20:45 02/14/21 20:44 11/22/20 17:02 Insulin Aspart (NovoLOG) BEFORE MEALS AND HS SUBQ 11/19/20 11:30 02/17/21 11:29 11/22/20 20:21 Metoprolol Tartrate (Lopressor) 50 mg Q12HR ORAL 11/21/20 11:00 02/18/21 10:59 11/23/20 08:09 Assessment/Plan Assessment/Plan ASSESSMENT Pneumonia COVID-19 Acute toxic metabolic encephalopathy due to CVA Acute CVA, 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 HTN emergency Hx of asthma Diabetes PLAN OF CARE tele isolation room , monitored floor O2 titrate to keep sat > 92% HFA rapid COVID prior 11/16 was NGT , but had a close exposure ( daughter with COVID) CAMRYN COV2 by PCR 11/20 + , empiric abx: completed 5 d of Azithromycin, completing Ceftriaxone 7 days 11/24 hold on steroids, given pulse ox stable on RA no need for REM given stable resp status a/coagulation with LMWH fup inflam markers 9.6 - no evidence of asthma exacerbation fup imaging neuro eval appreciated MRI/MRA head and neck pending ASA lipid panel -elevated TC and LDL -> start statin carotid duplex -> No hemodynamically significant stenosis in either ICA. ECHO with pEF venous Duplex BLE NGT neck MRA. head MRI ->No gross evidence of significant extracranial cere brovascular disease. No evidence of significant proximal cerebrovascular insufficiency BP management - BB and CCB ( dosing subsequently), Hydralazine prn check HgA1c given hyperglycemia -7.4 BS management with SSI swallow eval working with PT - recommends SNF vs home with home PT fall precautions dc plan pending for SNF for rehab vs home with home PT case discussed and evaluated by supervising physician Abril Adler NP Nov 23, 2020 09:08
[2020-11-23] MEDS: cefTRIAXone 1 GM in NS 55 ML IVPB SCH (09:28)
--- NOTE | 2020-11-23 10:14 | NUR ---
*-*DISCHARGE PLANING*-* FAXED CLINICALS TO [facility] [address] [facility], T: [phone] SHE WILL REVIEW THE INFORMATION AND TRY TO FIND A COVID POSITIVE BED FOR THIS PATIENT. S/W RODOLFO, HASN'T FOUND PLACEMENT YET, WILL CALL BACK WHEN THERE IS AN ACCEPTING FACILITY.
--- NOTE | 2020-11-23 10:16 | NUR ---
*-*DISCHARGE PLANNING*-* PATIENT HAS BEEN REFERRED TO: [facility] P: [phone] S/W JOSE DAVID, ADMISSIONS NOT AVAILABLE, CALL BACK WEDNESDAY.
[2020-11-23] MEDS: HydrALAZINE 50mg tab ORAL PRN ×2 (11:43→23:26)
[2020-11-23 11:59] VITALS: BP 166/72
[2020-11-23 15:49] VITALS: BP 124/50
--- NOTE | 2020-11-23 18:25 | Internal Med Progress Note ---
Subjective Date of Service: Nov 23, 2020 Physician Name Lennox Loco Attending Physician Titi White MD Current Medications Medications (Trade) Dose Ordered Sig/Jaquan Route PRN Reason Start Time Stop Time Status Last Admin Dose Admin Albuterol Sulfate (Proventil MDI) 2 puff Q4H PRN INH Shortness of Breath 11/16/20 17:15 02/14/21 17:14 Amlodipine Besylate (Norvasc) 5 mg BID ORAL 11/22/20 11:00 12/20/20 10:44 11/23/20 17:07 Aspirin (ASA) 81 mg DAILY ORAL 11/17/20 09:00 01/01/21 08:59 11/23/20 08:09 Atorvastatin Calcium (Lipitor) 40 mg BEDTIME ORAL 11/17/20 21:00 02/15/21 20:59 11/22/20 20:17 Ceftriaxone Sodium 1 gm/ Sodium Chloride 55 ml @ 110 mls/hr DAILY IVPB 11/17/20 09:00 11/24/20 08:59 11/23/20 09:28 Dextrose (Dextrose 50%) 25 ml Q30M PRN IV Hypoglycemia 11/18/20 15:45 02/16/21 15:44 Dextrose (Dextrose 50%) 50 ml Q30M PRN IV Hypoglycemia 11/18/20 15:45 02/16/21 15:44 Enoxaparin Sodium (Lovenox) 40 mg DAILY SUBQ 11/18/20 09:00 02/16/21 08:59 11/23/20 08:10 Hydralazine HCl (Apresoline) 50 mg Q6HR PRN ORAL SBP >160 11/16/20 20:45 02/14/21 20:44 11/23/20 11:43 Insulin Aspart (NovoLOG) BEFORE MEALS AND HS SUBQ 11/19/20 11:30 02/17/21 11:29 11/23/20 11:44 Metoprolol Tartrate (Lopressor) 50 mg Q12HR ORAL 11/21/20 11:00 02/18/21 10:59 11/23/20 08:09 Allergies: Coded Allergies: EGG (Verified Allergy, Unknown, 11/16/20) Shrimp (Verified Allergy, Unknown, 11/16/20) ROS Limited/Unobtainable: No Constitutional: Reports: no symptoms HEENT: Reports: no symptoms Cardiovascular: Reports: no symptoms Respiratory: Reports: no symptoms Gastrointestinal/Abdominal: Reports: no symptoms Genitourinary: Reports: no symptoms Neurologic/Psychiatric: Reports: no symptoms Subjective 70 YO F admitted with altered mental status. Now acute cerebral vascular accident and COVID 19 pneumonia. Cover for Int Nam-Dr White. Objective Last Vital Signs Date Time Temp Pulse Resp B/P (MAP) Pulse Ox O2 Delivery O2 Flow Rate FiO2 11/23/20 17:07 63 124/50 11/23/20 15:49 99.1 18 99 11/23/20 10:10 Room Air Laboratory Tests Test 11/22/20 20:16 11/23/20 05:29 11/23/20 05:45 11/23/20 11:25 POC Whole Blood Glucose Pending Pending 179 MG/DL (74-106) H White Blood Count 4.5 K/UL (4.8-10.8) L Red Blood Count 5.03 M/UL (4.20-5.40) Hemoglobin 14.0 G/DL (12.0-16.0) Hematocrit 43.8 % (37.0-47.0) Mean Corpuscular Volume 87 FL (80-99) Mean Corpuscular Hemoglobin 27.9 PG (27.0-31.0) Mean Corpuscular Hemoglobin Concent 31.9 G/DL (32.0-36.0) L Red Cell Distribution Width 14.5 % (11.6-14.8) Platelet Count 189 K/UL (150-450) Mean Platelet Volume 9.5 FL (6.5-10.1) Neutrophils (%) (Auto) 46.7 % (45.0-75.0) Lymphocytes (%) (Auto) 31.5 % (20.0-45.0) Monocytes (%) (Auto) 15.4 % (1.0-10.0) H Eosinophils (%) (Auto) 5.2 % (0.0-3.0) H Basophils (%) (Auto) 1.2 % (0.0-2.0) Sodium Level 137 MMOL/L (136-145) Potassium Level 4.1 MMOL/L (3.5-5.1) Chloride Level 104 MMOL/L (98-107) Carbon Dioxide Level 26 MMOL/L (21-32) Anion Gap 7 mmol/L (5-15) Blood Urea Nitrogen 11 mg/dL (7-18) Creatinine 0.7 MG/DL (0.55-1.30) Estimat Glomerular Filtration Rate > 60 mL/min (>60) Glucose Level 129 MG/DL (74-106) H Calcium Level 9.0 MG/DL (8.5-10.1) Test 11/23/20 16:33 POC Whole Blood Glucose 120 MG/DL (74-106) H Intake and Output 11/22/20 11/23/20 19:00 07:00 Intake Total 110 ml 480 ml Balance 110 ml 480 ml Intake Oral 480 ml IV Total 110 ml # Voids 4 2 Objective PHYSICAL EXAMINATION: GENERAL: The patient is well-developed, well-nourished obese female, in no apparent distress. HEENT: Eyes, pupils are equal and responsive to light and accommodation. Extraocular movements are intact. NECK: Supple without lymphadenopathy. CHEST: Lungs are clear to auscultation bilaterally without wheezes or rales. CARDIOVASCULAR: Regular rhythm and rate. S1 and S2 normal without murmurs, rubs, or gallops. ABDOMEN: Soft, nontender, and nondistended. Positive bowel sounds. No evidence of hepatosplenomegaly. Currently, no rebound or guarding noted. EXTREMITIES: Negative for clubbing, cyanosis, or edema. RECTAL/GENITAL: Not performed. NEUROLOGIC: Cranial nerves II through XII are grossly intact without focal deficits. Assessment/Plan Status Narrative Patient : LETICIA BANEGAS Referring Physician: Geraldine Pelayo M.D. ID Number:[id number] Service Date: 11/16/20 : 1950 Report Date: 11/16/20 Gender: F Accession No.: [id number] Location: [facility] Procedure: MRI Brain no Contrast MRI HEAD Without Contrast HISTORY: Altered mental status COMPARISON: Head CT 16 November 2020 TECHNIQUE: Multiplanar and multiecho MRI images of the brain obtained without contrast FINDINGS: No abnormal intra- or extra-axial collections or parenchymal lesions are seen. There are involutional changes with prominence of the sulci, basal cisterns and ventricles. Scattered white matter hyperintensities are present, likely from small vessel disease. Large area of restricted diffusion involving the left temporal lobe and occipital lobe corresponding to a hypoattenuation the recent head CT without hemorrhagic changes.. This area demonstrates edema and sulcal thickening. IMPRESSION: 1. Restricted diffusion from acute or subacute ischemia involving the left temporal and occipital lobes. No midline shift appreciated. Age- related changes are present. No acute hemorrhage. 2. Involutional changes with small vessel disease. Assessment/Plan ASSESSMENT: This is a 70-year-old female. 1. Altered mental status. 2. Acute left cerebrovascular accident. 3. Hypertensive emergency 4. Asthma. 5. COVID 19 pneumonia TREATMENT: 1. Altered mental status, this may be secondary to acute cerebrovascular accident. 2. Acute left cerebrovascular accident. A Neurology consultation has been obtained with Dr Leo. The patient has been started empirically on aspirin. Follow recommendations of Neurology. PT/OT eval 3. Hypertension. The patient has hypertensive emergency by criteria admission blood pressure. The patient has been started on hydralazine p.r.n. The patient has been started on carvedilol 3.125 mg twice daily. Follow recommendations of Cardiology. 4. Asthma. 5. Bilateral pneumonia by chest x-ray. ABX= ceftriaxone A Pulmonary consultation = Dr. Mcmillan. 6. Discharge planning: Acute rehab contracted with [facility] Lennox Loco MD Nov 23, 2020 18:25
--- NOTE | 2020-11-23 18:56 | NUR ---
NURSE HAND-OFF REPORT: Important Events on Shift:[uneventful day. b/p monitored, seen by PT] Patient Status: [stable] Diet: [cardiac] Pending Orders: [labs] Pending Results/Labs:[am] Pending MD notification:[] Latest Vital Signs: Temperature 99.1 , Pulse 63 , B/P 124 /50 , Respiratory Rate 18 , O2 SAT 99 , Room Air, O2 Flow Rate . Vital Sign Comment: [] EKG Rhythm: Sinus Rhythm Rhythm change?: N MD Notified?: N - MD Response: Latest Chakraborty Fall Score: 60 Fall Risk: High Risk Safety Measures: Call light Within Reach, Bed Alarm Zone 1, Side Rails Side Rails x2, Bed position Low and Locked. Fall Precautions: Yellow Socks Yellow Gown Patient Fall Education Report given to [dimple].
--- NOTE | 2020-11-23 19:20 | NUR ---
NURSE NOTES: RECEIVED REPORT FROM COLIN CUADRA. PT IN BED AWAKE, ALERT/ORIENTED X4, ABLE TO MAKE NEEDS KNOWN IN [place]. NO RESP DISTRESS NOTED. SATING 95% ON ROOM AIR. NO C/O PAIN OR DISCOMFORT.BED IN LOW POSITION & LOCKED. SIDE RAILS UP X2. BED ALARM ON. CALL LIGHT WITH IN REACH. EXPLAINED TO PT TO USE CALL LIGHT BEFORE GETTING OUT OF BED. WILL CONTINUE PLAN OF CARE.
[2020-11-23 20:00] VITALS: BP 157/88
[2020-11-23] MEDS: Atorvastatin 20mg tab ORAL SCH (20:24)
[2020-11-24] VITALS: BP 165/75
[2020-11-24 04:00] VITALS: BP 164/68
[2020-11-24] MEDS: NovoLOG Insulin Flexpen SUBQ SCH ×3 (06:03→16:30)
[2020-11-24] MEDS: HydrALAZINE 50mg tab ORAL PRN (06:03)
--- NOTE | 2020-11-24 06:59 | NUR ---
NURSE HAND-OFF REPORT: Important Events on Shift:[N/A] Patient Status: [STABLE FULL CODE] Diet: [] Pending Orders: [] Pending Results/Labs:[] Pending MD notification:[] Latest Vital Signs: Temperature 98.0 , Pulse 70 , B/P 164 /79 , Respiratory Rate 20 , O2 SAT 97 , Room Air, O2 Flow Rate . Vital Sign Comment: [] EKG Rhythm: Sinus Rhythm Rhythm change?: N MD Notified?: N - MD Response: Latest Chakraborty Fall Score: 60 Fall Risk: High Risk Safety Measures: Call light Within Reach, Bed Alarm Zone 1, Side Rails Side Rails x2, Bed position Low and Locked. Fall Precautions: Yellow Socks Yellow Gown Patient Fall Education Report given to [COLIN CUADRA].
--- NOTE | 2020-11-24 07:20 | NUR ---
NURSE NOTES: RECEIVED REPORT FROM JUAN WATSON. PT IN BED LYING HOB ELEVATED. AWAKE, ALERT/ORIENTED X4, ABLE TO MAKE NEEDS KNOWN IN [place]. ABLE TO FOLLOW COMMANDS. NO CARDIO-RESP DISTRESS NOTED. AMBULATES WITH STEADY GAIT. INSTRUCTED TO UTILIZE CALL LIGHT FOR ASSISTANCE. NO C/O PAIN OR DISCOMFORT NOTED. BED IN LOWEST POSITION & LOCKED. SIDERAILS ARE UP X2. BED ALARM ON AND LOCK @ ALL TIMES. CALL LIGHT WITHIN EASY REACH. VERBALIZED UNDERSTANDING. WILL CONTINUE PLAN OF CARE.
[2020-11-24 07:29] VITALS: BP 150/72
[2020-11-24 07:50] LABS: BASOPHILS % (AUTO) 1.2 % (0.0-2.0); EOSINOPHILS % (AUTO) 3.6 % (0.0-3.0); HEMOGLOBIN 13.9 G/DL (12.0-16.0); LYMPHOCYTES % (AUTO) 34.4 % (20.0-45.0); MEAN CORPUSCULAR VOLUME 88 FL (80-99); MONOCYTES % (AUTO) 13.5 % (1.0-10.0); NEUTROPHILS % (AUTO) 47.4 % (45.0-75.0); PLATELET COUNT 205 K/UL (150-450); RED BLOOD COUNT 4.91 M/UL (4.20-5.40); RED CELL DISTRIBUTION WIDTH 14.4 % (11.6-14.8); WHITE BLOOD COUNT 4.4 K/UL (4.8-10.8)
[2020-11-24 08:09] LABS: ANION GAP 8 mmol/L (5-15); BLOOD UREA NITROGEN 15 mg/dL (7-18); CALCIUM 8.4 MG/DL (8.5-10.1); CARBON DIOXIDE 23 MMOL/L (21-32); CHLORIDE 101 MMOL/L (98-107); CREATININE 0.8 MG/DL (0.55-1.30); POTASSIUM 4.1 MMOL/L (3.5-5.1); SODIUM 132 MMOL/L (136-145)
[2020-11-24] MEDS: Enoxaparin 40mg Inj SUBQ SCH (08:14)
[2020-11-24] MEDS: Aspirin Baby 81mg ORAL SCH (08:15)
--- NOTE | 2020-11-24 08:15 | Pulmonology Progress Note ---
Subjective ROS Limited/Unobtainable: No Allergies: Coded Allergies: EGG (Verified Allergy, Unknown, 11/16/20) Shrimp (Verified Allergy, Unknown, 11/16/20) All Systems: reviewed and negative except above Subjective on tele denies CP SOB remains on RA, sat stable COVID 19 by PCR 11/20 + Objective Last 24 Hour Vital Signs Date Time Temp Pulse Resp B/P (MAP) Pulse Ox O2 Delivery O2 Flow Rate FiO2 11/24/20 07:29 98.9 67 18 150/72 (98) 96 11/24/20 06:03 164/79 11/24/20 04:00 98.0 70 20 164/68 (100) 97 11/24/20 04:00 62 11/24/20 00:00 69 11/24/20 00:00 98.7 64 18 165/75 (105) 96 11/23/20 23:26 165/79 11/23/20 21:00 Room Air 11/23/20 20:24 74 157/89 11/23/20 20:00 98.6 74 18 157/88 (111) 95 11/23/20 20:00 72 11/23/20 17:07 63 124/50 11/23/20 16:04 63 11/23/20 15:49 99.1 60 18 124/50 (74) 99 11/23/20 12:25 56 11/23/20 11:59 97.9 57 18 166/72 (103) 99 11/23/20 11:43 166/70 11/23/20 10:10 Room Air Intake and Output 11/23/20 11/24/20 19:00 07:00 Intake Total 910 ml 400 ml Balance 910 ml 400 ml Intake Oral 800 ml 400 ml IV Total 110 ml # Voids 3 3 # Bowel Movements 1 Objective General Appearance: no apparent distress, confused, awake, responsive, but un able to provide answers as being asked Lines, tubes and drains: peripheral HEENT: normocephalic, atraumatic, anicteric, mucous membranes moist , apparent R sided visual deficit Neck: supple Respiratory/Chest: lungs clear - with moderate air exchange , no accessory muscle use Cardiovascular/Chest: normal rate, regular rhythm Abdomen: normal bowel sounds, non tender, soft Skin Exam: warm/dry Neurologic: responsive, unable to squeeze my hands pronator drift not seen , unable to access gait, Laboratory Tests 11/23/20 11:25: POC Whole Blood Glucose 179H 11/23/20 16:33: POC Whole Blood Glucose 120H 11/23/20 20:07: POC Whole Blood Glucose 120H 11/24/20 05:00: White Blood Count 4.4L, Red Blood Count 4.91, Hemoglobin 13.9, Hematocrit 43.0, Mean Corpuscular Volume 88, Mean Corpuscular Hemoglobin 28.4, Mean Corpuscular Hemoglobin Concent 32.4, Red Cell Distribution Width 14.4, Platelet Count 205, Mean Platelet Volume 9.1, Neutrophils (%) (Auto) 47.4, Lymphocytes (%) (Auto) 34.4, Monocytes (%) (Auto) 13.5H, Eosinophils (%) (Auto) 3.6H, Basophils (%) (Auto) 1.2, Sodium Level [Pending], Potassium Level [Pending], Chloride Level [Pending], Carbon Dioxide Level [Pending], Blood Urea Nitrogen [Pending], Creatinine [Pending], Estimat Glomerular Filtration Rate [Pending], Glucose Level [Pending], Calcium Level [Pending], C-Reactive Protein, Quantitative [Pending] 11/24/20 05:44: POC Whole Blood Glucose 123H Current Medications Medications (Trade) Dose Ordered Sig/Jaquan Route PRN Reason Start Time Stop Time Status Last Admin Dose Admin Albuterol Sulfate (Proventil MDI) 2 puff Q4H PRN INH Shortness of Breath 11/16/20 17:15 02/14/21 17:14 Amlodipine Besylate (Norvasc) 5 mg BID ORAL 11/22/20 11:00 12/20/20 10:44 11/23/20 17:07 Aspirin (ASA) 81 mg DAILY ORAL 11/17/20 09:00 01/01/21 08:59 11/23/20 08:09 Atorvastatin Calcium (Lipitor) 40 mg BEDTIME ORAL 11/17/20 21:00 02/15/21 20:59 11/23/20 20:24 Ceftriaxone Sodium 1 gm/ Sodium Chloride 55 ml @ 110 mls/hr DAILY IVPB 11/17/20 09:00 11/24/20 08:59 11/23/20 09:28 Dextrose (Dextrose 50%) 25 ml Q30M PRN IV Hypoglycemia 11/18/20 15:45 02/16/21 15:44 Dextrose (Dextrose 50%) 50 ml Q30M PRN IV Hypoglycemia 11/18/20 15:45 02/16/21 15:44 Enoxaparin Sodium (Lovenox) 40 mg DAILY SUBQ 11/18/20 09:00 02/16/21 08:59 11/23/20 08:10 Hydralazine HCl (Apresoline) 50 mg Q6HR PRN ORAL SBP >160 11/16/20 20:45 02/14/21 20:44 11/24/20 06:03 Insulin Aspart (NovoLOG) BEFORE MEALS AND HS SUBQ 11/19/20 11:30 02/17/21 11:29 11/23/20 11:44 Metoprolol Tartrate (Lopressor) 50 mg Q12HR ORAL 11/21/20 11:00 02/18/21 10:59 11/23/20 20:24 Assessment/Plan Assessment/Plan ASSESSMENT Pneumonia COVID-19 Acute toxic metabolic encephalopathy due to CVA Acute CVA, 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 HTN emergency Hx of asthma Diabetes PLAN OF CARE tele isolation room , monitored floor O2 titrate to keep sat > 92% HFA rapid COVID prior 11/16 was NGT , but had a close exposure ( daughter with COVID) CAMRYN COV2 by PCR 11/20 + , empiric abx: completed 5 d of Azithromycin, completing Ceftriaxone 7 days 11/24 hold on steroids, given pulse ox stable on RA no need for REM given stable resp status a/coagulation with LMWH fup inflam markers 9.6 - pending no evidence of asthma exacerbation fup CXR in am Venous Duplex BLE NGT 11/18 neuro eval appreciated MRI/MRA head and neck pending ASA lipid panel -elevated TC and LDL -> start statin carotid duplex -> No hemodynamically significant stenosis in either ICA. ECHO with pEF venous Duplex BLE NGT neck MRA. head MRI ->No gross evidence of significant extracranial cerebrovascular disease. No evidence of significant proximal cerebrovascular insufficiency BP management - BB and CCB ( dosing subsequently), Hydralazine prn check HgA1c given hyperglycemia -7.4 BS management with SSI swallow eval working with PT - recommends SNF vs home with home PT fall precautions dc plan pending for SNF referred to SNF but no acceptance during the weekend case discussed and evaluated by supervising physician Abril Adler NP Nov 24, 2020 08:15
[2020-11-24 11:52] VITALS: BP 149/58
--- NOTE | 2020-11-24 14:14 | NUR ---
NURSE NOTES: OBTAINED DISCHARGE ORDER FROM DR SHEARER. DAUGHTER, GENE PREFERS FOR PATIENT TO GO HOME. PMD PROVIDED PATIENT'S PHARM # [phone]. AWAITS FOR CALL BACK. WILL CONT TO MONITOR.
[2020-11-24 15:13] VITALS: BP 152/66
--- NOTE | 2020-11-24 15:39 | Internal Med Progress Note ---
Subjective Date of Service: Nov 24, 2020 Physician Name Loco,Lennox Attending Physician Titi White MD Current Medications Medications (Trade) Dose Ordered Sig/Jaquan Route PRN Reason Start Time Stop Time Status Last Admin Dose Admin Albuterol Sulfate (Proventil MDI) 2 puff Q4H PRN INH Shortness of Breath 11/16/20 17:15 02/14/21 17:14 Amlodipine Besylate (Norvasc) 5 mg BID ORAL 11/22/20 11:00 12/20/20 10:44 11/24/20 08:15 Aspirin (ASA) 81 mg DAILY ORAL 11/17/20 09:00 01/01/21 08:59 11/24/20 08:15 Atorvastatin Calcium (Lipitor) 40 mg BEDTIME ORAL 11/17/20 21:00 02/15/21 20:59 11/23/20 20:24 Dextrose (Dextrose 50%) 25 ml Q30M PRN IV Hypoglycemia 11/18/20 15:45 02/16/21 15:44 Dextrose (Dextrose 50%) 50 ml Q30M PRN IV Hypoglycemia 11/18/20 15:45 02/16/21 15:44 Enoxaparin Sodium (Lovenox) 40 mg DAILY SUBQ 11/18/20 09:00 02/16/21 08:59 11/24/20 08:14 Hydralazine HCl (Apresoline) 50 mg Q6HR PRN ORAL SBP >160 11/16/20 20:45 02/14/21 20:44 11/24/20 06:03 Insulin Aspart (NovoLOG) BEFORE MEALS AND HS SUBQ 11/19/20 11:30 02/17/21 11:29 11/24/20 12:07 Metoprolol Tartrate (Lopressor) 50 mg Q12HR ORAL 11/21/20 11:00 02/18/21 10:59 11/24/20 08:15 Allergies: Coded Allergies: EGG (Verified Allergy, Unknown, 11/16/20) Shrimp (Verified Allergy, Unknown, 11/16/20) ROS Limited/Unobtainable: No Constitutional: Reports: no symptoms HEENT: Reports: no symptoms Cardiovascular: Reports: no symptoms Respiratory: Reports: no symptoms Gastrointestinal/Abdominal: Reports: no symptoms Genitourinary: Reports: no symptoms Neurologic/Psychiatric: Reports: no symptoms Subjective 70 YO F admitted with altered mental status. Now acute cerebral vascular accident and COVID 19 pneumonia. Cover for Int [facility]-Dr White. Objective Last Vital Signs Date Time Temp Pulse Resp B/P (MAP) Pulse Ox O2 Delivery O2 Flow Rate FiO2 11/24/20 15:13 98.5 67 18 152/66 (94) 97 11/24/20 09:05 Room Air Laboratory Tests Test 11/23/20 16:33 11/23/20 20:07 11/24/20 05:00 11/24/20 05:44 POC Whole Blood Glucose 120 MG/DL (74-106) H 120 MG/DL (74-106) H 123 MG/DL (74-106) H White Blood Count 4.4 K/UL (4.8-10.8) L Red Blood Count 4.91 M/UL (4.20-5.40) Hemoglobin 13.9 G/DL (12.0-16.0) Hematocrit 43.0 % (37.0-47.0) Mean Corpuscular Volume 88 FL (80-99) Mean Corpuscular Hemoglobin 28.4 PG (27.0-31.0) Mean Corpuscular Hemoglobin Concent 32.4 G/DL (32.0-36.0) Red Cell Distribution Width 14.4 % (11.6-14.8) Platelet Count 205 K/UL (150-450) Mean Platelet Volume 9.1 FL (6.5-10.1) Neutrophils (%) (Auto) 47.4 % (45.0-75.0) Lymphocytes (%) (Auto) 34.4 % (20.0-45.0) Monocytes (%) (Auto) 13.5 % (1.0-10.0) H Eosinophils (%) (Auto) 3.6 % (0.0-3.0) H Basophils (%) (Auto) 1.2 % (0.0-2.0) Sodium Level 132 MMOL/L (136-145) L Potassium Level 4.1 MMOL/L (3.5-5.1) Chloride Level 101 MMOL/L (98-107) Carbon Dioxide Level 23 MMOL/L (21-32) Anion Gap 8 mmol/L (5-15) Blood Urea Nitrogen 15 mg/dL (7-18) Creatinine 0.8 MG/DL (0.55-1.30) Estimat Glomerular Filtration Rate > 60 mL/min (>60) Glucose Level 117 MG/DL (74-106) H Calcium Level 8.4 MG/DL (8.5-10.1) L C-Reactive Protein, Quantitative 1.3 mg/dL (0.00-0.90) H Test 11/24/20 11:47 POC Whole Blood Glucose 163 MG/DL (74-106) H Intake and Output 11/23/20 11/24/20 19:00 07:00 Intake Total 910 ml 400 ml Balance 910 ml 400 ml Intake Oral 800 ml 400 ml IV Total 110 ml # Voids 3 3 # Bowel Movements 1 Objective PHYSICAL EXAMINATION: GENERAL: The patient is well-developed, well-nourished obese female, in no apparent distress. HEENT: Eyes, pupils are equal and responsive to light and accommodation. Extraocular movements are intact. NECK: Supple without lymphadenopathy. CHEST: Lungs are clear to auscultation bilaterally without wheezes or rales. CARDIOVASCULAR: Regular rhythm and rate. S1 and S2 normal without murmurs, rubs, or gallops. ABDOMEN: Soft, nontender, and nondistended. Positive bowel sounds. No evidence of hepatosplenomegaly. Currently, no rebound or guarding noted. EXTREMITIES: Negative for clubbing, cyanosis, or edema. RECTAL/GENITAL: Not performed. NEUROLOGIC: Cranial nerves II through XII are grossly intact without focal deficits. Assessment/Plan Status Narrative Patient : LETICIA BANEGAS Referring Physician: Geraldine Pelayo M.D. ID Number:[id number] Service Date: 11/16/20 : 1950 Report Date: 11/16/20 Gender: F Accession No.: [id number] Location: [facility] Procedure: MRI Brain no Contrast MRI HEAD Without Contrast HISTORY: Altered mental status COMPARISON: Head CT 16 November 2020 TECHNIQUE: Multiplanar and multiecho MRI images of the brain obtained without contrast FINDINGS: No abnormal intra- or extra-axial collections or parenchymal lesions are seen. There are involutional changes with prominence of the sulci, basal cisterns and ventricles. Scattered white matter hyperintensities are present, likely from small vessel disease. Large area of restricted diffusion involving the left temporal lobe and occipital lobe corresponding to a hypoattenuation the recent head CT without hemorrhagic changes.. This area demonstrates edema and sulcal thickening. IMPRESSION: 1. Restricted diffusion from acute or subacute ischemia involving the left temporal and occipital lobes. No midline shift appreciated. Age- related changes are present. No acute hemorrhage. 2. Involutional changes with small vessel disease. Assessment/Plan ASSESSMENT: This is a 70-year-old female. 1. Altered mental status. 2. Acute left cerebrovascular accident. 3. Hypertensive emergency 4. Asthma. 5. COVID 19 pneumonia TREATMENT: 1. Altered mental status, this may be secondary to acute cerebrovascular accident. 2. Acute left cerebrovascular accident. A Neurology consultation has been obtained with Dr Leo. The patient has been started empirically on aspirin. Follow recommendations of Neurology. PT/OT eval 3. Hypertension. The patient has hypertensive emergency by criteria admission blood pressure. The patient has been started on hydralazine p.r.n. The patient has been started on carvedilol 3.125 mg twice daily. Follow recommendations of Cardiology. 4. Asthma. 5. Bilateral pneumonia by chest x-ray. ABX= ceftriaxone A Pulmonary consultation = Dr. Mcmillan. 6. Discharge home today with home health Lennox Loco MD Nov 24, 2020 15:39
[2020-11-24] MEDS ORDERED: LOPRESSOR25 M1 ORAL (15:46)
[2020-11-24] MEDS ORDERED: LIPITOR20 MG ORAL (15:46)
[2020-11-24] MEDS ORDERED: AMLODIPINE BESY10 MG ORAL (15:46)
[2020-11-24 17:04] VITALS: BP 152/66
--- NOTE | 2020-11-24 17:30 | NUR ---
NURSE NOTES: D/C HOME WITH A&P H/H. PERSONAL BELONGINGS NOTED. SPOKE WITH [facility]ENE EARLIER TODAY FOR INSTRUCTIONS. RX AND DISCHARGE INSTRUCTIONS GIVEN TO THE PATIENT. REMOVED ORACLE ARCHITECT AND IV HEPLOCK. PATIENT IN STABLE CONDITION. PICKED UP BY GENE, DAUGHTER. COVID INSTRUCTIONS GIVEN.
--- NOTE | 2020-11-24 17:34 | Neurology Progress Note ---
Interim History Interim History ROS Limited/Unobtainable: No Complaints: no new deficits Interim History good rehab potential but wants too go home Objective Physical Exam Last Vital Signs Date Time Temp Pulse Resp B/P (MAP) Pulse Ox O2 Delivery O2 Flow Rate FiO2 11/24/20 17:04 67 152/66 11/24/20 15:13 98.5 18 97 11/24/20 09:05 Room Air Laboratory Tests Test 11/23/20 20:07 11/24/20 05:00 11/24/20 05:44 11/24/20 11:47 POC Whole Blood Glucose 120 MG/DL (74-106) H 123 MG/DL (74-106) H 163 MG/DL (74-106) H White Blood Count 4.4 K/UL (4.8-10.8) L Red Blood Count 4.91 M/UL (4.20-5.40) Hemoglobin 13.9 G/DL (12.0-16.0) Hematocrit 43.0 % (37.0-47.0) Mean Corpuscular Volume 88 FL (80-99) Mean Corpuscular Hemoglobin 28.4 PG (27.0-31.0) Mean Corpuscular Hemoglobin Concent 32.4 G/DL (32.0-36.0) Red Cell Distribution Width 14.4 % (11.6-14.8) Platelet Count 205 K/UL (150-450) Mean Platelet Volume 9.1 FL (6.5-10.1) Neutrophils (%) (Auto) 47.4 % (45.0-75.0) Lymphocytes (%) (Auto) 34.4 % (20.0-45.0) Monocytes (%) (Auto) 13.5 % (1.0-10.0) H Eosinophils (%) (Auto) 3.6 % (0.0-3.0) H Basophils (%) (Auto) 1.2 % (0.0-2.0) Sodium Level 132 MMOL/L (136-145) L Potassium Level 4.1 MMOL/L (3.5-5.1) Chloride Level 101 MMOL/L (98-107) Carbon Dioxide Level 23 MMOL/L (21-32) Anion Gap 8 mmol/L (5-15) Blood Urea Nitrogen 15 mg/dL (7-18) Creatinine 0.8 MG/DL (0.55-1.30) Estimat Glomerular Filtration Rate > 60 mL/min (>60) Glucose Level 117 MG/DL (74-106) H Calcium Level 8.4 MG/DL (8.5-10.1) L C-Reactive Protein, Quantitative 1.3 mg/dL (0.00-0.90) H Test 11/24/20 16:36 POC Whole Blood Glucose Pending Impression/Recommendations Problems: (1) Malignant hypertension (2) Encephalopathy (3) Pneumonia Diagnostic Impression 1. CVA, left temporal and occipital lobes with right sided visual depth field d eficit and receptive aphasia --> MRI Brain and CT Head noted --> MRA Head and Neck reviewed as well --> continue ASA --> Total Cholesterol elevated continue statin Lipitor 80mg po daily --> [facility] candidate home with Samir Cee MD Nov 24, 2020 17:34
--- NOTE | 2020-11-25 15:27 | Discharge Summary ---
Discharge Summary Discharge Summary _ Date of admission: 11/16/2020 Date of discharge: 11/24/[address] White History of Present Illness and Brief Hospital Course Ms. Cheatham is a 70-year-old female with past medical history of hypertension, who was brought into ER by family for evaluation of altered mental status. Per family, patient had been staying with her daughter who was COVID-19 positive. The initial COVID-19 test via rapid gene assay was negative in ER. Initial chest x-ray demonstrated right lower lobe infiltrate which was consistent with pneumonia. Patient was started on azithromycin as well as cefepime for pneumonia coverage. Patient presented with hypertension and was given hydralazi ne. Patient was admitted to the hospital for further treatment and evaluation. Given the findings in the checks x-ray and close contact with her daughter who was confirmed to have COVID-19, she was tested again with COVID-19 PCR test which came back positive. She was placed in respiratory isolation. She continued to receive broad-spectrum antibiotics for pneumonia coverage. However, steroids were held given normoxemia on room air. Brain CT demonstrated evidence of prior infarct. Brain MRI was notable for restricted diffusion from acute or subacute ischemia involving the left temporal and occipital lobes without midline shift or acute hemorrhage. She was started on antiplatelet therapy. Carotid duplex ultrasound did not demonstrate any hemodynamically significant stenosis in either ICA. Neck MRA and head MRI showed no gross evidence of significant extracranial cerebrovascular disease. And there was no evidence of significant proximal cerebrovascular insufficiency. Her lipid panel revealed elevated triglyceride and LDL and she was started on statin. Venous duplex ultrasound of the lower extremities were negative for DVT. She was also evaluated by physical therapist who found her ambulating 50 feet in her room without assistive device. It was recommended that she be discharged to short-term SNF for rehab or sent home with home physical therapy. On the day of discharge, she was medically stable on room air without pain or discomfort. She was discharged home with home health. Consultants: Neurology Carmen Melara NP Pulmonology Abril Adler NP Discharge Condition Improved and stable Final diagnoses Acute toxic metabolic encephalopathy Acute left cerebrovascular accident Hypertension Hypertensive emergency on admission History of asthma COVID-19 pneumonia Diabetes mellitus I have been assigned to dictate discharge summary for this account. I was not involved in the patient's management Vj Koenig Nov 25, 2020 15:27
--- NOTE | 2020-11-25 17:15 | Neurology Progress Note ---
Interim History Interim History ROS Limited/Unobtainable: No Complaints: no new deficits Interim History late entry stronger, more alert, asking togo home Objective Physical Exam Last Vital Signs Date Time Temp Pulse Resp B/P (MAP) Pulse Ox O2 Delivery O2 Flow Rate FiO2 11/24/20 17:04 67 152/66 11/24/20 15:13 98.5 18 97 11/24/20 09:05 Room Air Impression/Recommendations Problems: (1) Malignant hypertension (2) Encephalopathy (3) Pneumonia Diagnostic Impression 11/23 1. CVA, left temporal and occipital lobes with right sided visual depth field deficit and receptive aphasia --> MRI Brain and CT Head noted --> MRA Head and Neck reviewed as well --> continue ASA --> Total Cholesterol elevated continue statin Lipitor 80mg po daily --> [facility] candidate home with Samir Jackson MD Nov 25, 2020 17:15
--- NOTE | 2020-11-26 12:31 | NUR ---
INSURANCE DC SUMMARY FAXED TO BRAYAN ANDERSON/JD T: [phone] F: [phone] [place] [phone]
== END 2020-11-24 17:30 | disposition home or self-care (01) | DRG 64 ==
LOC: EMR 11:38 → 2E 12:10 → EDBEDREQ 17:38
DX: I63.532 Cerebral infarction due to unspecified occlusion or stenosis of left posterior cerebral artery (principal); J18.9 Pneumonia, unspecified organism; G92 Toxic encephalopathy; U07.1 COVID-19; J12.82 Pneumonia due to coronavirus disease 2019; I16.1 Hypertensive emergency; J45.909 Unspecified asthma, uncomplicated; Z20.822 Contact with and (suspected) exposure to COVID-19; E66.9 Obesity, unspecified; Z68.35 Body mass index [BMI] 35.0-35.9, adult; I10 Essential (primary) hypertension; E11.9 Type 2 diabetes mellitus without complications
CPT/HCPCS: 36415; 70450; 70544; 70547; 70551; 71045; 80048; 80053; 80061; 81003; 82550; 82728; 82803; 82962; 83036; 83605; 83615; 83735; 83880; 84100; 84484; 85025; 85379; 85610; 85730; 86140; 87040; 93005; 93306; 93880; 93970; 96365; 96367; 96375; 96376; 99285; J1815; U0002